=== PATIENT | female | born 1945 | race Caucasian/White ===

== ENCOUNTER 2020-05-30 07:16 | Outpatient (REF) | payer MEDICARE, SELFPAY ==
[2020-05-30 08:56] LABS: MANUAL DIFF FLAG NO
[2020-05-30 09:05] LABS: Basophils Percent Auto 0.3 % (0-2); Eosinophils Absolute Auto 0.1 X10*3/uL (0.0-0.4); Eosinophils Percent Auto 1.2 % (0-4); Hematocrit 45.7 % (37-47); Hemoglobin 14.9 g/dl (12.0-16.0); Imm Gran Abs Auto 0.02 X10*3/uL (0.00-0.03); Imm Gran Pct Auto 0.3 % (0.0-0.4); Lymphocytes Absolute Auto 1.5 X10*3/uL (1.2-4.9); Lymphocytes Percent Auto 25.4 % (20-40); Mean Corpuscular HGB Conc 32.6 g/dl (31.0-35.0); Mean Corpuscular Hemoglobin 30.6 pg (27.0-33.0); Mean Corpuscular Volume 93.8 fL (80-98); Mean Platelet Volume 10.1 fL (9.4-12.3); Monocytes Absolute Auto 0.5 X10*3/uL (0.1-1.2); Monocytes Percent Auto 7.7 % (2-11); Neutrophils Percent Auto 65.1 % (45-73); Platelet Count 324 X10*3/uL (160-400); Red Blood Count 4.87 X10*6/uL (4.20-5.50); Red Cell Distribution Width 11.7 % (11.0-16.0); White Blood Count 6.1 X10*3/uL (4.8-10.8)
[2020-05-30 09:08] LABS: Glucose Urine UA NEG (NEG); Leukocyte Esterase Urine 1+ (NEG); Nitrite Urine NEG (NEG); Specific Gravity - Urine 1.015 (1.005-1.025); Urine Blood 2+ (NEG); Urine Ketones NEG (NEG); Urine Protein NEG (NEG-TRACE)
[2020-05-30 09:11] LABS: Appearance Urine CLEAR; Color Urine YELLOW
[2020-05-30 09:21] LABS: Alanine Aminotransferase 49 U/L (0-31); Albumin Level 4.2 g/dL (3.5-5.0); Alkaline Phosphatase 93 U/L (39-117); Anion Gap 11 (12-20); Aspartate Amino Transferase 35 U/L (5-31); Bilirubin Total 0.5 mg/dL (0.0-1.0); Blood Urea Nitrogen 11 mg/dL (9-16); Calcium 8.9 mg/dL (8.4-10.2); Carbon Dioxide 30 mmol/L (22-29); Chloride 101 mmol/L (96-108); Cholesterol 191 mg/dL; Estimated Glomerular Filt Rate > 60; Glucose Fasting 106 mg/dL (60-99); HDL Cholesterol 44 mg/dL; LDL Cholesterol Calculated 107 mg/dl; Potassium 4.8 mmol/l (3.3-5.1); Sodium 137 mmol/L (135-145); Total Protein 6.9 g/dL (6.5-8.0); Triglycerides 202 mg/dL
[2020-05-30 09:23] LABS: Renal Epithelial Cells Urine 1+ /LPF; Squamous Epithelial Cell Urine 1+ /LPF
[2020-05-30 09:46] LABS: Free T4 (Free Thyroxine) 1.08 ng/dL (0.71-1.85); Thyroid Stimulating Hormone 2.54 mIU/mL (0.32-4.0); Vitamin D 25-OH Total 34.1 ng/mL (>30)
== END 2020-05-30 07:17 | disposition home or self-care (01) ==
LOC: HO.LAB 07:16
PROVIDERS: PCP Internal Medicine; Visit Provider Internal Medicine
DX: N02.9 Recurrent and persistent hematuria with unspecified morphologic changes (principal); I10 Essential (primary) hypertension; E78.5 Hyperlipidemia, unspecified; E03.9 Hypothyroidism, unspecified; E04.1 Nontoxic single thyroid nodule; M81.0 Age-related osteoporosis without current pathological fracture
CPT/HCPCS: 36415; 80053; 80061; 81001; 81003; 82306; 84439; 84443; 85025; 87086; 88112

== ENCOUNTER 2020-06-12 12:59 | Outpatient (REF) | payer MEDICARE, OTHER, SELFPAY | END 2020-06-12 13:00 | disposition home or self-care (01) | LOC: HO.LAB 12:59 | PROVIDERS: Visit Provider Internal Medicine | DX: Z20.828 Contact with and (suspected) exposure to other viral communicable diseases (principal) | CPT/HCPCS: 87635 ==

== ENCOUNTER 2020-09-05 09:29 | Outpatient (REF) | payer MEDICARE, OTHER, SELFPAY | END 2020-09-05 09:30 | disposition home or self-care (01) | LOC: HO.LAB 09:29 | PROVIDERS: PCP Internal Medicine; Visit Provider Internal Medicine | DX: Z20.822 Contact with and (suspected) exposure to COVID-19 (principal) | CPT/HCPCS: 36415; C9803; U0003 ==

== ENCOUNTER 2020-09-29 08:15 | Outpatient (REF) | payer MEDICARE, OTHER, SELFPAY ==
--- NOTE | ~2020-09-29 | US_ITS ---
EXAMINATION: US THYROID CLINICAL INFORMATION: Thyroid nodule. COMPARISON: Ultrasound soft tissue head/neck thyroid dated 09/29/2019 and 02/08/2019. TECHNIQUE: Linear transducer grayscale and color Doppler examination with attention to the region of the thyroid. FINDINGS: SIZE: Measurements of the solitary left thyroid lobe and nodules are given in sagittal, anteroposterior and transverse dimensions respectively. Right Thyroid Lobe: Surgically absent. Left Thyroid Lobe: 4.6 x 2.5 x 2.3 cm, volume 14.2 mL. Previously 4.7 x 2.8 x 2.3 cm, volume 15.8 mL. Parenchyma: The gland echotexture is heterogeneous. Thyroid vascularity is increased. Isthmus: Surgically absent. Estimated total number of nodules greater than or equal to 1 cm: 1. Branch Account Executive nodules are described as follows: 1. Location: Left mid. Size: 3.0 x 2.3 x 2.3 cm, volume 8.0 mL. Previously: 3.2 x 2.5 x 2.4 cm, volume 10.4 mL. Nodule characteristics: Composition: Solid/almost completely solid (2). Echogenicity: Hypoechoic (2). Shape: Not taller than wide (0). Margins: Smooth (0). Echogenic Foci: Punctate echogenic foci (3). ACR TI-RADS total points: 7 ACR TI-RADS category: 5 Significant change in size (>/= 20% in 2 dimensions and minimal increase of 2 mm): 7 Change in features: None Change in ACR TI-RADS risk category: 5 2. Location: Left inferior. Size: 0.8 x 0.8 x 0.9 cm, volume 0.3 mL. Previously: 1.2 x 1.0 x 1.1 cm, volume 0.7 mL. Nodule characteristics: Composition: Cannot be determined (2). Echogenicity: Cannot be determined (1). Shape: Not taller than wide (0). Margins: Smooth (0). Echogenic Foci: Macrocalcifications (1). ACR TI-RADS total points: 4 ACR TI-RADS category: 4 Significant change in size (>/= 20% in 2 dimensions and minimal increase of 2 mm): Slightly improved in size. Change in features: None Change in ACR TI-RADS risk category: None 3. Location: Left inferior. Size: 0.6 x 0.5 x 0.7 cm, volume 0.1 mL. Previously: Not documented on the prior study. cm. Nodule characteristics: Composition: Cannot be determined (2). Echogenicity: Cannot be determined (1). Shape: Not taller than wide (0). Margins: Smooth (0). Echogenic Foci: None (0). ACR TI-RADS total points: 3 ACR TI-RADS category: 3 Significant change in size (>/= 20% in 2 dimensions and minimal increase of 2 mm): None Change in features: None. Change in ACR TI-RADS risk category: None. NODES: No lymphadenopathy is seen in the tissue surrounding the thyroid gland. US/US thyroid IMPRESSION: Stable thyroid nodules. The largest nodule left midpole has been biopsied previously 03/09/2018. Recommend continued follow-up. ACR TI-RADS RECOMMENDATIONS: Ultrasound-guided fine-needle aspiration, followup ultrasound, no further follow up. * TR1 (0 point) and TR 2 (2 points): No FNA or follow up * TR3 (3 points): FNA if more than or equal to 2.5 cm in maximum dimension, follow up in 1, 3 and 5 years if 1.5 to 2.4 cm in maximum dimension. * TR4 (4-6 points): FNA if more than or equal to 1.5 cm in maximum dimension, follow up in 1, 2, 3 and 5 years if 1 to 1.4 cm in maximum dimension. * TR5 (more than or equal to 7 points): FNA if more than or equal to 1 cm in maximum dimension, follow up every year for 5 years if 0.5 to 0.9 cm in maximum dimension. * TR3, TR4 or TR5 nodules that are below the size threshold for follow up receive no follow up.
== END 2020-09-29 08:16 | disposition home or self-care (01) ==
LOC: HO.US 08:15
PROVIDERS: PCP Internal Medicine; Visit Provider Internal Medicine Endocrinology, Diabetes & Metabolism
DX: E04.2 Nontoxic multinodular goiter (principal)
CPT/HCPCS: 76536

== ENCOUNTER 2020-10-13 07:27 | Outpatient (REF) | payer MEDICARE, OTHER, SELFPAY ==
[2020-10-13 07:54] LABS: MANUAL DIFF FLAG NO
[2020-10-13 08:04] LABS: Basophils Percent Auto 0.3 % (0-2); Eosinophils Absolute Auto 0.1 X10*3/uL (0.0-0.4); Eosinophils Percent Auto 1.2 % (0-4); Hematocrit 46.2 % (37-47); Hemoglobin 15.2 g/dl (12.0-16.0); Imm Gran Abs Auto 0.01 X10*3/uL (0.00-0.03); Imm Gran Pct Auto 0.2 % (0.0-0.4); Lymphocytes Percent Auto 31.3 % (20-40); Mean Corpuscular HGB Conc 32.9 g/dl (31.0-35.0); Mean Corpuscular Hemoglobin 30.6 pg (27.0-33.0); Mean Corpuscular Volume 93.1 fL (80-98); Mean Platelet Volume 10.1 fL (9.4-12.3); Monocytes Absolute Auto 0.5 X10*3/uL (0.1-1.2); Monocytes Percent Auto 7.6 % (2-11); Neutrophils Absolute Auto 3.8 X10*3/uL (2.0-8.3); Neutrophils Percent Auto 59.4 % (45-73); Platelet Count 304 X10*3/uL (160-400); Red Blood Count 4.96 X10*6/uL (4.20-5.50); Red Cell Distribution Width 11.9 % (11.0-16.0); White Blood Count 6.4 X10*3/uL (4.8-10.8)
[2020-10-13 08:32] LABS: Alanine Aminotransferase 29 U/L (0-31); Albumin Level 4.3 g/dL (3.5-5.0); Alkaline Phosphatase 70 U/L (39-117); Anion Gap 11 (12-20); Aspartate Amino Transferase 23 U/L (5-31); Bilirubin Total 0.7 mg/dL (0.0-1.0); Blood Urea Nitrogen 14 mg/dL (9-16); Calcium 9.3 mg/dL (8.4-10.2); Carbon Dioxide 31 mmol/L (22-29); Chloride 104 mmol/L (96-108); Cholesterol 216 mg/dL; Estimated Glomerular Filt Rate > 60; Glucose Fasting 101 mg/dL (60-99); HDL Cholesterol 51 mg/dL; LDL Cholesterol Calculated 125 mg/dl; Potassium 5.1 mmol/L (3.3-5.1); Sodium 141 mmol/L (135-145); Triglycerides 200 mg/dL
[2020-10-13 08:38] LABS: Glucose Urine UA NEG (NEG); Leukocyte Esterase Urine 3+ (NEG); Nitrite Urine POS (NEG); UACC Culture Trigger YES; Urine Blood 2+ (NEG); Urine Ketones NEG (NEG); Urine Protein NEG (NEG-TRACE)
[2020-10-13 08:39] LABS: Appearance Urine CLOUDY; Color Urine YELLOW
[2020-10-13 08:47] LABS: Bacteria Urine 4+ /LPF; Mucus Urine 1+ /LPF; Renal Epithelial Cells Urine 1+ /LPF; Squamous Epithelial Cell Urine 1+ /LPF
[2020-10-13 08:56] LABS: Free T4 (Free Thyroxine) 1.26 ng/dL (0.71-1.85); Thyroid Stimulating Hormone 1.92 uIU/mL (0.32-4.0); Vitamin D 25-OH Total 33.2 ng/mL (>30)
== END 2020-10-13 07:28 | disposition home or self-care (01) ==
LOC: HO.LAB 07:27
PROVIDERS: PCP Internal Medicine; Visit Provider Internal Medicine
DX: I10 Essential (primary) hypertension (principal); E78.00 Pure hypercholesterolemia, unspecified; R73.01 Impaired fasting glucose; E03.9 Hypothyroidism, unspecified; E04.1 Nontoxic single thyroid nodule; E55.9 Vitamin D deficiency, unspecified; M81.0 Age-related osteoporosis without current pathological fracture; N02.9 Recurrent and persistent hematuria with unspecified morphologic changes
CPT/HCPCS: 36415; 80053; 80061; 81001; 81003; 82306; 84439; 84443; 85025; 87086; 87088; 87186

== ENCOUNTER 2020-10-17 07:17 | Outpatient (REF) | payer MEDICARE, OTHER, SELFPAY ==
[2020-10-17 09:15] LABS: Free T4 (Free Thyroxine) 1.11 ng/dL (0.71-1.85)
== END 2020-10-17 07:18 | disposition home or self-care (01) ==
LOC: HO.LAB 07:17
PROVIDERS: PCP Internal Medicine; Visit Provider Internal Medicine Endocrinology, Diabetes & Metabolism
DX: E89.0 Postprocedural hypothyroidism (principal)
CPT/HCPCS: 36415; 84439; 84443

== ENCOUNTER → 2020-11-03 08:05 | Outpatient (BNVA) | payer MEDICARE, OTHER, SELFPAY | PROVIDERS: PCP Internal Medicine; Referring Provider Internal Medicine; Visit Provider Internal Medicine Endocrinology, Diabetes & Metabolism | DX: Z13.89 Encounter for screening for other disorder (principal) | CPT/HCPCS: 99212 ==

== ENCOUNTER 2020-11-03 08:36 | Outpatient (REF) | payer MEDICARE, OTHER, SELFPAY ==
[2020-11-10 13:47] LABS: N-Telopeptide 14 (see note); NTXCreaRU 86 mg/dL (20-275)
== END 2020-11-03 08:37 | disposition home or self-care (01) ==
LOC: HO.10HDL 08:36
PROVIDERS: Visit Provider Internal Medicine Endocrinology, Diabetes & Metabolism
DX: M81.0 Age-related osteoporosis without current pathological fracture (principal); E04.2 Nontoxic multinodular goiter
CPT/HCPCS: 82523; 99212

== ENCOUNTER 2020-11-07 12:49 | Outpatient (REF) | payer MEDICARE, OTHER, SELFPAY ==
--- NOTE | ~2020-11-07 | MM_ITS ---
EXAMINATION: BONE DENSITOMETRY CLINICAL INDICATION: Age-related osteoporosis without current pathological fracture. COMPARISON: Previous BD dated 10/04/2017 and baseline BD dated 09/05/2015. TECHNIQUE: Using a [employer] DXA System (software version: 13.1) manufactured by [employer], dual-energy x-ray absorptiometry was performed of the lumbar spine and left hip. The images are of good technical quality. Summary results are attached. FINDINGS: AP SPINE L1-L4: Current: BMD 0.888 g/cm2, Z-score -0.7, T-score -2.4, osteopenia, 8.2% increase from previous, 5.1% increase from baseline (<5% change is not significant). Prior: BMD 0.821 g/cm2. Baseline: BMD 0.845 g/cm2. LEFT FEMUR, NECK: Current: BMD 0.682 g/cm2, Z-score -0.7, T-score -2.6, osteoporosis. Prior: BMD 0.647 g/cm2. Baseline: BMD 0.716 g/cm2. LEFT FEMUR, TOTAL: Current: BMD 0.785 g/cm2, Z-score -0.1, T-score -1.8, osteopenia, 1.0% decrease from previous, 1.9% decrease from baseline (<5% change is not significant). Prior: BMD 0.793 g/cm2. Baseline: BMD 0.800 g/cm2. IDENTIFIED RISK FACTORS: Osteoporosis, low calcium intake, secondary osteoporosis, menopause. HISTORY OF FRACTURE: None listed. MEDICATIONS: Calcium supplements and multivitamins. MM/XR DEXA axial skeleton IMPRESSION: 1. DIAGNOSIS: Osteoporosis based on the lowest T-score value of -2.6 in the femoral neck applying World Health Organization criteria. 2. 10-YEAR FRACTURE RISK PREDICTION, FRAX: Major osteoporotic fracture (clinical spine, forearm, hip or shoulder) 17.1%. Hip fracture 5.5%. 3. Treatment Recommendations: NOF guidelines recommend consideration for treatment in postmenopausal women and men age 50 and older presenting with the following: -A hip or vertebral (clinical or morphometric) fracture. -T-score less than or equal to -2.5 at the femoral neck or spine after appropriate evaluation to exclude secondary causes. -Low bone mass at the hip or spine and a 10-year fracture probability by FRAX of greater than or equal to 3% for hip fracture or greater than or equal to 20% for major osteoporotic fracture based on the [place] adapted WHO algorithm. 4. Other Recommendations: All treatment decisions require clinical judgment and consideration of individual patient factors, including patient preferences, comorbidities, previous drug use, risk factors not captured in the FRAX model (e.g. frailty, falls, vitamin D deficiency, increased bone turnover, interval significant decline in bone density) and possible under or overestimation of fracture risk by FRAX. Additional medical evaluation for secondary cause of low bone mineral density may be appropriate. FUTURE SCAN RECOMMENDATION: People with diagnosed cases of osteoporosis or at high risk for fracture should have regular bone mineral density tests. For patients eligible for Medicare, routine testing is allowed once every 2 years. The testing frequency can be increased to one year for patients who have rapidly progressing disease, those who are receiving or discontinuing medical therapy to restore bone mass, or have additional risk factors.
== END 2020-11-07 12:50 | disposition home or self-care (01) ==
LOC: HO.MAMMO 12:49
PROVIDERS: Visit Provider Internal Medicine Endocrinology, Diabetes & Metabolism
DX: M81.0 Age-related osteoporosis without current pathological fracture (principal); Z78.0 Asymptomatic menopausal state; Z79.899 Other long term (current) drug therapy
CPT/HCPCS: 77080

== ENCOUNTER 2021-01-16 07:02 | Outpatient (REF) | payer MEDICARE, OTHER, SELFPAY ==
[2021-01-16 08:14] LABS: Alanine Aminotransferase 23 U/L (0-31); Albumin Level 4.3 g/dL (3.5-5.0); Alkaline Phosphatase 71 U/L (39-117); Anion Gap 12 (12-20); Aspartate Amino Transferase 21 U/L (5-31); Bilirubin Total 0.5 mg/dL (0.0-1.0); Blood Urea Nitrogen 15 mg/dL (9-16); Calcium 9.5 mg/dL (8.4-10.2); Carbon Dioxide 29 mmol/L (22-29); Chloride 100 mmol/L (96-108); Cholesterol 214 mg/dL; Estimated Glomerular Filt Rate > 60; Glucose Fasting 99 mg/dL (60-99); HDL Cholesterol 53 mg/dL; LDL Cholesterol Calculated 120 mg/dl; Sodium 137 mmol/L (135-145); Total Protein 7.1 g/dL (6.5-8.0); Triglycerides 205 mg/dL
[2021-01-16 08:24] LABS: Free T4 (Free Thyroxine) 1.11 ng/dL (0.71-1.85); Thyroid Stimulating Hormone 1.37 uIU/mL (0.32-4.0); Vitamin D 25-OH Total 31.5 ng/mL (>30)
[2021-01-16 08:31] LABS: Glucose Urine UA NEG (NEG); Leukocyte Esterase Urine TRACE (NEG); Nitrite Urine NEG (NEG); Specific Gravity - Urine <= 1.005 (1.005-1.025); UACC Culture Trigger YES; Urine Blood 1+ (NEG); Urine Ketones NEG (NEG); Urine Protein NEG (NEG-TRACE)
[2021-01-16 08:33] LABS: Appearance Urine CLEAR; Color Urine STRAW
[2021-01-16 08:46] LABS: Bacteria Urine 3+ /LPF; RBC Urine 0-2 /HPF (0); Squamous Epithelial Cell Urine 1+ /LPF
== END 2021-01-16 07:03 | disposition home or self-care (01) ==
LOC: HO.LAB 07:02
PROVIDERS: PCP Internal Medicine; Visit Provider Internal Medicine
DX: E78.00 Pure hypercholesterolemia, unspecified (principal); I10 Essential (primary) hypertension; N02.9 Recurrent and persistent hematuria with unspecified morphologic changes; E03.9 Hypothyroidism, unspecified; E04.1 Nontoxic single thyroid nodule; M81.0 Age-related osteoporosis without current pathological fracture
CPT/HCPCS: 36415; 80053; 80061; 81001; 81003; 82306; 84439; 84443; 87086; 87088; 87186

== ENCOUNTER 2021-03-05 08:57 | Outpatient (REF) | payer MEDICARE, OTHER, SELFPAY ==
--- NOTE | ~2021-03-05 | XR_ITS ---
EXAMINATION: XR THORACIC SPINE XR SCAPULA, LEFT CLINICAL INFORMATION: Pain. COMPARISON: Chest radiograph dated 06/01/2019. TECHNIQUE: AP, lateral, and swimmer's views of the thoracic spine. AP and scapular Y views of the left scapula. FINDINGS: Thoracic Spine: Severe dextrocurvature of the thoracic spine is unchanged. No acute fracture or subluxation. No loss of vertebral body height. Multilevel loss of intervertebral disc height with bridging endplate osteophytes, unchanged. The visualized lungs are clear. Left Scapula: No acute fracture or dislocation. Mild joint space narrowing with small marginal osteophytes at the acromioclavicular and glenohumeral joints. No osseous erosion. No abnormal soft tissue calcification. XR/XR thoracic spine 2V IMPRESSION: Thoracic Spine: Severe dextrocurvature of the thoracic spine with prominent multilevel degenerative disc disease and bridging endplate osteophytes, unchanged. No acute osseous abnormality. Left Scapula: No acute osseous abnormality. Mild acromioclavicular and glenohumeral osteoarthritis.
--- NOTE | ~2021-03-05 | XR_ITS ---
EXAMINATION: XR THORACIC SPINE XR SCAPULA, LEFT CLINICAL INFORMATION: Pain. COMPARISON: Chest radiograph dated 06/01/2019. TECHNIQUE: AP, lateral, and swimmer's views of the thoracic spine. AP and scapular Y views of the left scapula. FINDINGS: Thoracic Spine: Severe dextrocurvature of the thoracic spine is unchanged. No acute fracture or subluxation. No loss of vertebral body height. Multilevel loss of intervertebral disc height with bridging endplate osteophytes, unchanged. The visualized lungs are clear. Left Scapula: No acute fracture or dislocation. Mild joint space narrowing with small marginal osteophytes at the acromioclavicular and glenohumeral joints. No osseous erosion. No abnormal soft tissue calcification. XR/XR scapula LT IMPRESSION: Thoracic Spine: Severe dextrocurvature of the thoracic spine with prominent multilevel degenerative disc disease and bridging endplate osteophytes, unchanged. No acute osseous abnormality. Left Scapula: No acute osseous abnormality. Mild acromioclavicular and glenohumeral osteoarthritis.
== END 2021-03-05 08:58 | disposition home or self-care (01) ==
LOC: HO.XRAY 08:57
PROVIDERS: PCP Internal Medicine; Visit Provider Internal Medicine
DX: M54.6 Pain in thoracic spine (principal)
CPT/HCPCS: 72070; 73010

== ENCOUNTER 2021-03-26 07:09 | Outpatient (REF) | payer MEDICARE, OTHER, SELFPAY ==
--- NOTE | ~2021-03-26 | XR_ITS ---
EXAMINATION: XR CHEST CLINICAL INFORMATION: Dyspnea COMPARISON: Previous chest x-rays most recent May 2019 TECHNIQUE: 2 views of the chest were obtained. FINDINGS: There is a severe thoracic scoliosis convex to the right. Hilar and mediastinal contours are unremarkable. The lungs are clear. There is no pleural effusion or pneumothorax. There is severe scoliosis and degenerative changes of the spine. XR/XR chest 2V IMPRESSION: Severe scoliosis. No evidence for acute disease in the chest.
[2021-03-26 08:31] LABS: MANUAL DIFF FLAG NO
[2021-03-26 08:33] LABS: Basophils Percent Auto 0.3 % (0-2); Eosinophils Absolute Auto 0.1 X10*3/uL (0.0-0.4); Eosinophils Percent Auto 1.7 % (0-4); Hematocrit 46.2 % (37-47); Hemoglobin 15.2 g/dl (12.0-16.0); Imm Gran Abs Auto 0.02 X10*3/uL (0.00-0.03); Imm Gran Pct Auto 0.3 % (0.0-0.4); Lymphocytes Absolute Auto 1.9 X10*3/uL (1.2-4.9); Mean Corpuscular HGB Conc 32.9 g/dl (31.0-35.0); Mean Corpuscular Hemoglobin 30.5 pg (27.0-33.0); Mean Corpuscular Volume 92.8 fL (80-98); Mean Platelet Volume 10.7 fL (9.4-12.3); Monocytes Absolute Auto 0.5 X10*3/uL (0.1-1.2); Monocytes Percent Auto 7.9 % (2-11); Neutrophils Absolute Auto 4.1 X10*3/uL (2.0-8.3); Neutrophils Percent Auto 61.8 % (45-73); Platelet Count 294 X10*3/uL (160-400); Red Blood Count 4.98 X10*6/uL (4.20-5.50); Red Cell Distribution Width 11.5 % (11.0-16.0); White Blood Count 6.6 X10*3/uL (4.8-10.8)
[2021-03-26 09:32] LABS: B Type Natriuretic Peptide 81 pg/mL (<100)
[2021-03-26 09:50] LABS: TSH reflex Free T4 0.03 uIU/mL (0.32-4.0)
[2021-03-26 10:23] LABS: Free T4 (Free Thyroxine) 1.36 ng/dL (0.71-1.85)
== END 2021-03-26 07:10 | disposition home or self-care (01) ==
LOC: HO.LAB 07:09
PROVIDERS: PCP Internal Medicine; Visit Provider Internal Medicine
DX: R06.00 Dyspnea, unspecified (principal)
CPT/HCPCS: 36415; 71046; 83880; 84439; 84443; 85025

== ENCOUNTER 2021-05-22 07:08 | Outpatient (REF) | payer MEDICARE, OTHER, SELFPAY ==
[2021-05-22 07:24] LABS: MANUAL DIFF FLAG NO
[2021-05-22 07:58] LABS: Basophils Percent Auto 0.3 % (0-2); Eosinophils Absolute Auto 0.1 X10*3/uL (0.0-0.4); Eosinophils Percent Auto 1.7 % (0-4); Hematocrit 45.9 % (37-47); Hemoglobin 15.3 g/dl (12.0-16.0); Imm Gran Abs Auto 0.02 X10*3/uL (0.00-0.03); Imm Gran Pct Auto 0.3 % (0.0-0.4); Lymphocytes Absolute Auto 2.1 X10*3/uL (1.2-4.9); Lymphocytes Percent Auto 29.1 % (20-40); Mean Corpuscular HGB Conc 33.3 g/dl (31.0-35.0); Mean Corpuscular Hemoglobin 30.2 pg (27.0-33.0); Mean Corpuscular Volume 90.7 fL (80-98); Monocytes Absolute Auto 0.6 X10*3/uL (0.1-1.2); Monocytes Percent Auto 8.6 % (2-11); Neutrophils Absolute Auto 4.3 X10*3/uL (2.0-8.3); Platelet Count 332 X10*3/uL (160-400); Red Blood Count 5.06 X10*6/uL (4.20-5.50); Red Cell Distribution Width 11.5 % (11.0-16.0); White Blood Count 7.1 X10*3/uL (4.8-10.8)
[2021-05-22 08:15] LABS: Alanine Aminotransferase 27 U/L (0-31); Albumin Level 4.2 g/dL (3.5-5.0); Alkaline Phosphatase 85 U/L (39-117); Anion Gap 11 (12-20); Aspartate Amino Transferase 21 U/L (5-31); Bilirubin Total 0.6 mg/dL (0.0-1.0); Blood Urea Nitrogen 10 mg/dL (9-16); Calcium 9.8 mg/dL (8.4-10.2); Carbon Dioxide 32 mmol/L (22-29); Chloride 100 mmol/L (96-108); Cholesterol 218 mg/dL; Estimated Glomerular Filt Rate > 60; Glucose Fasting 102 mg/dL (60-99); HDL Cholesterol 44 mg/dL; LDL Cholesterol Calculated 121 mg/dl; Sodium 138 mmol/L (135-145); Triglycerides 267 mg/dL
[2021-05-22 08:33] LABS: Appearance Urine HAZY; Color Urine YELLOW; Glucose Urine UA NEG (NEG); Leukocyte Esterase Urine 3+ (NEG); Nitrite Urine POS (NEG); PH 6.5 (5.0-8.0); UACC Culture Trigger YES; Urine Blood 2+ (NEG); Urine Ketones NEG (NEG); Urine Protein NEG (NEG-TRACE)
[2021-05-22 08:37] LABS: Free T4 (Free Thyroxine) 1.12 ng/dL (0.71-1.85); Thyroid Stimulating Hormone 0.15 uIU/mL (0.32-4.0); Vitamin D 25-OH Total 33.8 ng/mL (>30)
[2021-05-22 08:43] LABS: Bacteria Urine 4+ /LPF; Squamous Epithelial Cell Urine 1+ /LPF; WBC Urine 50-75 /HPF (0-4)
[2021-05-22 08:44] LABS: Renal Epithelial Cells Urine TRACE /LPF
== END 2021-05-22 07:09 | disposition home or self-care (01) ==
LOC: HO.LAB 07:08
PROVIDERS: PCP Internal Medicine; Visit Provider Internal Medicine
DX: I10 Essential (primary) hypertension (principal); N02.9 Recurrent and persistent hematuria with unspecified morphologic changes; E78.00 Pure hypercholesterolemia, unspecified; E89.0 Postprocedural hypothyroidism; E04.1 Nontoxic single thyroid nodule; E55.9 Vitamin D deficiency, unspecified; M81.0 Age-related osteoporosis without current pathological fracture
CPT/HCPCS: 36415; 80053; 80061; 81001; 82306; 84439; 84443; 85025; 87086; 87088; 87186

== ENCOUNTER 2021-09-23 07:06 | Outpatient (REF) | payer MEDICARE, OTHER, SELFPAY ==
[2021-09-23 07:25] LABS: MANUAL DIFF FLAG NO
[2021-09-23 08:02] LABS: Appearance Urine HAZY; Color Urine STRAW; Glucose Urine UA NEG (NEG); Leukocyte Esterase Urine 3+ (NEG); Nitrite Urine NEG (NEG); PH 7.5 (5.0-8.0); Specific Gravity - Urine <= 1.005 (1.005-1.025); UACC Culture Trigger YES; Urine Blood 1+ (NEG); Urine Ketones NEG (NEG); Urine Protein NEG (NEG-TRACE)
[2021-09-23 08:03] LABS: Basophils Percent Auto 0.4 % (0-2); Eosinophils Absolute Auto 0.1 X10*3/uL (0.0-0.4); Eosinophils Percent Auto 1.1 % (0-4); Hematocrit 44.8 % (37.0-47.0); Hemoglobin 14.8 g/dl (12.0-16.0); Imm Gran Abs Auto 0.02 X10*3/uL (0.00-0.03); Imm Gran Pct Auto 0.2 % (0.0-0.4); Lymphocytes Absolute Auto 2.1 X10*3/uL (1.2-4.9); Lymphocytes Percent Auto 25.6 % (20-40); Mean Corpuscular Volume 93.9 fL (80.0-98.0); Mean Platelet Volume 9.9 fL (9.4-12.3); Monocytes Absolute Auto 0.7 X10*3/uL (0.1-1.2); Monocytes Percent Auto 8.1 % (2-11); Neutrophils Absolute Auto 5.2 x10*3/uL (2.0-8.3); Neutrophils Percent Auto 64.6 % (45-73); Platelet Count 351 X10*3/uL (160-400); Red Blood Count 4.77 X10*6/uL (4.20-5.50); Red Cell Distribution Width 11.8 % (11.0-16.0); White Blood Count 8.1 X10*3/uL (4.8-10.8)
[2021-09-23 08:27] LABS: Bacteria Urine 4+ /LPF; Squamous Epithelial Cell Urine 4+ /LPF
[2021-09-23 08:31] LABS: Alanine Aminotransferase 21 U/L (0-31); Albumin Level 4.3 g/dL (3.5-5.0); Alkaline Phosphatase 80 U/L (39-117); Anion Gap 12 (12-20); Aspartate Amino Transferase 21 U/L (5-31); Bilirubin Total 0.6 mg/dL (0.0-1.0); Blood Urea Nitrogen 8 mg/dL (9-16); Calcium 9.8 mg/dL (8.4-10.2); Carbon Dioxide 32 mmol/L (22-29); Chloride 101 mmol/L (96-108); Cholesterol 210 mg/dL; Estimated Glomerular Filt Rate > 60; Glucose Fasting 98 mg/dL (60-99); HDL Cholesterol 51 mg/dL; LDL Cholesterol Calculated 120 mg/dl; Potassium 4.6 mmol/L (3.3-5.1); Sodium 140 mmol/L (135-145); Total Protein 7.1 g/dL (6.5-8.0); Triglycerides 198 mg/dL
[2021-09-23 08:55] LABS: Free T4 (Free Thyroxine) 1.19 ng/dL (0.71-1.85); Thyroid Stimulating Hormone 2.51 uIU/mL (0.32-4.0)
== END 2021-09-23 07:07 | disposition home or self-care (01) ==
LOC: HO.LAB 07:06
PROVIDERS: PCP Internal Medicine; Visit Provider Internal Medicine
DX: I10 Essential (primary) hypertension (principal); E55.9 Vitamin D deficiency, unspecified; E78.00 Pure hypercholesterolemia, unspecified; E03.9 Hypothyroidism, unspecified
CPT/HCPCS: 36415; 80053; 80061; 81001; 81003; 82306; 84439; 84443; 85025; 87086; 87088; 87186

== ENCOUNTER 2022-01-25 07:00 | Outpatient (REF) | payer MEDICARE, OTHER, SELFPAY ==
[2022-01-25 07:59] LABS: MANUAL DIFF FLAG NO
[2022-01-25 08:20] LABS: Basophils Percent Auto 0.3 % (0-2); Eosinophils Absolute Auto 0.1 X10*3/uL (0.0-0.4); Hematocrit 46.3 % (37.0-47.0); Hemoglobin 15.4 g/dl (12.0-16.0); Imm Gran Abs Auto 0.01 X10*3/uL (0.00-0.03); Imm Gran Pct Auto 0.2 % (0.0-0.4); Lymphocytes Absolute Auto 1.6 X10*3/uL (1.2-4.9); Mean Corpuscular HGB Conc 33.3 g/dl (31.0-35.0); Mean Corpuscular Hemoglobin 30.5 pg (27.0-33.0); Mean Corpuscular Volume 91.7 fL (80.0-98.0); Mean Platelet Volume 9.8 fL (9.4-12.3); Monocytes Absolute Auto 0.6 X10*3/uL (0.1-1.2); Monocytes Percent Auto 9.6 % (2-11); Neutrophils Percent Auto 62.9 % (45-73); Platelet Count 335 X10*3/uL (160-400); Red Blood Count 5.05 X10*6/uL (4.20-5.50); Red Cell Distribution Width 11.7 % (11.0-16.0); White Blood Count 6.3 X10*3/uL (4.8-10.8)
[2022-01-25 08:30] LABS: Urine Cytology See Pathology rpt
[2022-01-25 08:48] LABS: Alanine Aminotransferase 30 U/L (0-31); Albumin Level 4.3 g/dL (3.5-5.0); Alkaline Phosphatase 102 U/L (39-117); Anion Gap 15 (12-20); Aspartate Amino Transferase 27 U/L (5-31); Bilirubin Total 0.8 mg/dL (0.0-1.0); Blood Urea Nitrogen 9 mg/dL (9-16); Calcium 9.5 mg/dL (8.4-10.2); Carbon Dioxide 29 mmol/L (22-29); Chloride 96 mmol/L (96-108); Cholesterol 203 mg/dL; Estimated Glomerular Filt Rate > 60; Glucose Fasting 102 mg/dL (60-99); HDL Cholesterol 43 mg/dL; LDL Cholesterol Calculated 128 mg/dl; Potassium 5.5 mmol/L (3.3-5.1); Sodium 134 mmol/L (135-145); Total Protein 7.4 g/dL (6.5-8.0); Triglycerides 164 mg/dL
[2022-01-25 08:52] LABS: Appearance Urine HAZY; Color Urine YELLOW; Glucose Urine UA NEG (NEG); Leukocyte Esterase Urine 3+ (NEG); Nitrite Urine NEG (NEG); PH 6.5 (5.0-8.0); Specific Gravity - Urine <= 1.005 (1.005-1.025); UACC Culture Trigger YES; Urine Blood 1+ (NEG); Urine Ketones NEG (NEG); Urine Protein NEG (NEG-TRACE)
[2022-01-25 09:06] LABS: Bacteria Urine 3+ /LPF; Squamous Epithelial Cell Urine 1+ /LPF; WBC Clumps Urine NOTED
[2022-01-25 09:09] LABS: Free T4 (Free Thyroxine) 1.12 ng/dL (0.71-1.85); Thyroid Stimulating Hormone 2.24 uIU/mL (0.32-4.0); Vitamin D 25-OH Total 38.1 ng/mL (>30)
== END 2022-01-25 07:01 | disposition home or self-care (01) ==
LOC: HO.LAB 07:00
PROVIDERS: PCP Internal Medicine; Visit Provider Internal Medicine
DX: N02.9 Recurrent and persistent hematuria with unspecified morphologic changes (principal); I10 Essential (primary) hypertension; E78.00 Pure hypercholesterolemia, unspecified; E55.9 Vitamin D deficiency, unspecified; E03.9 Hypothyroidism, unspecified
CPT/HCPCS: 36415; 80053; 80061; 81001; 82306; 84439; 84443; 85025; 87086; 87088; 87186; 88112

== ENCOUNTER 2022-04-06 06:58 | Outpatient (REF) | payer MEDICARE, OTHER, SELFPAY ==
[2022-04-06 08:17] LABS: Free T4 (Free Thyroxine) 1.18 ng/dL (0.71-1.85); Thyroid Stimulating Hormone 2.08 uIU/mL (0.32-4.0)
== END 2022-04-06 06:59 | disposition home or self-care (01) ==
LOC: HO.LAB 06:58
PROVIDERS: PCP Internal Medicine; Visit Provider Internal Medicine Endocrinology, Diabetes & Metabolism
DX: E89.0 Postprocedural hypothyroidism (principal)
CPT/HCPCS: 36415; 84439; 84443

== ENCOUNTER → 2022-04-13 08:33 | Outpatient (BNVA) | payer MEDICARE, OTHER, SELFPAY | PROVIDERS: PCP Internal Medicine; Visit Provider Internal Medicine Endocrinology, Diabetes & Metabolism | DX: E04.2 Nontoxic multinodular goiter (principal); E03.9 Hypothyroidism, unspecified; M81.0 Age-related osteoporosis without current pathological fracture; E89.0 Postprocedural hypothyroidism; I10 Essential (primary) hypertension; E78.5 Hyperlipidemia, unspecified | CPT/HCPCS: 99212 ==

== ENCOUNTER 2022-05-31 07:01 | Outpatient (REF) | payer MEDICARE, OTHER, SELFPAY ==
[2022-05-31 07:18] LABS: MANUAL DIFF FLAG NO
[2022-05-31 07:33] LABS: Basophils Percent Auto 0.3 % (0-2); Eosinophils Absolute Auto 0.1 X10*3/uL (0.0-0.4); Eosinophils Percent Auto 0.9 % (0-4); Hematocrit 44.7 % (37.0-47.0); Hemoglobin 15.2 g/dl (12.0-16.0); Imm Gran Abs Auto 0.02 X10*3/uL (0.00-0.03); Imm Gran Pct Auto 0.3 % (0.0-0.4); Lymphocytes Absolute Auto 1.7 X10*3/uL (1.2-4.9); Lymphocytes Percent Auto 24.9 % (20-40); Mean Corpuscular Hemoglobin 31.3 pg (27.0-33.0); Mean Corpuscular Volume 92.2 fL (80.0-98.0); Mean Platelet Volume 9.6 fL (9.4-12.3); Monocytes Absolute Auto 0.5 X10*3/uL (0.1-1.2); Monocytes Percent Auto 7.6 % (2-11); Neutrophils Absolute Auto 4.5 x10*3/uL (2.0-8.3); Platelet Count 348 X10*3/uL (160-400); Red Blood Count 4.85 X10*6/uL (4.20-5.50); Red Cell Distribution Width 11.9 % (11.0-16.0); White Blood Count 6.8 X10*3/uL (4.8-10.8)
[2022-05-31 07:35] LABS: Urine Cytology See Pathology rpt
[2022-05-31 07:56] LABS: Alanine Aminotransferase 23 U/L (0-31); Albumin Level 4.4 g/dL (3.5-5.0); Alkaline Phosphatase 79 U/L (39-117); Anion Gap 14 (12-20); Aspartate Amino Transferase 21 U/L (5-31); Bilirubin Total 0.6 mg/dL (0.0-1.0); Blood Urea Nitrogen 13 mg/dL (9-16); Calcium 9.8 mg/dL (8.4-10.2); Carbon Dioxide 32 mmol/L (22-29); Chloride 99 mmol/L (96-108); Cholesterol 232 mg/dL; Estimated Glomerular Filt Rate > 60; Glucose Fasting 110 mg/dL (60-99); HDL Cholesterol 60 mg/dL; LDL Cholesterol Calculated 142 mg/dl; Phosphorus 3.1 mg/dL (2.7-4.5); Potassium 4.6 mmol/L (3.3-5.1); Sodium 140 mmol/L (135-145); Total Protein 7.2 g/dL (6.5-8.0); Triglycerides 154 mg/dL
[2022-05-31 08:03] LABS: Appearance Urine Cloudy; Color Urine Yellow; Glucose Urine UA Negative (Negative); Leukocyte Esterase Urine Large (3+) (Negative); Nitrite Urine Negative (Negative); PH 8.5 (5.0-9.0); Specific Gravity - Urine 1.015 (1.005-1.025); UMIC TRIGGER UACC YES; Urine Blood Small (1+) (Negative); Urine Ketones Negative (Negative); Urine Protein Trace mg/dL (Neg-Trace)
[2022-05-31 08:08] LABS: Bacteria Urine 4+ (None Seen); Hyaline Casts Urine 0-2 /LPF (0-2); UACC Culture Trigger YES; WBC Urine >50 /HPF (0-5)
[2022-05-31 08:17] LABS: Free T4 (Free Thyroxine) 1.08 ng/dL (0.71-1.85); Thyroid Stimulating Hormone 1.36 uIU/mL (0.32-4.0); Vitamin D 25-OH Total 33.6 ng/mL (>30)
[2022-06-01 15:11] LABS: Prot Elec - Albumin 4.1 g/dL (3.8-4.8); Prot Elec - Alpha1 0.3 g/dL (0.2-0.3); Prot Elec - Alpha2 0.7 g/dL (0.5-0.9); Prot Elec - Beta 1 0.4 g/dL (0.4-0.6); Prot Elec - Beta 2 0.4 g/dL (0.2-0.5); Prot Elec - Gamma 0.9 g/dL (0.8-1.7); Prot Elec - Total Protein 6.9 g/dL (6.1-8.1)
== END 2022-05-31 07:02 | disposition home or self-care (01) ==
LOC: HO.LAB 07:01
PROVIDERS: Absent Provider Internal Medicine Endocrinology, Diabetes & Metabolism; PCP Internal Medicine; Visit Provider Internal Medicine
DX: I10 Essential (primary) hypertension (principal); E55.9 Vitamin D deficiency, unspecified; E78.00 Pure hypercholesterolemia, unspecified; R31.1 Benign essential microscopic hematuria; E03.9 Hypothyroidism, unspecified; M81.0 Age-related osteoporosis without current pathological fracture
CPT/HCPCS: 36415; 80053; 80061; 81001; 81003; 82306; 84100; 84165; 84439; 84443; 85025; 86335; 87086; 87088; 87186; 88112

== ENCOUNTER 2022-06-01 09:39 | Outpatient (REF) | payer MEDICARE, OTHER, SELFPAY ==
--- NOTE | ~2022-06-01 | US_ITS ---
EXAMINATION: US THYROID CLINICAL INFORMATION: Nontoxic multinodular goiter. COMPARISON: Ultrasound thyroid 09/29/2020 and 10/02/2019. US-guided thyroid biopsy 03/09/2018 and 04/05/2019. TECHNIQUE: Linear transducer grayscale and color Doppler examination with attention to the region of the thyroid. FINDINGS: SIZE: Measurements of the solitary left thyroid lobe and nodules are given in sagittal, anteroposterior and transverse dimensions respectively. Right Thyroid Lobe: Surgically absent. Left Thyroid Lobe: 4.7 x 2.7 x 2.4 cm, volume 15.7 mL. Previously 4.6 x 2.5 x 2.3 cm, volume 14.2 mL. Parenchyma: The gland echotexture is homogeneous. Thyroid vascularity is normal. Isthmus: Surgically absent. Estimated total number of nodules greater than or equal to 1 cm: 2. Security Rep nodules are described as follows: 1. Location: Left mid. Size: 2.7 x 2.3 x 1.8 cm, volume 6.1 mL. Previously: 3.0 x 2.3 x 2.3 cm, volume 8.0 mL. Nodule characteristics: Composition: Solid (2). Echogenicity: Isoechoic (1). Shape: Taller than wide (3). Margins: Smooth (0). Echogenic Foci: Punctate echogenic foci (3). ACR TI-RADS total points: 9 Previous: 7 ACR TI-RADS category: 5 Previous: 5 Category change corresponds to a newly listed calcifications. These appear unchanged from prior exams for example axial image 22,23,27 and 36 on September 2020 exam. Category change also corresponds to taller than wide shape. 2. Location: Left inferior. Size: 1.0 x 0.8 x 0.8 cm, volume 0.3 mL. Previously: 0.8 x 0.8 x 0.9 cm, volume 0.3 mL. Nodule characteristics: Composition: Solid (2). Echogenicity: Hypoechoic (2). Shape: Not taller than wide (0). Margins: Smooth (0). Echogenic Foci: Macrocalcifications (1). ACR TI-RADS total points: 5 Previous: 4 ACR TI-RADS category: 4 Previous: 4 3. The 6 mm hypoechoic inferior nodule is not appreciated. NODES: No lymphadenopathy is seen in the tissue surrounding the thyroid gland. US/US thyroid IMPRESSION: 2 left thyroid nodules. Fine-needle aspiration of the largest nodule according to TI RADS criteria recommended. ACR TI-RADS RECOMMENDATION REFERENCE: Ultrasound-guided fine-needle aspiration, followup ultrasound, no further follow up. * TR1 (0 point) and TR 2 (2 points): No FNA or follow up. * TR3 (3 points): FNA if more than or equal to 2.5 cm in maximum dimension, followup ultrasound in 1, 3 and 5 years if 1.5 to 2.4 cm in maximum dimension. * TR4 (4-6 points): FNA if more than or equal to 1.5 cm in maximum dimension, followup ultrasound in 1, 2, 3 and 5 years if 1 to 1.4 cm in maximum dimension. * TR5 (more than or equal to 7 points): FNA if more than or equal to 1 cm in maximum dimension, followup ultrasound every year for 5 years if 0.5 to 0.9 cm in maximum dimension. * TR3, TR4 or TR5 nodules that are below the size threshold for followup receive no follow up.
== END 2022-06-01 09:40 | disposition home or self-care (01) ==
LOC: HO.US 09:39
PROVIDERS: Visit Provider Internal Medicine Endocrinology, Diabetes & Metabolism
DX: E04.2 Nontoxic multinodular goiter (principal)
CPT/HCPCS: 76536

== ENCOUNTER 2022-10-11 07:04 | Outpatient (REF) | payer MEDICARE, OTHER, SELFPAY ==
[2022-10-11 07:16] LABS: MANUAL DIFF FLAG NO
[2022-10-11 07:44] LABS: Basophils Percent Auto 0.5 % (0-2); Eosinophils Absolute Auto 0.1 X10*3/uL (0.0-0.4); Eosinophils Percent Auto 1.6 % (0-4); Imm Gran Abs Auto 0.01 X10*3/uL (0.00-0.03); Imm Gran Pct Auto 0.2 % (0.0-0.4); Lymphocytes Absolute Auto 1.9 X10*3/uL (1.2-4.9); Lymphocytes Percent Auto 31.6 % (20-40); Mean Corpuscular HGB Conc 32.6 g/dl (31.0-35.0); Mean Corpuscular Hemoglobin 30.7 pg (27.0-33.0); Mean Corpuscular Volume 94.3 fL (80.0-98.0); Mean Platelet Volume 10.1 fL (9.4-12.3); Monocytes Absolute Auto 0.5 X10*3/uL (0.1-1.2); Monocytes Percent Auto 8.3 % (2-11); Neutrophils Absolute Auto 3.6 x10*3/uL (2.0-8.3); Neutrophils Percent Auto 57.8 % (45-73); Platelet Count 330 X10*3/uL (160-400); Red Blood Count 4.88 X10*6/uL (4.20-5.50); Red Cell Distribution Width 11.9 % (11.0-16.0); White Blood Count 6.1 X10*3/uL (4.8-10.8)
[2022-10-11 07:54] LABS: Estimated Average Glucose 111 mg/dL; Hemoglobin A1c % 5.5 %
[2022-10-11 08:19] LABS: Appearance Urine Clear; Color Urine Yellow; Glucose Urine UA Negative (Negative); Leukocyte Esterase Urine Large (3+) (Negative); Nitrite Urine Negative (Negative); PH 8.5 (5.0-9.0); Specific Gravity - Urine 1.015 (1.005-1.025); UMIC TRIGGER UACC YES; Urine Blood Small (1+) (Negative); Urine Ketones Negative (Negative); Urine Protein Negative (Neg-Trace)
[2022-10-11 08:26] LABS: Alanine Aminotransferase 24 U/L (0-31); Albumin Level 4.1 g/dL (3.5-5.0); Alkaline Phosphatase 81 U/L (39-117); Anion Gap 12 (12-20); Aspartate Amino Transferase 21 U/L (5-31); Bilirubin Total 0.6 mg/dL (0.0-1.0); Blood Urea Nitrogen 16 mg/dL (9-16); Calcium 9.3 mg/dL (8.4-10.2); Carbon Dioxide 31 mmol/L (22-29); Chloride 100 mmol/L (96-108); Cholesterol 226 mg/dL; Estimated Glomerular Filt Rate > 60; Glucose Fasting 95 mg/dL (60-99); HDL Cholesterol 52 mg/dL; LDL Cholesterol Calculated 139 mg/dl; Potassium 4.8 mmol/L (3.3-5.1); Sodium 138 mmol/L (135-145); Total Protein 6.9 g/dL (6.5-8.0); Triglycerides 179 mg/dL
[2022-10-11 08:41] LABS: Bacteria Urine 4+ (None Seen); Hyaline Casts Urine 0-2 /LPF (0-2); UACC Culture Trigger YES
[2022-10-11 08:45] LABS: Free T4 (Free Thyroxine) 0.96 ng/dL (0.71-1.85); Thyroid Stimulating Hormone 3.27 uIU/mL (0.32-4.0); Vitamin D 25-OH Total 31.2 ng/mL (>30)
== END 2022-10-11 07:05 | disposition home or self-care (01) ==
LOC: HO.LAB 07:04
PROVIDERS: PCP Internal Medicine; Visit Provider Internal Medicine
DX: E03.9 Hypothyroidism, unspecified (principal); R73.01 Impaired fasting glucose; E55.9 Vitamin D deficiency, unspecified; E78.00 Pure hypercholesterolemia, unspecified; I10 Essential (primary) hypertension; R30.0 Dysuria
CPT/HCPCS: 36415; 80053; 80061; 81001; 82306; 83036; 84439; 84443; 85025; 87086; 87088; 87186

== ENCOUNTER 2022-11-09 08:01 | Outpatient (REF) | payer MEDICARE, OTHER, SELFPAY ==
--- NOTE | ~2022-11-09 | MM_ITS ---
EXAMINATION: BONE DENSITOMETRY CLINICAL INDICATION: Age-related osteoporosis without current pathological fracture. COMPARISON: Previous BD dated 11/07/2020 and baseline BD dated 09/05/2015. TECHNIQUE: Using a [employer] DXA System (software version: 13.1) manufactured by [employer], dual-energy x-ray absorptiometry was performed of the lumbar spine and left hip. The images are of good technical quality. Summary results are attached. FINDINGS: AP SPINE L1-L4: Current: BMD 0.901 g/cm2, Z-score -0.6, T-score -2.5, osteoporosis, 0.7% decrease from previous, 5.0% increase from baseline (<5% change is not significant). Prior: BMD 0.907 g/cm2. Baseline: BMD 0.858 g/cm2. LEFT FEMUR, NECK: Current: BMD 0.722 g/cm2, Z-score -0.2, T-score -2.3, osteopenia. Prior: BMD 0.682 g/cm2. Baseline: BMD 0.716 g/cm2. LEFT FEMUR, TOTAL: Current: BMD 0.817 g/cm2, Z-score 0.3, T-score -1.5, osteopenia, 4.1% increase from previous, 2.1% increase from baseline (<5% change is not significant). Prior: BMD 0.785 g/cm2. Baseline: BMD 0.800 g/cm2. IDENTIFIED RISK FACTORS: Osteoporosis. Menopause. HISTORY OF FRACTURE: None listed. MEDICATIONS: Calcium supplement or multivitamin. Vitamin D. Bisphosphonates. MM/XR DEXA axial skeleton IMPRESSION: 1. DIAGNOSIS: Osteoporosis based on the lowest T-score value of -2.5 in the lumbar spine applying World Health Organization criteria. 2. 10-YEAR FRACTURE RISK PREDICTION, FRAX: According to the guidelines, FRAX calculation should only be performed on patients in the osteopenia bone density category. Therefore, FRAX was not performed on this patient.? 3. Treatment Recommendations: NOF guidelines recommend consideration for treatment in postmenopausal women and men age 50 and older presenting with the following: -A hip or vertebral (clinical or morphometric) fracture. -T-score less than or equal to -2.5 at the femoral neck or spine after appropriate evaluation to exclude secondary causes. -Low bone mass at the hip or spine and a 10-year fracture probability by FRAX of greater than or equal to 3% for hip fracture or greater than or equal to 20% for major osteoporotic fracture based on the [place] adapted WHO algorithm. 4. Other Recommendations: All treatment decisions require clinical judgment and consideration of individual patient factors, including patient preferences, comorbidities, previous drug use, risk factors not captured in the FRAX model (e.g. frailty, falls, vitamin D deficiency, increased bone turnover, interval significant decline in bone density) and possible under or overestimation of fracture risk by FRAX. Additional medical evaluation for secondary cause of low bone mineral density may be appropriate. FUTURE SCAN RECOMMENDATION: People with diagnosed cases of osteoporosis or at high risk for fracture should have regular bone mineral density tests. For patients eligible for Medicare, routine testing is allowed once every 2 years. The testing frequency can be increased to one year for patients who have rapidly progressing disease, those who are receiving or discontinuing medical therapy to restore bone mass, or have additional risk factors.
== END 2022-11-09 08:02 | disposition home or self-care (01) ==
LOC: HO.MAMMO 08:01
PROVIDERS: PCP Internal Medicine; Visit Provider Internal Medicine Endocrinology, Diabetes & Metabolism
DX: Z13.820 Encounter for screening for osteoporosis (principal); M81.0 Age-related osteoporosis without current pathological fracture; Z78.0 Asymptomatic menopausal state
CPT/HCPCS: 77080

== ENCOUNTER 2023-01-31 07:01 | Outpatient (REF) | payer MEDICARE, OTHER, SELFPAY ==
[2023-01-31 08:16] LABS: Alanine Aminotransferase 18 U/L (0-31); Albumin Level 4.1 g/dL (3.5-5.0); Alkaline Phosphatase 64 U/L (39-117); Anion Gap 11 (12-20); Aspartate Amino Transferase 18 U/L (5-31); Bilirubin Total 0.8 mg/dL (0.0-1.0); Blood Urea Nitrogen 9 mg/dL (9-16); Calcium 9.3 mg/dL (8.4-10.2); Carbon Dioxide 31 mmol/L (22-29); Chloride 99 mmol/L (96-108); Cholesterol 200 mg/dL; Estimated Glomerular Filt Rate > 60; Glucose Fasting 96 mg/dL (60-99); HDL Cholesterol 46 mg/dL; LDL Cholesterol Calculated 103 mg/dl; Potassium 4.1 mmol/L (3.3-5.1); Sodium 137 mmol/L (135-145); Total Protein 6.8 g/dL (6.5-8.0); Triglycerides 259 mg/dL
[2023-01-31 08:34] LABS: Free T4 (Free Thyroxine) 1.02 ng/dL (0.71-1.85); Thyroid Stimulating Hormone 2.63 uIU/mL (0.32-4.0); Vitamin D 25-OH Total 31.8 ng/mL (>30)
[2023-01-31 09:20] LABS: Appearance Urine Clear; Color Urine Yellow; Glucose Urine UA Negative (Negative); Leukocyte Esterase Urine Large (3+) (Negative); Nitrite Urine Negative (Negative); PH 8.5 (5.0-9.0); Specific Gravity - Urine <= 1.005 (1.005-1.025); UMIC TRIGGER UACC YES; Urine Blood Small (1+) (Negative); Urine Ketones Negative (Negative); Urine Protein Negative (Neg-Trace)
[2023-01-31 09:36] LABS: Bacteria Urine 4+ (None Seen); Hyaline Casts Urine 0-2 /LPF (0-2); Squamous Epithelial Cell Urine 0-2 /HPF (0-2); UACC Culture Trigger YES
== END 2023-01-31 07:02 | disposition home or self-care (01) ==
LOC: HO.LAB 07:01
PROVIDERS: PCP Internal Medicine; Visit Provider Internal Medicine
DX: E78.00 Pure hypercholesterolemia, unspecified (principal); E03.9 Hypothyroidism, unspecified; E55.9 Vitamin D deficiency, unspecified; R30.0 Dysuria
CPT/HCPCS: 36415; 80053; 80061; 81001; 82306; 84439; 84443; 87086; 87088; 87186

== ENCOUNTER 2023-03-01 08:47 | Outpatient (AMB) | payer MEDICARE, OTHER, SELFPAY ==
[2023-03-01 08:49] VITALS: BP 138/82; PULSE 86; O2SAT 98; BMI 25.4
--- NOTE | 2023-03-01 08:49 | AM.OFFVISMDC ---
Intake Vital Signs 03/01/23 08:49 Height 5 ft 2 in Weight 139 lb BMI 25.4 BP 138/82 Blood Pressure Location Lt brachial Position Sitting Pulse 86 Pulse Source Pulse Oximeter Temp Source Skin Pulse Oximetry (%) 98 Oxygen Delivery Method Room Air Intake Visit Reasons: SAWV Intake Note: Patient is here for an Annual Wellness Visit. 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 Allergies risedronate sodium Adverse Reaction (Intermediate, Verified 03/01/23 09:16) muscle pain and dizziness Medication List - Last Reconciled 03/01/23 by UTE Correia atorvastatin 10 mg PO DAILY 90 days bupropion HCl 150 mg PO QAM 90 days hydroxyzine HCl 25 mg PO TID PRN 30 days ibandronate 150 mg PO .once a month 90 days levothyroxine 62.5 mcg (1/2 x 125 mcg) PO DAILY 30 days lisinopril-hydrochlorothiazide 20-25 mg 1 tab PO DAILY 90 days multivitamin 1 tab PO DAILY tizanidine 4 mg PO TID PRN 30 days Fall Risk Assessment Fall risk assessment: No Falls in past year Date Fall Risk Assessed: 03/01/23 HPI SAWV HPI Details Patient is a 77-year-old female who presents today for subsequent wellness visit.? Patient of Dr. Blanco. Today we discussed patient's need for pneumonia and tetanus vaccines, as well as mammogram.? Patient has declined mammogram, tetanus and pneumonia vaccines, she was educated on the importance of such preventative screenings.? Patient did have a negative Cologuard 01/2021.? Bone density screen was done in October of 2022 which showed osteoporosis. Dingess of care was reviewed with the patient and she was provided with a screening schedule.? End of life planning was discussed with the patient and she was provided with healthcare proxy and MOLST forms.?? PFS Medical History Anxiety Benign hematuria Exertional dyspnea Hyperlipidemia Hypertension Hypothyroidism Impaired fasting glucose Left-sided thoracic back pain Non-toxic multinodular goiter Osteoporosis Scoliosis of thoracic spine Thyroid nodule Surgical History No pertinent past surgical history Family History Father No problems noted. Mother Diabetes Social History Housing: House Alcohol intake: current Alcohol intake frequency: a few times a month Alcohol type: wine Patient Tobacco Use Status: Former Tobacco user Tobacco use type: Cigarette e-Cigarette/Vaping Use: Currently Using Second Hand Smoke Exposure: Yes service: No Current occupational status: retired Cognitive needs: No Hearing needs: No Vision needs: No Questionnaire Medicare Wellness Checkup [age] What gender do you identify with?: female During the past 4 weeks, how much have you been bothered by emotional problems such as feeling anxious, depressed, irritable, sad or downhearted, and blue?: not at all During the past 4 weeks, has your physical & emotional health limited your social activities with family, friends, neighbors, or groups?: not at all During the past 4 weeks, how much bodily pain have you generally had?: no pain During the past 4 weeks, was someone available to help you if you needed & wanted help?: yes, as much as I wanted During the past 4 weeks, what was the hardest physical activity you could do for at least 2 minutes?: very heavy Can you get to places out of walking distance without help? (For eg., can you travel alone on buses, taxis or drive your car?): Yes Can you go shopping for groceries or clothes without someone's help?: Yes Can you prepare your own meals?: Yes Can you do your housework without help?: Yes Because of any health problems, do you need the help of another person with your personal care needs such as eating, bathing, dressing or getting around the house?: No Can you handle your own money without help?: Yes During the past 4 weeks, how would you rate your health in general?: excellent During the past 4 weeks how have things been going for you?: very well; could hardly better Are you having difficulties driving your car?: no Do you always fasten your seat belt when you are in a car?: yes, usually During past 4 weeks, have you been bothered by the following: never: Falling or dizzy when standing up, Sexual problems?, Trouble eating well?, Teeth or denture problems?, Problems using the telephone? and Tiredness or fatigue? Have you fallen 2 or more times in the past year?: No Are you afraid of falling?: No Are you a smoker?: no During the past 4 weeks, how many drinks of wine, beer, or other alcoholic beverages did you have?: 2-5 drinks per week Do you exercise for about 20 minutes 3 or more times a week?: yes, most of the time Have you been given information to help with the following?: yes: Hazards in your house that might hurt you? and yes: Keeping track of your medications? How often do you have trouble taking medicines the way you have been told to take them?: I do not have to take medicine How confident are you that you can control & manage most of your health problems?: very confident What is your race?: White Mini Mental State Exam (MMSE) Orientation What is the (year) (season) (date) (day) (month)?: year, season, date, day and month Score Score: 5 Activity of Daily Living Bathing - sponge bath, tub bath or shower: receives no assistance (gets in/out by self, if usual bathing means Dressing - getting clothes from closets & drawers, including inner/outer garments & fasteners.: gets clothes & gets completely dressed without help Toileting - going to the 'toilet room' for urine/bowel elimination & cleaning self/arranging clothes: goes to toilet room, cleans self, arranges clothes without help Transfer: moves in & out of bed and chair without help (may use support object) Continence: controls urination/bowel movements completely by self Feeding: feeds self without help Total Score: 0 Information obtained from: patient Using telephone: independent Traveling: independent Shopping: independent Preparing meals: independent Housework: independent Taking medicine: independent Managing money: independent PHQ-9 Over the last 2 weeks, how often have you been bothered by any of the following problems? 1. Little interest or pleasure in doing things: not at all 2. Feeling down, depressed, or hopeless: not at all 3. Trouble falling or staying asleep, or sleeping too much: not at all 4. Feeling tired or having little energy: not at all 5. Poor appetite or overeating: not at all 6. Feeling bad about yourself - or that you are a failure or have let yourself or your family down: not at all 7. Trouble concentrating on things, such as reading the newspaper or watching television: not at all 8. Moving or speaking so slowly that other people could have noticed. Or the opposite - being so fidgety or restless that you have been moving around a lot more than usual: not at all 9. Thoughts that you would be better off or of hurting yourself in some way: not at all Total score: 0 Depression Screening Interpretation: Negative 82365 - PHQ-9 Billing: Yes Source: Developed by Drs. Balwinder Crane, Babita Gaston, Adalid Hawthorne and colleagues, with an educational jaylen from [employer]. POLLY-7 AMB Questionnaire POLLY-7 Date POLLY - 7 assessed: 03/01/23 Feeling nervous, anxious, or on edge: 0 = Not at all Not being able to stop or control worryin = Not at all Worrying too much about different things: 0 = Not at all Trouble relaxin = Not at all Being so restless that it is hard to sit still: 0 = Not at all Becoming easily annoyed or irritable: 0 = Not at all Feeling afraid as if something awful might happen: 0 = Not at all Total POLLY-7 score (0-4 normal; 5-9 mild; 10-14 moderate; 15-21 severe): 0 Source: Developed by Drs. Balwinder Crane, Babita Gaston, Adalid Hawthorne and colleagues, with an educational jaylen from [employer]. POLLY-7 Assessment Billing PLOLY-7 Assessment Tool: POLLY-7 Assessment 81194 AUDIT C Alcohol Use Questionnaire (AUDIT-C) 1. How often do you have a drink containing alcohol?: Never 3. How often do you have six or more drinks on one occasion?: Never Total Score: 0 Score Reviewed/Action Taken: No Thrive Questionnaire Date Thrive assessed: 02/15/23 I am a: Patient What is your living situation today?: I have a steady place to live Within the past 12 months, did the food you bought not last and you didn't have the money to get more?: Never true Within the past 12 months, did you worry whether your food would run out before you got money to buy more?: Never true Do you have trouble paying for medicines?: No Do you have trouble getting transportation to medical appointments?: No Do you have trouble paying your heating and electricity bill?: No Do you have trouble taking care of your child, family member or friend?: No Do you have trouble with day-to-day activities such as bathing, preparing meals, shopping, managing finances, etc.?: No Are you currently unemployed and looking for a job?: No Are you interested in more education?: No Currently or been in a relationship where the following occur: no concerns reported Physical Exam Vital Signs: Last Vital Signs Pulse 86 03/01/23 08:49 BP 138/82 03/01/23 08:49 Pulse Ox 98 03/01/23 08:49 Oxygen Delivery Method Room Air 03/01/23 08:49 BMI result Body Mass Index 25.4 Const General: cooperative and no acute distress Orientation/consciousness: patient oriented x3 HEENT Other: Whisper test: pass Neuro Other: Balance: Normal Get up and walk: able to Romberg: negative Tandem gait: able to General: patient oriented x3 Assessment & Plan Assessment & Plan (1) Anxiety: Code(s): F41.9 - Anxiety disorder, unspecified Plan: Continue hydroxyzine 25 mg t.i.d. (2) Non-toxic multinodular goiter: Code(s): E04.2 - Nontoxic multinodular goiter Plan: Continue to follow-up with endocrinology Dr. Rueda as scheduled (3) Impaired fasting glucose: Code(s): R73.01 - Impaired fasting glucose Plan: Recent fasting glucose 96 01/2023 Low-carbohydrate diet (4) Osteoporosis: Code(s): M81.0 - Age-related osteoporosis without current pathological fracture Qualifiers: Osteoporosis type: age-related Presence of current pathological fracture: without current pathological fracture Qualified Code(s): M81.0 - Age-related osteoporosis without current pathological fracture Plan: Continue to follow-up with endocrinology as scheduled, on ibandronate monthly (5) Hypothyroidism: Code(s): E03.9 - Hypothyroidism, unspecified Qualifiers: Hypothyroidism type: postablative Qualified Code(s): E89.0 - Postprocedural hypothyroidism Plan: Levothyroxine 62.5 mg daily Continue to follow-up with endocrinology (6) Hyperlipidemia: Code(s): E78.5 - Hyperlipidemia, unspecified Qualifiers: Hyperlipidemia type: pure hypercholesterolemia Qualified Code(s): E78.00 - Pure hypercholesterolemia, unspecified Plan: Atorvastatin 10 mg daily Low-cholesterol diet (7) Hypertension: Code(s): I10 - Essential (primary) hypertension Qualifiers: Hypertension type: essential hypertension Qualified Code(s): I10 - Essential (primary) hypertension Plan: Continue current treatment Low-sodium diet (8) Adult general medical exam: Code(s): Z00.00 - Encounter for general adult medical examination without abnormal findings Quality Reporting (2019) Fall Risk Screening ([facility] 139) Last assessed Fall Risk: 03/01/23 Fall risk assessment: No Falls in past year Depression/Bipolar (159/160/161/177) PHQ-9: Total score: 0 Coding Level of Care Code Medicare Subsequent (G0439) Diagnoses Anxiety F41.9 Non-toxic multinodular goiter E04.2 Impaired fasting glucose R73.01 Osteoporosis M81.0 Osteoporosis type: age-related Presence of current pathological fracture: without current pathological fracture Hypothyroidism E89.0 Hypothyroidism type: postablative Hyperlipidemia E78.00 Hyperlipidemia type: pure hypercholesterolemia Hypertension I10 Hypertension type: essential hypertension Adult general medical exam Z00.00 CPT Codes Advance Care Planning - Time spent: 1-15 minutes, not on file ([id number]) Additional Codes POLLY-7 Assessment Billing - POLLY-7 Assessment Tool: POLLY-7 Assessment [id number] ([id number]) Advance Care Planning Date of discussion: 03/01/23 Who was present: pt and refrigerator repair technician Forms completed: None Time spent: 1-15 minutes, not on file Actual minutes spent: 2 Did not discuss due to Cultural/Spiritual beliefs: No
== END 2023-03-01 09:27 | disposition home or self-care (01) ==
PROVIDERS: Visit Provider Nurse Practitioner Family
DX: Z00.00 Encounter for general adult medical examination without abnormal findings (principal); F41.9 Anxiety disorder, unspecified; E04.2 Nontoxic multinodular goiter; Z71.89 Other specified counseling; I10 Essential (primary) hypertension; R73.01 Impaired fasting glucose; M81.0 Age-related osteoporosis without current pathological fracture; E89.0 Postprocedural hypothyroidism; E78.00 Pure hypercholesterolemia, unspecified
CPT/HCPCS: 1124F; G0439

== ENCOUNTER 2023-04-12 07:51 | Outpatient (AMB) | payer MEDICARE, OTHER, SELFPAY ==
--- NOTE | 2023-04-12 07:53 | MHC.OFFVIS ---
Intake Vital Signs 04/12/23 07:56 Height 5 ft 2 in Weight 140 lb 3.424 oz BMI 25.6 BP 134/72 Blood Pressure Location Lt brachial Position Sitting Pulse 62 Pulse Source Pulse Oximeter Intake Visit Reasons: f/u hypothyroidism, MNG, osteoporosis Intake Note: Patient present for Hypothyroidism/ MNG/ and Osteoporosis follow up visit. Plumbing Technician Required: No Accompanied by: Self / Same As Patient Allergies risedronate sodium Adverse Reaction (Intermediate, Verified 04/12/23 07:59) muscle pain and dizziness Medication List - Last Reconciled 04/12/23 by Balwinder Rueda MD atorvastatin 10 mg PO DAILY 90 days bupropion HCl 150 mg PO QAM 90 days hydroxyzine HCl 25 mg PO TID PRN 30 days ibandronate 150 mg PO .once a month 90 days levothyroxine 62.5 mcg (1/2 x 125 mcg) PO DAILY 30 days lisinopril-hydrochlorothiazide 20-25 mg 1 tab PO DAILY 90 days multivitamin 1 tab PO DAILY tizanidine 4 mg PO TID PRN 30 days HPI HPI Comments History of Present Illness Details 77 yo female today for fup visit, last seen on 11/03/2020 for hypothyroidism and nodules evaluation. . She had fine-needle aspiration on 04/05/2019 of left mid and left lower pole nodules. Left mid pole nodule cytology was consistent with benign follicular nodule, [place] category 2. Left lower pole nodule was nondiagnostic. We new that we did not have enough follicular cells the day of the procedure. Patient was very uncomfortable despite using lidocaine for anesthesia. She did not allow me to continue doing passes. She is on Boniva for osteoporosis. She has a good method of administration. On Boniva for 3 yrs. Recent DEXA showed borderline osteoporosis with improvement in bone density since baseline She had benign FNA of left nodule on 03/09/18, consistent with follicular nodule. She is currently on 125 mg 1/2 tab every day, she is 100 % adherent, she has a good method of administrations. She has a PMH of a toxic multinodular goiter, she was initially treated with right hemithyroidectomy she does not remember the date, she did not became euthyroid after hemithyroidectomy, she was treated with [place], she become hypothyroid. She still has nodules on left thyroid, she had last FNA few years. Benign as per patient. She has Other PMH of HTN and dyslipidemia, osteoporosis, she did no tolerated bisphosphonates , has not been on treatment. Denies cold or heat intolerance, her weight is stable. She denies diarrhea, constipation, insomnia, fatigue, dry skin, denies dysphagia, dyspnea, dysphonia, tremors, palpitations, irritability, anxiety. 10/04/17 DEXA scan AP SPINE L1-L4: Current: BMD 0.794 g/cm2, Z-score -1.6, T-score -3.2, osteoporosis, 6.0% decrease from baseline (<5% change is not significant). Baseline: BMD 0.845 g/cm2. LEFT FEMUR, NECK: Current: BMD 0.647 g/cm2, Z-score -1.1, T-score -2.8, osteoporosis. Baseline: BMD 0.716 g/cm2. LEFT FEMUR, TOTAL: Current: BMD 0.793 g/cm2, Z-score -0.2, T-score -1.7, osteopenia, 0.9% decrease from baseline (<5% change is not significant). Baseline: BMD 0.800 g/cm2. 09/29/2020 US THYROID Right Thyroid Lobe: Surgically absent. Left Thyroid Lobe: 4.6 x 2.5 x 2.3 cm, volume 14.2 mL. Previously 4.7 x 2.8 x 2.3 cm, volume 15.8 mL. Parenchyma: The gland echotexture is heterogeneous. Thyroid vascularity is increased. Isthmus: Surgically absent. Estimated total number of nodules greater than or equal to 1 cm: 1. Doctor Of Naturopathic Medicine nodules are described as follows: 1. Location: Left mid. Size: 3.0 x 2.3 x 2.3 cm, volume 8.0 mL. Previously: 3.2 x 2.5 x 2.4 cm, volume 10.4 mL. Nodule characteristics: Composition: Solid/almost completely solid (2). Echogenicity: Hypoechoic (2). Shape: Not taller than wide (0). Margins: Smooth (0). Echogenic Foci: Punctate echogenic foci (3). ACR TI-RADS total points: 7 ACR TI-RADS category: 5 Significant change in size (>/= 20% in 2 dimensions and minimal increase of 2 mm): 7 Change in features: None Change in ACR TI-RADS risk category: 5 2. Location: Left inferior. Size: 0.8 x 0.8 x 0.9 cm, volume 0.3 mL. Previously: 1.2 x 1.0 x 1.1 cm, volume 0.7 mL. Nodule characteristics: Composition: Cannot be determined (2). Echogenicity: Cannot be determined (1). Shape: Not taller than wide (0). Margins: Smooth (0). Echogenic Foci: Macrocalcifications (1). ACR TI-RADS total points: 4 ACR TI-RADS category: 4 Significant change in size (>/= 20% in 2 dimensions and minimal increase of 2 mm): Slightly improved in size. Change in features: None Change in ACR TI-RADS risk category: None 3. Location: Left inferior. Size: 0.6 x 0.5 x 0.7 cm, volume 0.1 mL. Previously: Not documented on the prior study. cm. Nodule characteristics: Composition: Cannot be determined (2). Echogenicity: Cannot be determined (1). Shape: Not taller than wide (0). Margins: Smooth (0). Echogenic Foci: None (0). ACR TI-RADS total points: 3 ACR TI-RADS category: 3 Significant change in size (>/= 20% in 2 dimensions and minimal increase of 2 mm): None Change in features: None. Change in ACR TI-RADS risk category: None. NODES: No lymphadenopathy is seen in the tissue surrounding the thyroid gland. Laboratory Tests 10/13/20 10/17/20 07:40 07:28 Creatinine 0.66 Estimated GFR > 60 Calcium 9.3 Albumin 4.3 25-OH Vitamin D To radha 33.2 TSH 1.80 Free T4 1.11 [facility] Medical History Anxiety Benign hematuria Exertional dyspnea Hyperlipidemia Hypertension Hypothyroidism Impaired fasting glucose Left-sided thoracic back pain Non-toxic multinodular goiter Osteoporosis Scoliosis of thoracic spine Thyroid nodule Surgical History No pertinent past surgical history Family History Father No problems noted. Mother Diabetes Social History Housing: House Alcohol intake: current Alcohol intake frequency: a few times a month Alcohol type: wine Patient Tobacco Use Status: Former Tobacco user Tobacco use type: Cigarette e-Cigarette/Vaping Use: Currently Using Second Hand Smoke Exposure: Yes service: No Current occupational status: retired Cognitive needs: No Hearing needs: No Vision needs: No Physical Exam Vital Signs: Last Vital Signs Pulse 62 04/12/23 07:56 BP 134/72 04/12/23 07:56 BMI result Body Mass Index 25.6 Const Other: There is a scar status post right lobectomy . There are no thyroid nodules palpated in the left lobe. There is no cervical adenopathy palpated. There is no tenderness on palpation of the vertebral spine Assessment & Plan Assessment & Plan (1) Osteoporosis: Code(s): M81.0 - Age-related osteoporosis without current pathological fracture Qualifiers: Osteoporosis type: age-related Presence of current pathological fracture: without current pathological fracture Qualified Code(s): M81.0 - Age-related osteoporosis without current pathological fracture Plan: Had negative partial secondary workup. Is currently on ibandronate 150 mg Q monthly. She has been on Ibandrnate for 3 yrs . Repeat DEXA showed borderline osteoporosis with improvement baseline. Secondary workup is negative Plan is to talk to the patient about possible drug holiday and will follow bone turnover markers for possible re-initiation in future (2) Thyroid nodule: Code(s): E04.1 - Nontoxic single thyroid nodule Plan: Status post FNA of left midpole nodule with benign cytology in the past. Repeat thyroid ultrasound showed stability in the size of the nodules Will repeat thyroid ultrasound in 2-3 years time (3) Hypothyroidism: Code(s): E03.9 - Hypothyroidism, unspecified Qualifiers: Hypothyroidism type: postablative Qualified Code(s): E89.0 - Postprocedural hypothyroidism Plan: Clinically and biochemically euthyroid on 62.5 mcg of levothyroxine. Plan is to continue the current therapy. Medications: Discontinued ibandronate Discontinued Reason: Doctor's Order 150 mg PO .once a month 3 tabs 3RF 90 days M81.0 - Age-related osteoporosis without current pathological fracture Coding Level of Care Code Est Pt Level 3 (56009) Diagnoses Osteoporosis M81.0 Osteoporosis type: age-related Presence of current pathological fracture: without current pathological fracture Thyroid nodule E04.1 Hypothyroidism E89.0 Hypothyroidism type: postablative
[2023-04-12 07:56] VITALS: BP 134/72; PULSE 62; BMI 25.6
== END 2023-04-12 09:19 | disposition home or self-care (01) ==
PROVIDERS: PCP Internal Medicine; Visit Provider Internal Medicine Endocrinology, Diabetes & Metabolism
DX: M81.0 Age-related osteoporosis without current pathological fracture (principal); E04.1 Nontoxic single thyroid nodule; E89.0 Postprocedural hypothyroidism
CPT/HCPCS: 99213

== ENCOUNTER → 2023-04-12 07:51 | Outpatient (BNVA) | payer MEDICARE, OTHER, SELFPAY | PROVIDERS: Visit Provider Internal Medicine Endocrinology, Diabetes & Metabolism | DX: M81.0 Age-related osteoporosis without current pathological fracture (principal); E89.0 Postprocedural hypothyroidism; E04.1 Nontoxic single thyroid nodule | CPT/HCPCS: 99212 ==

== ENCOUNTER 2023-06-14 07:12 | Outpatient (REF) | payer MEDICARE, OTHER, SELFPAY ==
[2023-06-14 07:27] LABS: MANUAL DIFF FLAG NO
[2023-06-14 08:00] LABS: Basophils Percent Auto 0.4 % (0-2); Eosinophils Absolute Auto 0.1 X10*3/uL (0.0-0.4); Eosinophils Percent Auto 1.5 % (0-4); Hematocrit 45.3 % (37.0-47.0); Hemoglobin 15.4 g/dl (12.0-16.0); Imm Gran Abs Auto 0.01 X10*3/uL (0.00-0.03); Imm Gran Pct Auto 0.1 % (0.0-0.4); Lymphocytes Absolute Auto 2.1 X10*3/uL (1.2-4.9); Lymphocytes Percent Auto 30.1 % (20-40); Mean Corpuscular Volume 91.3 fL (80.0-98.0); Mean Platelet Volume 9.5 fL (9.4-12.3); Monocytes Absolute Auto 0.6 X10*3/uL (0.1-1.2); Monocytes Percent Auto 8.9 % (2-11); Platelet Count 334 X10*3/uL (160-400); Red Blood Count 4.96 X10*6/uL (4.20-5.50); Red Cell Distribution Width 11.6 % (11.0-16.0); White Blood Count 6.9 X10*3/uL (4.8-10.8)
[2023-06-14 08:07] LABS: Estimated Average Glucose 103 mg/dL; Hemoglobin A1c % 5.2 % (<6.0)
[2023-06-14 08:20] LABS: Alanine Aminotransferase 25 U/L (0-31); Alkaline Phosphatase 76 U/L (39-117); Anion Gap 15 (12-20); Aspartate Amino Transferase 23 U/L (5-31); Bilirubin Total 0.5 mg/dL (0.0-1.0); Blood Urea Nitrogen 9 mg/dL (9-16); Calcium 9.4 mg/dL (8.4-10.2); Carbon Dioxide 28 mmol/L (22-29); Chloride 101 mmol/L (96-108); Cholesterol 202 mg/dL (<200); Estimated Glomerular Filt Rate > 60; Glucose Fasting 93 mg/dL (60-99); HDL Cholesterol 49 mg/dL (>40); LDL Cholesterol Calculated 116 mg/dL (<100); Potassium 3.5 mmol/L (3.3-5.1); Sodium 140 mmol/L (135-145); Total Protein 7.2 g/dL (6.5-8.0); Triglycerides 185 mg/dL (<150)
[2023-06-14 08:35] LABS: Free T4 (Free Thyroxine) 0.99 ng/dL (0.71-1.85); Thyroid Stimulating Hormone 3.64 uIU/mL (0.32-4.0); Vitamin D 25-OH Total 43.2 ng/mL (>30)
[2023-06-14 08:37] LABS: Appearance Urine Cloudy; Color Urine Yellow; Glucose Urine UA Negative (Negative); Leukocyte Esterase Urine Large (3+) (Negative); Nitrite Urine Negative (Negative); UMIC TRIGGER UACC YES; Urine Blood Small (1+) (Negative); Urine Ketones Negative (Negative); Urine Protein Negative (Neg-Trace)
[2023-06-14 08:43] LABS: Bacteria Urine 4+ (None Seen); Hyaline Casts Urine 0-2 /LPF (0-2); UACC Culture Trigger YES; WBC Urine >50 /HPF (0-5)
== END 2023-06-14 07:13 | disposition home or self-care (01) ==
LOC: HO.LAB 07:12
PROVIDERS: PCP Internal Medicine; Visit Provider Internal Medicine
DX: I10 Essential (primary) hypertension (principal); E78.00 Pure hypercholesterolemia, unspecified; E03.9 Hypothyroidism, unspecified; E55.9 Vitamin D deficiency, unspecified; R73.9 Hyperglycemia, unspecified; R30.0 Dysuria
CPT/HCPCS: 36415; 80053; 80061; 81001; 82306; 83036; 84439; 84443; 85025; 87086; 87088; 87186

== ENCOUNTER 2023-06-17 09:45 | Outpatient (AMB) | payer MEDICARE, OTHER, SELFPAY ==
[2023-06-17 09:50] VITALS: BP 182/100; PULSE 88; RESP 16; O2SAT 95; BMI 25.4
--- NOTE | 2023-06-17 09:50 | A.OFFPC_ITS ---
Vital Signs 06/17/23 09:50 06/17/23 10:36 Height 5 ft 2 in Weight 139 lb 2 oz BMI 25.4 BP 182/100 H 178/100 H Blood Pressure Location Lt brachial Lt brachial Position Sitting Sitting Respiration 16 Pulse 88 Pulse Source Pulse Oximeter Pulse Oximetry (%) 95 Oxygen Delivery Method Room Air Intake Visit Reasons: hyperlipidemia, hypothyroidism, osteoporosis Intake Note: Patient is here to follow up on Osteoporosis, hypothyroidism and HLD. Wardrobe Custodian Required: No Accompanied by: Self / Same As Patient Allergies risedronate sodium Adverse Reaction (Intermediate, Verified 06/17/23 10:19) muscle pain and dizziness Medication List - Last Reconciled 06/17/23 by Edis Blanco MD atorvastatin 10 mg PO DAILY 90 days bupropion HCl 150 mg PO QAM 90 days hydroxyzine HCl 25 mg PO TID PRN 30 days levothyroxine 62.5 mcg (1/2 x 125 mcg) PO DAILY 30 days lisinopril-hydrochlorothiazide 20-25 mg 1 tab PO DAILY 90 days multivitamin 1 tab PO DAILY tizanidine 4 mg PO TID PRN 30 days Tobacco use date assessed: 02/15/23 Fall risk assessment: No Falls in past year Last assessed Fall Risk: 06/17/23 Dental Screening Dental Screen Date: 06/17/23 Did you have a dental visit in the last 12 months?: No Did you have a dental problem in the last 6 months where you did not have access to dental care?: No Was dental information given to patient?: Patient declined (Pt has dentures) HPI hyperlipidemia, hypothyroidism, osteoporosis HPI Details Patient comes in today for her follow up visit States that she feels okay She denies any headaches or dizziness Denies any chest pains but states that she has noticed some OLSEN lately Notes that she would have to stop and rest for a couple of minutes to catch her breath nowadays when she climbs up a flight of stairs No nausea/vomiting, no abdominal pain No change in bowel habits noted Needs her Tizanidine Rx refilled - still has recurrent low back pain due to her scoliosis Had her follow up labs done a few days ago - to discuss her results [facility] Medical History Anxiety Exertional dyspnea Left-sided thoracic back pain Non-toxic multinodular goiter Impaired fasting glucose Osteoporosis Scoliosis of thoracic spine Benign hematuria Thyroid nodule Hypothyroidism Hyperlipidemia Hypertension Surgical History History of cosmetic plastic surgery No pertinent past surgical history Family History Father No problems noted. Mother Diabetes Social History Housing: House Alcohol intake: current Alcohol intake frequency: a few times a month Alcohol type: wine Patient Tobacco Use Status: Former Tobacco user Tobacco use type: Cigarette e-Cigarette/Vaping Use: Currently Using Second Hand Smoke Exposure: Yes service: No Current occupational status: retired Cognitive needs: No Hearing needs: No Vision needs: No Questionnaire PHQ-9 Over the last 2 weeks, how often have you been bothered by any of the following problems? Depression Screening Interpretation: Negative Depression Screening Done: Yes Source: Developed by Drs. Balwinder Crane, Babita Gaston, Adalid Hawthorne and colleagues, with an educational jaylen from [employer]. Thrive Questionnaire Date Thrive assessed: 02/15/23 Currently or been in a relationship where the following occur: no concerns reported POLLY-7 AMB Questionnaire POLLY-7 Date POLLY - 7 assessed: 03/01/23 Source: Developed by Drs. Balwinder Crane, Adalid Devlin and colleagues, with an educational jaylen from [employer]. Review of Systems Const Denies chills, Reports fatigue, Denies fever(s) and Denies headache(s) ENT Denies dysphagia, Denies dizziness, Denies otalgia, Denies headache(s), Denies neck pain, Denies odynophagia and Denies sore throat Card Denies chest pain, Denies palpitations and Reports dyspnea on exertion (see HPI) Resp Denies chest congestion, Denies cough, Reports dyspnea on exertion (see HPI) and Denies wheezing GI Denies abdominal pain, Denies constipation, Denies dysphagia, Denies heartburn, Denies diarrhea, Denies nausea, Denies odynophagia and Denies vomiting Denies difficulty voiding and Denies nocturia Musc Reports back pain (over the left thoracic area just under the scapula - recurrent) and Denies neck pain Skin/Breast Denies rash Neuro Denies dizziness and Denies headache(s) Psych Reports anxiety (controlled on Rx) Endo Reports fatigue and Denies palpitations Aller/Immun Denies wheezing Physical exam (Primary Care) Vital Signs: Last Vital Signs Pulse 88 06/17/23 09:50 Resp 16 06/17/23 09:50 BP 182/100 H 06/17/23 09:50 Pulse Ox 95 06/17/23 09:50 Oxygen Delivery Method Room Air 06/17/23 09:50 BMI result Body Mass Index 25.4 Tobacco/Smoking Status: Tobacco use Status Tobacco use date assessed 02/15/23 06/17/23 09:56 Patient Tobacco Use Status Former Tobacco user 06/17/23 09:56 Tobacco use type Cigarette 06/17/23 09:56 e-Cigarette/Vaping Use Currently Using 06/17/23 09:56 Depression Screening Interpretation: Negative Thrive Assessment: Date of Thrive Assessment Date Thrive assessed 02/15/23 06/17/23 09:56 Currently or been in a relationship where the following occur: no concerns reported Const General: no acute distress and alert HENMT Ears: TM's normal bilaterally and EAC's normal Throat: Yes posterior oropharynx normal and Yes tonsils normal (no TP congestion noted) Neck Neck: Yes no lymphadenopathy and Yes supple Resp Auscultation: clear to auscultation bilaterally, no rales and no wheezes Cardio Rate: regular rate Rhythm: regular rhythm Heart sounds: no murmurs GI Palpation (GI): Soft to palpation and nontender Auscultation: normal bowel sounds Back/Spine/Pelvis Thoracic/Lumbar Spine: paraspinal muscle tenderness on the left in the mid thoracic (just under the left scapula, mild) and Thoracic/lumbar scoliosis Skin Rashes: no rashes Extrem General: Yes no clubbing, cyanosis or edema Office Procedures Flu Questionnaire Does the patient have a severe egg allergy?: No Does the patient have severe life threatening allergies?: No Does the patient have a fever or illness today?: No Has the patient ever had Guillain-[place] Syndrome?: No Has the patient ever had any past reaction to a flu shot?: No Immunizations flu vacc [id number] 6mos up(PF) 60 mcg(15 mcgx4)/0.5 mL IM syringe Performing Provider: Edis Blanco MD [facility] Administered by: DENNIS Tracey on 06/17/23 10:09 Dose Route Admin Location Dispensed Lot Number Expiration Date NDC Contracting Executive 0.5 mL IM Left Deltoid 0.5 mL [id number] 02/19/24 [id number] [employer] VIS Given Date VIS Provided VIS Publication Date 06/17/23 Single Vaccine 21 Eligibility Eligibility Date Funding Source Not [facility] Eligible 06/17/23 Private Results Reviewed Results Reviewed: Laboratory Tests 06/14/23 06/14/23 06/14/23 07:17 07:17 07:21 WBC 6.9 Hgb 15.4 Hct 45.3 Plt Count 334 Sodium 140 Potassium 3.5 Creatinine 0.64 Estimated GFR > 60 Fasting Glucose 93 Hemoglobin A1c % 5.2 Calcium 9.4 AST ALT 25 Triglycerides 185 H Cholesterol 202 H LDL Cholesterol, Calc 116 H HDL Cholesterol 49 25-OH Vitamin D Total 43.2 TSH 3.64 Free T4 0.99 Ur Specific [place] 1.010 Urine Protein Negative Urine Glucose (UA) Negative Urine Blood Small (1+) H 06/14/23 07:21 WBC Hgb Hct Plt Count Sodium Potassium Creatinine Estimated GFR Fasting Glucose Hemoglobin A1c % Calcium AST 23 ALT Triglycerides Cholesterol LDL Cholesterol, Calc HDL Cholesterol 25-OH Vitamin D Total TSH Free T4 Ur Specific [place] Urine Protein Urine Glucose (UA) Urine Blood Assessment and Plan Assessment & Plan (1) Hypertension: Code(s): I10 - Essential (primary) hypertension Qualifiers: Hypertension type: essential hypertension Qualified Code(s): I10 - Essential (primary) hypertension Plan: Reinforced low sodium diet - goal is systolic BP of at least 130 to 140 mm or less Advised that her blood pressure is significantly elevated today, even after we rechecked it Patient admits that she started using salt in her food again lately and is going to stop using them [facility] Continue Lisinopril-HCT 20-25 mg QD for now Patient is again reminded to continue monitoring her blood pressure regularly and is advised to call us back IF her systolic BP remains consistently >140 mm - discussed that we may then need to make some changes or adjustments to her BP Rx Will also send her in Rx for a blood pressure monitor so she can check and monitor her BP easily (2) Hyperlipidemia: Code(s): E78.5 - Hyperlipidemia, unspecified Qualifiers: Hyperlipidemia type: pure hypercholesterolemia Qualified Code(s): E78.00 - Pure hypercholesterolemia, unspecified Plan: Results of her labs done a few days ago reviewed and discussed with patient - advised that her LDL cholesterol has increased from previous Reinforced low cholesterol diet Continue Atorvastatin 10 mg QD for now - patient still prefers not to have her dose increased or adjusted Will recheck her labs and fasting lipids in 4 months for follow-up (3) Hypothyroidism: Code(s): E03.9 - Hypothyroidism, unspecified Qualifiers: Hypothyroidism type: postablative Qualified Code(s): E89.0 - Postprocedural hypothyroidism Plan: Her TFTs remained normal on her recent labs Continue Levothyroxine 125 mcg 1/2 tablet QD Follow up with endocrinology as scheduled (4) Thyroid nodule: Code(s): E04.1 - Nontoxic single thyroid nodule Plan: Thyroid biopsy done by Dr. Berry in 2019 came back benign -? benign follicular nodule Follow-up sonogram done last year showed stable thyroid nodules with no significant change from previous - recommend continuing surveillance Follow-up with endocrinology as scheduled - is now following up with Dr. Rueda (5) Exertional dyspnea: Code(s): R06.00 - Dyspnea, unspecified Plan: Patient is reporting experiencing exertional dyspnea lately (see HPI), especially noticeable when she climbs up a flight of stairs She last had chest x-rays done back in 2019, which showed no acute pulmonary findings and (+) tortuous and calcified aorta but no acute changes in the cardiomediastinal silhouette from chext x-rays in 2018 and 2008; (+) severe scoliotic curvature of the spine is seen Advised that her breathing may be getting compromised by her scoliosis especially if her scoliosis is getting worse and it is starting to compress on her lungs, effectivel decreasing her total lung volume Advised to call [facility] if she feels that her breathing is getting worse as we may need to recheck her chest x-rays but also consider getting an echocardiogram to assess her cardiac chambers as well as her cardiac valves then (6) Impaired fasting glucose: Code(s): R73.01 - Impaired fasting glucose Plan: Fasting glucose is again normal on her recent labs; HgbA1c was also normal at 5.2% when checked a few days ago Reinforced low calorie diet/exercise as tolerated (7) Osteoporosis: Code(s): M81.0 - Age-related osteoporosis without current pathological fracture Qualifiers: Osteoporosis type: age-related Presence of current pathological fracture: without current pathological fracture Qualified Code(s): M81.0 - Age- related osteoporosis without current pathological fracture Plan: Repeat BMD done on 11/07/2020 showed (+) osteoporosis with lowest T-score value of -2.6 in the femoral neck Will send her for repeat BMD for follow up Continue Ibandronate 150 mg Q month - was unable to tolerate Risedronate in the past Continue OTC calcium and Vitamin-D supplements daily Follow up with endocrinology as scheduled (8) Benign hematuria: Code(s): N02.9 - Recurrent and persistent hematuria with unspecified morphologic changes Plan: Urinalysis done a couple of weeks ago still showed 1 + blood (chronic) - patient continues to deny any acute urinary symptoms Will continue to monitor this regularly (9) Scoliosis of thoracic spine: Code(s): M41.9 - Scoliosis, unspecified Qualifiers: Scoliosis type: unspecified scoliosis Qualified Code(s): M41.9 - Scoliosis, unspecified Plan: Still has occasional low back pain, which patient states are mostly manageable Continue Tizanidine 4 mg TID PRN - Rx refilled (10) Anxiety: Code(s): F41.9 - Anxiety disorder, unspecified Plan: Better controlled on Rx Continue Bupropion XL 150 mg Q AM and Hydroxyzine 25 mg TID PRN Plan Follow up in 4 months Orders: Orders Influenza [id number] Immunization Today Z23 - Encounter for immunization Lipid Panel 4 Months E78.00 - Pure hypercholesterolemia, unspecified Free T4 (Free Thyroxine) 4 Months E03.9 - Hypothyroidism, unspecified Complete Blood Count Auto Diff 4 Months I10 - Essential (primary) hypertension Comprehensive [place]. Panel Fast 4 Months E78.00 - Pure hypercholesterolemia, unspecified Thyroid Stimulating Hormone 4 Months E03.9 - Hypothyroidism, unspecified UA CC w/rflx Micro + Cult 4 Months R30.0 - Dysuria Vitamin D 25-OH Total 4 Months E55.9 - Vitamin D deficiency, unspecified Hemoglobin A1c 4 Months R73.01 - Impaired fasting glucose Medications: New blood pressure monitor As directed 1 ea 0RF I10 - Essential (primary) hypertension Refilled tizanidine 4 mg PO TID 30 days PRN 90 tabs 1RF muscle spasticity M54.6 - Pain in thoracic spine Coding Level of Care Code Est Pt Level 4 (91022) Diagnoses Essential hypertension I10 Hypertension type: essential hypertension Pure hypercholesterolemia E78.00 Hyperlipidemia type: pure hypercholesterolemia Postablative hypothyroidism E89.0 Hypothyroidism type: postablative Thyroid nodule E04.1 Exertional dyspnea R06.00 Impaired fasting glucose R73.01 Age-related osteoporosis without current pathological fracture M81.0 Osteoporosis type: age-related Presence of current pathological fracture: without current pathological fracture Benign hematuria N02.9 Scoliosis of thoracic spine, unspecified scoliosis type M41.9 Scoliosis type: unspecified scoliosis Anxiety F41.9
[2023-06-17 10:36] VITALS: BP 178/100
== END 2023-06-17 10:36 | disposition home or self-care (01) ==
PROVIDERS: PCP Internal Medicine; Visit Provider Internal Medicine
DX: I10 Essential (primary) hypertension (principal); E78.00 Pure hypercholesterolemia, unspecified; E89.0 Postprocedural hypothyroidism; E04.1 Nontoxic single thyroid nodule; R06.00 Dyspnea, unspecified; R73.01 Impaired fasting glucose; M81.0 Age-related osteoporosis without current pathological fracture; N02.9 Recurrent and persistent hematuria with unspecified morphologic changes; M41.9 Scoliosis, unspecified; F41.9 Anxiety disorder, unspecified; Z23 Encounter for immunization
CPT/HCPCS: 90471; 90686; 99214

== ENCOUNTER 2023-10-06 07:01 | Outpatient (REF) | payer MEDICARE, OTHER, SELFPAY ==
[2023-10-06 07:22] LABS: MANUAL DIFF FLAG NO
[2023-10-06 07:57] LABS: Basophils Percent Auto 0.3 % (0-2); Eosinophils Absolute Auto 0.1 X10*3/uL (0.0-0.4); Eosinophils Percent Auto 1.5 % (0-4); Hematocrit 47.5 % (37.0-47.0); Hemoglobin 15.8 g/dl (12.0-16.0); Imm Gran Abs Auto 0.01 X10*3/uL (0.00-0.03); Imm Gran Pct Auto 0.2 % (0.0-0.4); Lymphocytes Absolute Auto 1.8 X10*3/uL (1.2-4.9); Lymphocytes Percent Auto 26.8 % (20-40); Mean Corpuscular HGB Conc 33.3 g/dl (31.0-35.0); Mean Corpuscular Hemoglobin 30.4 pg (27.0-33.0); Mean Corpuscular Volume 91.3 fL (80.0-98.0); Mean Platelet Volume 9.8 fL (9.4-12.3); Monocytes Absolute Auto 0.5 X10*3/uL (0.1-1.2); Monocytes Percent Auto 8.1 % (2-11); Neutrophils Absolute Auto 4.2 x10*3/uL (2.0-8.3); Neutrophils Percent Auto 63.1 % (45-73); Platelet Count 328 X10*3/uL (160-400); Red Cell Distribution Width 11.9 % (11.0-16.0); White Blood Count 6.6 X10*3/uL (4.8-10.8)
[2023-10-06 08:09] LABS: Estimated Average Glucose 103 mg/dL; Hemoglobin A1c % 5.2 % (<6.0)
[2023-10-06 08:24] LABS: Alanine Aminotransferase 29 U/L (0-31); Albumin Level 4.3 g/dL (3.5-5.0); Alkaline Phosphatase 81 U/L (39-117); Anion Gap 15 (12-20); Aspartate Amino Transferase 25 U/L (5-31); Bilirubin Total 0.6 mg/dL (0.0-1.0); Blood Urea Nitrogen 11 mg/dL (9-16); Calcium 9.7 mg/dL (8.4-10.2); Carbon Dioxide 28 mmol/L (22-29); Chloride 102 mmol/L (96-108); Cholesterol 231 mg/dL (<200); Estimated Glomerular Filt Rate > 60; Glucose Fasting 91 mg/dL (60-99); HDL Cholesterol 50 mg/dL (>40); LDL Cholesterol Calculated 145 mg/dL (<100); Potassium 3.5 mmol/L (3.3-5.1); Sodium 141 mmol/L (135-145); Total Protein 7.6 g/dL (6.5-8.0); Triglycerides 183 mg/dL (<150)
[2023-10-06 08:32] LABS: Appearance Urine Cloudy; Color Urine Yellow; Glucose Urine UA Negative (Negative); Leukocyte Esterase Urine Moderate (2+) (Negative); Nitrite Urine Positive (Negative); PH 7.5 (5.0-9.0); Specific Gravity - Urine 1.015 (1.005-1.025); UMIC TRIGGER UACC YES; Urine Blood Small (1+) (Negative); Urine Ketones Negative (Negative); Urine Protein Negative (Neg-Trace)
[2023-10-06 08:40] LABS: Bacteria Urine 4+ (None Seen); Hyaline Casts Urine 0-2 /LPF (0-2); UACC Culture Trigger YES
[2023-10-06 08:42] LABS: Free T4 (Free Thyroxine) 0.98 ng/dL (0.71-1.85); Thyroid Stimulating Hormone 2.73 uIU/mL (0.32-4.0)
== END 2023-10-06 07:02 | disposition home or self-care (01) ==
LOC: HO.LAB 07:01
PROVIDERS: PCP Internal Medicine; Visit Provider Internal Medicine
DX: I10 Essential (primary) hypertension (principal); E03.9 Hypothyroidism, unspecified; E55.9 Vitamin D deficiency, unspecified; R73.01 Impaired fasting glucose; E78.00 Pure hypercholesterolemia, unspecified; R30.0 Dysuria
CPT/HCPCS: 36415; 80053; 80061; 81001; 82306; 83036; 84439; 84443; 85025; 87086; 87088; 87186

== ENCOUNTER 2023-10-17 10:41 | Outpatient (AMB) | payer MEDICARE, OTHER, SELFPAY ==
[2023-10-17 10:48] VITALS: BP 150/60; PULSE 52; O2SAT 98; BMI 25.6
--- NOTE | 2023-10-17 10:48 | A.OFFPC_ITS ---
Vital Signs 10/17/23 10:48 Height 5 ft 2 in Weight 140 lb BMI 25.6 BP 150/60 H Blood Pressure Location Lt brachial Position Sitting Pulse 52 Pulse Source Pulse Oximeter Pulse Oximetry (%) 98 Oxygen Delivery Method Room Air Intake Visit Reasons: HTN, hyperlipidemia, scoliosis, hypothyroidism Electron Tube Assembler Required: No Application Development Specialist: Not Required per policy Accompanied by: Self / Same As Patient Allergies risedronate sodium Adverse Reaction (Intermediate, Verified 06/21/24 12:56) muscle pain and dizziness Medication List - Last Reconciled 06/21/24 by Edis Blanco MD atorvastatin 10 mg PO DAILY 90 days blood pressure monitor As directed bupropion HCl XL 150 mg PO QAM 90 days hydroxyzine HCl 25 mg PO TID PRN 30 days levothyroxine 62.5 mcg (1/2 x 125 mcg) PO DAILY 30 days lisinopril-hydrochlorothiazide 20-25 mg 1 tab PO DAILY 90 days multivitamin 1 tab PO DAILY nitrofurantoin monohyd/m-cryst 100 mg 100 mg PO Q12H 7 days [RIGHT WRIST SPLINT As directed] tizanidine 4 mg PO TID PRN 30 days tramadol 50 mg PO TID PRN Tobacco use date assessed: 10/17/23 Fall risk assessment: No Falls in past year Last assessed Fall Risk: 10/17/23 Dental Screening Dental Screen Date: 10/17/23 Did you have a dental visit in the last 12 months?: Yes Did you have a dental problem in the last 6 months where you did not have access to dental care?: No Was dental information given to patient?: Patient has dentist HPI HTN, hyperlipidemia, scoliosis, hypothyroidism HPI Details Patient comes in today for her follow up visit States that she feels okay except for increased pain in her right wrist lately, which she states has been going on for a couple of weeks now She denies any recent injury or trauma to her wrist She denies any headaches or dizziness Denies any chest pains, no increased SOB No nausea/vomiting, no abdominal pain No change in bowel habits noted She still has recurrent low back pain due to her scoliosis but states that they are mostly manageable She needs her Tramadol Rx refilled She had her follow up labs done a couple of weeks ago - to discuss her results [facility] Medical History (Updated 06/21/24 @ 18:02 by Edis Blanco MD) Acquired hypothyroidism Mixed hyperlipidemia Essential hypertension Anxiety Exertional dyspnea Left-sided thoracic back pain Non-toxic multinodular goiter Impaired fasting glucose Osteoporosis Scoliosis of thoracic spine Benign hematuria Thyroid nodule Hypothyroidism Hyperlipidemia Hypertension Surgical History History of cosmetic plastic surgery Family History Father No problems noted. Mother Diabetes Social History Housing: House Alcohol intake: current Alcohol intake frequency: a few times a month Alcohol type: wine Patient Tobacco Use Status: Former Tobacco user Tobacco use type: Cigarette e-Cigarette/Vaping Use: Currently Using Second Hand Smoke Exposure: Yes service: No Current occupational status: retired Cognitive needs: No Hearing needs: No Vision needs: No Questionnaire PHQ-9 Over the last 2 weeks, how often have you been bothered by any of the following problems? 1. Little interest or pleasure in doing things: not at all 2. Feeling down, depressed, or hopeless: not at all 3. Trouble falling or staying asleep, or sleeping too much: not at all 4. Feeling tired or having little energy: not at all 5. Poor appetite or overeating: not at all 6. Feeling bad about yourself - or that you are a failure or have let yourself or your family down: not at all 7. Trouble concentrating on things, such as reading the newspaper or watching television: not at all 8. Moving or speaking so slowly that other people could have noticed. Or the opposite - being so fidgety or restless that you have been moving around a lot more than usual: not at all 9. Thoughts that you would be better off or of hurting yourself in some way: not at all Total score: 0 Depression Screening Interpretation: Negative Depression Screening Done: Yes 87249 - PHQ-9 Billing: Yes Source: Developed by Drs. Balwinder Crane, Babita Gaston, Adalid Hawthorne and colleagues, with an educational jaylen from [employer]. Thrive Questionnaire Date Thrive assessed: 10/17/23 I am a: Patient What is your living situation today?: I have a steady place to live Within the past 12 months, did the food you bought not last and you didn't have the money to get more?: Never true Within the past 12 months, did you worry whether your food would run out before you got money to buy more?: Never true Do you have trouble paying for medicines?: No Do you have trouble getting transportation to medical appointments?: No Do you have trouble paying your heating and electricity bill?: No Do you have trouble taking care of your child, family member or friend?: No Do you have trouble with day-to-day activities such as bathing, preparing meals, shopping, managing finances, etc.?: No Are you currently unemployed and looking for a job?: No Are you interested in more education?: No Please select the resources that you would like help with: None Currently or been in a relationship where the following occur: no concerns reported THRIVE Score: 0 AUDIT C Alcohol Use Questionnaire (AUDIT-C) 1. How often do you have a drink containing alcohol?: Never 3. How often do you have six or more drinks on one occasion?: Never Total Score: 0 Score Reviewed/Action Taken: Yes POLLY-7 AMB Questionnaire POLLY-7 Date POLLY - 7 assessed: 10/17/23 Feeling nervous, anxious, or on edge: 0 = Not at all Not being able to stop or control worryin = Not at all Worrying too much about different things: 0 = Not at all Trouble relaxin = Not at all Being so restless that it is hard to sit still: 0 = Not at all Becoming easily annoyed or irritable: 0 = Not at all Feeling afraid as if something awful might happen: 0 = Not at all Total POLLY-7 score (0-4 normal; 5-9 mild; 10-14 moderate; 15-21 severe): 0 Source: Developed by Drs. Balwinder Crane, Babita Gaston, Adalid Hawthorne and colleagues, with an educational jaylen from [employer]. Review of Systems Const Denies chills, Denies fatigue, Denies fever(s) and Denies headache(s) ENT Denies dysphagia, Denies dizziness, Denies otalgia, Denies headache(s), Denies neck pain, Denies odynophagia and Denies sore throat Card Denies chest pain, Denies palpitations and Reports dyspnea on exertion (mild) Resp Denies chest congestion, Denies cough and Reports dyspnea on exertion (mild) GI Denies abdominal pain, Denies constipation, Denies dysphagia, Denies heartburn, Denies diarrhea, Denies nausea, Denies odynophagia and Denies vomiting Denies difficulty voiding, Denies nocturia, Denies dysuria and Denies urinary urgency Musc Reports back pain (over the left thoracic area just under the scapula - recurrent) and Denies neck pain Skin/Breast Denies rash Neuro Denies dizziness and Denies headache(s) Psych Reports anxiety (controlled on Rx) Endo Denies fatigue and Denies palpitations Asa/Lymph Denies easy bruising Physical exam (Primary Care) Vital Signs: Last Vital Signs Pulse 52 10/17/23 10:48 BP 150/60 H 10/17/23 10:48 Pulse Ox 98 10/17/23 10:48 Oxygen Delivery Method Room Air 10/17/23 10:48 BMI result Body Mass Index 25.6 Tobacco/Smoking Status: Tobacco use Status Tobacco use date assessed 10/17/23 10/17/23 10:50 Patient Tobacco Use Status Former Tobacco user 10/17/23 10:50 Tobacco use type Cigarette 10/17/23 10:50 e-Cigarette/Vaping Use Currently Using 10/17/23 10:50 PHQ-9: PHQ-9 Score PHQ-9: Total score 0 10/17/23 11:55 Depression Screening Interpretation: Negative Thrive Assessment: Date of Thrive Assessment Date Thrive assessed 10/17/23 10/17/23 10:50 Currently or been in a relationship where the following occur: no concerns reported Const General: no acute distress and alert HENMT Ears: TM's normal bilaterally and EAC's normal Throat: Yes posterior oropharynx normal and Yes tonsils normal (no TP congestion noted) Neck Neck: Yes no lymphadenopathy and Yes supple Thyroid: Thyroid normal Resp Auscultation: clear to auscultation bilaterally, no rales and no wheezes Cardio Rate: regular rate Rhythm: regular rhythm Heart sounds: no murmurs GI Palpation (GI): Soft to palpation and nontender Auscultation: normal bowel sounds General: Yes no CVA tenderness Back/Spine/Pelvis Back: no CVA tenderness Thoracic/Lumbar Spine: paraspinal muscle tenderness on the left in the mid thoracic (just under the left scapula, mild), Thoracic/lumbar scoliosis and No lumbar spinal tenderness Skin Rashes: no rashes Extrem General: Yes no clubbing, cyanosis or edema Results Reviewed Results Reviewed: Laboratory Tests 10/06/23 10/06/23 07:17 07:21 WBC 6.6 Hgb 15.8 Hct 47.5 H Plt Count 328 Sodium 141 Potassium 3.5 Creatinine 0.69 Estimated GFR > 60 Fasting Glucose 91 Hemoglobin A1c % 5.2 Calcium 9.7 AST 25 ALT 29 Triglycerides 183 H Cholesterol 231 H LDL Cholesterol, Calc 145 H HDL Cholesterol 50 25-OH Vitamin D Total 37.0 TSH 2.73 Free T4 0.98 Ur Specific [place] 1.015 Urine Protein Negative Urine Glucose (UA) Negative Urine Blood Small (1+) H Urine Nitrite Positive H Ur Leukocyte Esterase Moderate (2+) H Coding Level of Care Code Est Pt Level 4 (60918) Diagnoses Essential hypertension I10 Hypertension type: essential hypertension Pure hypercholesterolemia E78.00 Hyperlipidemia type: pure hypercholesterolemia Postablative hypothyroidism E89.0 Hypothyroidism type: postablative Thyroid nodule E04.1 Exertional dyspnea R06.00 Impaired fasting glucose R73.01 Age-related osteoporosis without current pathological fracture M81.0 Osteoporosis type: age-related Presence of current pathological fracture: without current pathological fracture Benign hematuria N02.9 Right wrist pain M25.531 Scoliosis of thoracic spine, unspecified scoliosis type M41.9 Scoliosis type: unspecified scoliosis Anxiety F41.9
== END 2023-10-17 11:59 | disposition home or self-care (01) ==
PROVIDERS: PCP Internal Medicine; Visit Provider Internal Medicine
DX: I10 Essential (primary) hypertension (principal); E78.00 Pure hypercholesterolemia, unspecified; E89.0 Postprocedural hypothyroidism; E04.1 Nontoxic single thyroid nodule; R06.00 Dyspnea, unspecified; R73.01 Impaired fasting glucose; M81.0 Age-related osteoporosis without current pathological fracture; N02.9 Recurrent and persistent hematuria with unspecified morphologic changes; M25.531 Pain in right wrist; M41.9 Scoliosis, unspecified; F41.9 Anxiety disorder, unspecified
CPT/HCPCS: 99214

== ENCOUNTER 2023-10-18 08:26 | Outpatient (REF) | payer MEDICARE, OTHER, SELFPAY ==
--- NOTE | ~2023-10-18 | XR_ITS ---
EXAMINATION: XR WRIST, RIGHT CLINICAL INFORMATION: Pain in right wrist, suspect median nerve neuropathy. COMPARISON: None available. TECHNIQUE: 4 views of the right wrist. FINDINGS: The bones are diffusely demineralized. Small corticated ossicle with adjacent tiny ossicle in the region of the ulnar styloid may be related to prior trauma rather than an acute process and correlation with clinical exam as well as direct correlation with prior images is recommended. Small soft tissue calcific densities along the ventral and dorsal aspects of the wrist of indeterminate age and etiology. Advanced degenerative changes in the scaphoid-trapezium with subchondral sclerosis and loss of the joint space. Moderate degenerative changes in the first carpometacarpal joint with joint space narrowing and hypertrophic change. XR/XR wrist RT min 3V IMPRESSION: 1. Small corticated ossicle with adjacent tiny ossicle in the region of the ulnar styloid may be related to prior trauma rather than an acute process and correlation with clinical exam as well as direct correlation with prior images is recommended. 2. Small soft tissue calcific densities along the ventral and dorsal aspects of the wrist of indeterminate age and etiology. 3. Advanced degenerative changes in the scaphoid-trapezium with subchondral sclerosis and loss of the joint space. Moderate degenerative changes in the first carpometacarpal joint with joint space narrowing and hypertrophic change. Direct correlation with prior images is recommended and if prior images are provided, an addendum will be dictated. Recommend follow-up imaging in 10-14 days if fracture is suspected.
== END 2023-10-18 08:27 | disposition home or self-care (01) ==
LOC: HO.XRAY 08:26
PROVIDERS: PCP Internal Medicine; Visit Provider Internal Medicine
DX: M79.2 Neuralgia and neuritis, unspecified (principal); M25.531 Pain in right wrist
CPT/HCPCS: 73110

== ENCOUNTER 2024-02-24 06:55 | Outpatient (REF) | payer MEDICARE, OTHER, SELFPAY ==
[2024-02-24 07:06] LABS: MANUAL DIFF FLAG NO
[2024-02-24 07:36] LABS: Appearance Urine Turbid; Color Urine Yellow; Glucose Urine UA Negative (Negative); Leukocyte Esterase Urine Large (3+) (Negative); Nitrite Urine Negative (Negative); PH 6.5 (5.0-9.0); UMIC TRIGGER UACC YES; Urine Blood Large (3+) (Negative); Urine Ketones Negative (Negative); Urine Protein 30 (1+) mg/dL (Neg-Trace)
[2024-02-24 07:38] LABS: Basophils Percent Auto 0.3 % (0-2); Eosinophils Absolute Auto 0.1 X10*3/uL (0.0-0.4); Eosinophils Percent Auto 1.3 % (0-4); Hematocrit 46.7 % (37.0-47.0); Hemoglobin 15.4 g/dl (12.0-16.0); Imm Gran Abs Auto 0.02 X10*3/uL (0.00-0.03); Imm Gran Pct Auto 0.3 % (0.0-0.4); Lymphocytes Absolute Auto 2.2 X10*3/uL (1.2-4.9); Lymphocytes Percent Auto 32.5 % (20-40); Mean Corpuscular Hemoglobin 30.6 pg (27.0-33.0); Mean Corpuscular Volume 92.7 fL (80.0-98.0); Mean Platelet Volume 9.9 fL (9.4-12.3); Monocytes Absolute Auto 0.6 X10*3/uL (0.1-1.2); Monocytes Percent Auto 9.1 % (2-11); Neutrophils Absolute Auto 3.8 x10*3/uL (2.0-8.3); Neutrophils Percent Auto 56.5 % (45-73); Platelet Count 340 X10*3/uL (160-400); Red Blood Count 5.04 X10*6/uL (4.20-5.50); White Blood Count 6.8 X10*3/uL (4.8-10.8)
[2024-02-24 07:54] LABS: Bacteria Urine 4+ (None Seen); RBC Urine >20 /HPF (0-2); UACC Culture Trigger YES; WBC Urine >50 /HPF (0-5)
[2024-02-24 08:14] LABS: Alanine Aminotransferase 21 U/L (0-31); Albumin Level 4.1 g/dL (3.5-5.0); Alkaline Phosphatase 80 U/L (39-117); Anion Gap 13 (12-20); Aspartate Amino Transferase 20 U/L (5-31); Bilirubin Total 0.4 mg/dL (0.0-1.0); Blood Urea Nitrogen 13 mg/dL (9-16); Calcium 9.4 mg/dL (8.4-10.2); Carbon Dioxide 28 mmol/L (22-29); Chloride 104 mmol/L (96-108); Cholesterol 203 mg/dL (<200); Estimated Glomerular Filt Rate > 60; Glucose Fasting 97 mg/dL (60-99); HDL Cholesterol 51 mg/dL (>40); LDL Cholesterol Calculated 122 mg/dL (<100); Potassium 4.4 mmol/L (3.3-5.1); Sodium 141 mmol/L (135-145); Total Protein 6.9 g/dL (6.5-8.0); Triglycerides 151 mg/dL (<150)
[2024-02-24 08:23] LABS: Free T4 (Free Thyroxine) 0.95 ng/dL (0.71-1.85); Thyroid Stimulating Hormone 2.43 uIU/mL (0.32-4.0); Vitamin D 25-OH Total 43.2 ng/mL (>30)
[2024-02-24 08:33] LABS: Folate 13.4 ng/mL (> or = 4.0); Vitamin B12 641 pg/mL (200-900)
== END 2024-02-24 06:56 | disposition home or self-care (01) ==
LOC: HO.LAB 06:55
PROVIDERS: PCP Internal Medicine; Visit Provider Internal Medicine
DX: E78.00 Pure hypercholesterolemia, unspecified (principal); R30.0 Dysuria; E55.9 Vitamin D deficiency, unspecified; E53.8 Deficiency of other specified B group vitamins; E03.9 Hypothyroidism, unspecified; D64.9 Anemia, unspecified
CPT/HCPCS: 36415; 80053; 80061; 81001; 82306; 82607; 82746; 84439; 84443; 85025; 87086; 87088; 87186

== ENCOUNTER 2024-03-02 08:50 | Outpatient (AMB) | payer MEDICARE, OTHER, SELFPAY ==
[2024-03-02 08:53] VITALS: BP 138/82; PULSE 87; O2SAT 97; BMI 25.6
--- NOTE | 2024-03-02 08:53 | AM.OFFVISMDC ---
Intake Vital Signs 03/02/24 08:53 Height 5 ft 2 in Weight 140 lb 0.4 oz BMI 25.6 BP 138/82 Blood Pressure Location Lt brachial Position Sitting Pulse 87 Pulse Source Pulse Oximeter Pulse Oximetry (%) 97 Oxygen Delivery Method Room Air Intake Visit Reasons: SAWV Intake Note: Patient is here for an Annual Wellness Visit. Allergies risedronate sodium Adverse Reaction (Intermediate, Verified 03/02/24 09:07) muscle pain and dizziness Medication List - Last Reconciled 03/02/24 by Edis Blanco MD atorvastatin 10 mg PO DAILY 90 days blood pressure monitor As directed bupropion HCl XL 150 mg PO QAM 90 days hydroxyzine HCl 25 mg PO TID PRN 30 days levothyroxine 62.5 mcg (1/2 x 125 mcg) PO DAILY 30 days lisinopril-hydrochlorothiazide 20-25 mg 1 tab PO DAILY 90 days multivitamin 1 tab PO DAILY [RIGHT WRIST SPLINT As directed] tizanidine 4 mg PO TID PRN 30 days tramadol 50 mg PO TID PRN HPI SAWV HPI Details Patient comes in today for her Annual Medicare Wellness Exam AND follow up visit States that she feels well Relates that she missed a step while going up her stairs at home a couple of weeks ago and woke up the next day with increased pain over her left calf muscle, which gradually subsided over a few days States that she would still feel some pain over the muscle when she walks for an extended period of time or when she starts pushing off with her left leg when trying to walk faster - states that she would then stop and let the pain subside before she starts walking again Is wondering how long a muscle injury in her leg would take to heal She denies any headaches or dizziness Denies any chest pains, no increased SOB No nausea/vomiting, no abdominal pain No change in bowel habits noted She denies any dysuria or urinary frequency but states that her urine has a very strong odor to it and sometimes look very dark in appearance lately Also still has on and off pain over her right lower back but states that these remain mostly manageable She had her follow up labs done last week - to discuss her results IPPE/AWV: c/o of Annual Wellness Visit, subsequent visit. Medical / Social History Reviewed Past Medical History Yes . [place] of Care / Care Team list updated Yes . Surgical/Hospitalization History Yes . Current Medications (including OTC and supplements) Yes . Family History Yes . Tobacco Control form Yes . AUDIT-C (Alcohol use) form Yes . Illicit drug use in Social History Yes . Current diagnosis of depression? No Appropriate PHQ2/PHQ9 completed Yes . Data entered by Paid Search Marketing Strategist and reviewed by provider Home Safety Throw rugs? No Grab bars? No Raised toilet seats? No Working smoke detectors? Yes Working carbon monoxide detectors? Yes Data entered by Paid Search Marketing Strategist and reviewed by provider Activities of Daily Living (ADLs) Difficulty bathing or showering? No Difficulty dressing? No Difficulty using the toilet? No Difficulty getting in and out of bed? No Difficulty walking? No Receives help from another person with any of the above tasks? No Instrumental Activities of Daily Living (IADLs) Uses the telephone without help Gets to places out of walking distance without help Goes shopping for groceries without help Prepares own meals without help Does own minor home maintenance without help Does own laundry without help Does own housework without help Manages own money without help Currently takes medications? Yes Takes medication without help End-of-Life Planning Discussed advance directive Yes Advance directive on file Discussed wishes expressed in advance directive agreed to following patient's wishes Fall Risk: Fall History Have you had any falls with injury in the past year? No . Have you had two or more falls in the past year? No . Fall Risk Assessment: No falls in the past year . HRA filled out by the patient, reviewed by Provider and scanned. [facility] Medical History (Updated 03/02/24 @ 09:53 by Edis Blanco MD) Anxiety Exertional dyspnea Left-sided thoracic back pain Non-toxic multinodular goiter Impaired fasting glucose Osteoporosis Scoliosis of thoracic spine Benign hematuria Thyroid nodule Hypothyroidism Hyperlipidemia Hypertension Surgical History (Updated 03/02/24 @ 09:11 by Edis Blanco MD) History of cosmetic plastic surgery Family History Father No problems noted. Mother Diabetes Social History Housing: House Alcohol intake: current Alcohol intake frequency: a few times a month Alcohol type: wine Patient Tobacco Use Status: Former Tobacco user Tobacco use type: Cigarette e-Cigarette/Vaping Use: Currently Using Second Hand Smoke Exposure: Yes service: No Current occupational status: retired Cognitive needs: No Hearing needs: No Vision needs: No Questionnaire Medicare Wellness Checkup [age] What gender do you identify with?: female During the past 4 weeks, how much have you been bothered by emotional problems such as feeling anxious, depressed, irritable, sad or downhearted, and blue?: not at all During the past 4 weeks, has your physical & emotional health limited your social activities with family, friends, neighbors, or groups?: not at all During the past 4 weeks, how much bodily pain have you generally had?: very mild pain During the past 4 weeks, was someone available to help you if you needed & wanted help?: yes, as much as I wanted During the past 4 weeks, what was the hardest physical activity you could do for at least 2 minutes?: moderate Can you get to places out of walking distance without help? (For eg., can you travel alone on buses, taxis or drive your car?): Yes Can you go shopping for groceries or clothes without someone's help?: Yes Can you prepare your own meals?: Yes Can you do your housework without help?: Yes Because of any health problems, do you need the help of another person with your personal care needs such as eating, bathing, dressing or getting around the house?: No Can you handle your own money without help?: Yes During the past 4 weeks, how would you rate your health in general?: very good During the past 4 weeks how have things been going for you?: very well; could hardly better Are you having difficulties driving your car?: no Do you always fasten your seat belt when you are in a car?: yes, usually During past 4 weeks, have you been bothered by the following: never: Falling or dizzy when standing up, Sexual problems?, Trouble eating well?, Teeth or denture problems?, Problems using the telephone? and Tiredness or fatigue? Have you fallen 2 or more times in the past year?: No Are you afraid of falling?: No Are you a smoker?: no During the past 4 weeks, how many drinks of wine, beer, or other alcoholic beverages did you have?: 2-5 drinks per week Do you exercise for about 20 minutes 3 or more times a week?: yes, most of the time Have you been given information to help with the following?: yes: Hazards in your house that might hurt you? and yes: Keeping track of your medications? How often do you have trouble taking medicines the way you have been told to take them?: I do not have to take medicine How confident are you that you can control & manage most of your health problems?: very confident What is your race?: White Mini Mental State Exam (MMSE) Orientation What is the (year) (season) (date) (day) (month)?: year, season, date, day and month Where are we (state) (county) (town or city) (hospital) (floor)?: state, county, town or city, hospital/clinic and floor Score Score: 10 Activity of Daily Living Bathing - sponge bath, tub bath or shower: receives no assistance (gets in/out by self, if usual bathing means Dressing - getting clothes from closets & drawers, including inner/outer garments & fasteners.: gets clothes & gets completely dressed without help Toileting - going to the 'toilet room' for urine/bowel elimination & cleaning self/arranging clothes: goes to toilet room, cleans self, arranges clothes without help Transfer: moves in & out of bed and chair without help (may use support object) Continence: controls urination/bowel movements completely by self Feeding: feeds self without help Total Score: 0 Information obtained from: patient Using telephone: independent Traveling: independent Shopping: independent Preparing meals: independent Housework: independent Taking medicine: independent Managing money: independent PHQ-9 Over the last 2 weeks, how often have you been bothered by any of the following problems? 1. Little interest or pleasure in doing things: not at all 2. Feeling down, depressed, or hopeless: not at all 3. Trouble falling or staying asleep, or sleeping too much: not at all 4. Feeling tired or having little energy: not at all 5. Poor appetite or overeating: not at all 6. Feeling bad about yourself - or that you are a failure or have let yourself or your family down: not at all 7. Trouble concentrating on things, such as reading the newspaper or watching television: not at all 8. Moving or speaking so slowly that other people could have noticed. Or the opposite - being so fidgety or restless that you have been moving around a lot more than usual: not at all 9. Thoughts that you would be better off or of hurting yourself in some way: not at all Total score: 0 Depression Screening Interpretation: Negative Depression Screening Done: Yes 72860 - PHQ-9 Billing: Yes Source: Developed by Drs. Balwinder Crane, Babita Gaston, Adalid Hawthorne and colleagues, with an educational jaylen from [employer]. Review of Systems Const Denies chills, Denies fatigue, Denies fever(s) and Denies headache(s) ENT Denies dysphagia, Denies dizziness, Denies otalgia, Denies headache(s), Denies neck pain, Denies odynophagia and Denies sore throat Card Denies chest pain, Denies palpitations and Reports dyspnea on exertion (mild) Resp Denies chest congestion, Denies cough, Reports dyspnea on exertion (mild) and Denies wheezing GI Denies abdominal pain, Denies constipation, Denies dysphagia, Denies heartburn, Denies diarrhea, Denies nausea, Denies odynophagia and Denies vomiting Details: (+) very strong odor to her urine and urine appears very dark in appearance/color at times Denies difficulty voiding, Denies nocturia and Denies urinary urgency Musc Details: (+) recurrent pain over the left calf muscle - see HPI Reports back pain (on and off over the right lower back) and Denies neck pain Skin/Breast Denies rash Neuro Denies dizziness and Denies headache(s) Psych Reports anxiety (controlled on Rx) Endo Denies fatigue and Denies palpitations Aller/Immun Denies wheezing Physical Exam Vital Signs: Last Vital Signs Pulse 87 03/02/24 08:53 BP 138/82 03/02/24 08:53 Pulse Ox 97 03/02/24 08:53 Oxygen Delivery Method Room Air 03/02/24 08:53 BMI result Body Mass Index 25.6 IPPE/AWV: Balance Romberg Yes . Tandem walk Yes . Walk and Turn Yes . Rise from sit to stand Yes . Vision Corrective lens Yes Vision screen pass Hearing Whisper test pass . Urinary incont. no. EKG Not clinically necessary. Const General: no acute distress and alert HEENT Ears: TM's normal bilaterally and EAC's normal Throat: Yes posterior oropharynx normal and Yes tonsils normal (no TP congestion noted) Neck Neck: Yes no lymphadenopathy and Yes supple Thyroid: Thyroid normal Resp Auscultation: clear to auscultation bilaterally, no rales and no wheezes Cardio Rate: regular rate Rhythm: regular rhythm Heart sounds: no murmurs GI Palpation (GI): Soft to palpation and nontender Auscultation: normal bowel sounds Skin Rashes: no rashes Neuro Cognition (Neuro): normal cognition Gait exam (Neuro): Normal gait present Extrem General: Yes no clubbing, cyanosis or edema Left lower extremity: lower leg Details: tenderness Location: of the posterior calf (around the middle area of the calf muscle on deep palpation) Psych Thought process: Normal thought process present Thought content: Normal thought content present Results Reviewed Results Reviewed: Laboratory Tests 02/24/24 02/24/24 07:00 07:04 WBC 6.8 Hgb 15.4 Hct 46.7 Plt Count 340 Sodium 141 Potassium 4.4 D Creatinine 0.71 Estimated GFR > 60 Fasting Glucose 97 Calcium 9.4 AST 20 ALT 21 Triglycerides 151 H Cholesterol 203 H LDL Cholesterol, Calc 122 H HDL Cholesterol 51 Vitamin B12 641 25-OH Vitamin D Total 43.2 TSH 2.43 Free T4 0.95 Ur Specific [place]ater[place] 1.020 Urine Protein 30 (1+) H Urine Glucose (UA) Negative Urine Blood Large (3+) H Urine Nitrite Negative Ur Leukocyte Esterase Large (3+) H Assessment & Plan Assessment & Plan (1) Encounter for Medicare annual wellness exam: Code(s): Z00.00 - Encounter for general adult medical examination without abnormal findings Plan: HRA form completed and discussed with patient - form will be scanned into patient's chart (2) Hypertension: Code(s): I10 - Essential (primary) hypertension Qualifiers: Hypertension type: essential hypertension Qualified Code(s): I10 - Essential (primary) hypertension Plan: Reinforced low sodium diet - goal is systolic BP of at least 130 to 140 mm Continue Lisinopril-HCT 20-25 mg QD Advised patient to continue monitoring her blood pressure regularly (3) Hyperlipidemia: Code(s): E78.5 - Hyperlipidemia, unspecified Qualifiers: Hyperlipidemia type: pure hypercholesterolemia Qualified Code(s): E78.00 - Pure hypercholesterolemia, unspecified Plan: Results of her labs done last week reviewed and discussed with patient Reinforced low cholesterol diet Continue on Atorvastatin 10 mg daily Will recheck her labs and fasting lipids in 4 months for follow-up (4) Hypothyroidism: Code(s): E03.9 - Hypothyroidism, unspecified Qualifiers: Hypothyroidism type: postablative Qualified Code(s): E89.0 - Postprocedural hypothyroidism Plan: Her TFTs remain normal on her recent labs Continue Levothyroxine 125 mcg 1/2 tablet QD Follow up with endocrinology as scheduled (5) Thyroid nodule: Code(s): E04.1 - Nontoxic single thyroid nodule Plan: Thyroid biopsy done by Dr. Berry in 2019 came back benign - benign follicular nodule Follow-up sonogram done a few months ago showed stable thyroid nodules with no significant change from previous and recommend continuing surveillance Follow-up with endocrinology as scheduled (6) Scoliosis of thoracic spine: Code(s): M41.9 - Scoliosis, unspecified Qualifiers: Scoliosis type: unspecified scoliosis Qualified Code(s): M41.9 - Scoliosis, unspecified Plan: Mostly asymptomatic with only (+) occasional low back pain (7) Strain of left calf muscle: Code(s): S86.812A - Strain of other muscle(s) and tendon(s) at lower leg level, left leg, initial encounter Plan: Have advised patient that based on her exam findings, she suffered a significant strain injury to her left calf muscle a couple of weeks ago and it may take a few weeks for her injury to completely heal up as long as she does not do anything to aggravate her injury Advised that she can just take OTC Tylenol as needed for pain but patient states that she can manage it as long as she knows what is going on and how things are supposed to proceed (8) Osteoporosis: Code(s): M81.0 - Age-related osteoporosis without current pathological fracture Qualifiers: Osteoporosis type: age-related Presence of current pathological fracture: without current pathological fracture Qualified Code(s): M81.0 - Age-related osteoporosis without current pathological fracture Plan: Repeat BMD done on 11/09/2022 showed (+) osteoporosis with no significant change from previous - lowest T-score value is -2.5 in the lumbar spine Patient was unable to tolerate Risedronate but has been tolerating Ibandronate without any problems Was on Ibandronate 150 mg once a month for about 3 years and this was stopped by Dr. Rueda last March (2022) for a drug holiday period She will be seeing Dr. Rueda for follow up next month to discuss potential treatment plans going forward (9) Bacteriuria with pyuria: Code(s): R82.71 - Bacteriuria; R82.81 - Pyuria Plan: Her urinalysis done last week showed (+) pyuria and hematuria Urine C/S grew E. coli at >145566 cfu - is pansensitive Will start her empirically on Macrobid 100 mg BID x 7 days She is also encouraged to increase her oral fluid intake (10) Colon cancer screening: Code(s): Z12.11 - Encounter for screening for malignant neoplasm of colon Plan: Patient continues to decline screening colonoscopy (never had one done before) but had a negative Cologuard test done back in January 2021 Have advised her that it is now time to recheck this - she agrees to repeating her Cologuard test (ordered) Plan Follow up in 4 months Orders: Orders Free T4 (Free Thyroxine) 4 Months E03.9 - Hypothyroidism, unspecified UA CC w/rflx Micro + Cult 4 Months R30.0 - Dysuria Vitamin D 25-OH Total 4 Months E55.9 - Vitamin D deficiency, unspecified Complete Blood Count Auto Diff 4 Months D64.9 - Anemia, unspecified Lipid Panel 4 Months E78.00 - Pure hypercholesterolemia, unspecified Comprehensive [place]. Panel Fast 4 Months E78.00 - Pure hypercholesterolemia, unspecified Thyroid Stimulating Hormone 4 Months E03.9 - Hypothyroidism, unspecified Referrals Cologuard Test Z12.11 - Encounter for screening for malignant neoplasm of colon, Z12.12 - Encounter for screening for malignant neoplasm of rectum Medications: New nitrofurantoin monohyd/m-cryst 100 mg must administer with a meal/food 100 mg PO Q12H 7 days 14 caps 0RF Quality Reporting (2019) Depression/Bipolar (159/160/161/177) PHQ-9: Total score: 0 Coding Level of Care Code Medicare Subsequent (G0439) Est Pt Level 4 (22640) Diagnoses Encounter for Medicare annual wellness exam Z00.00 Essential hypertension I10 Hypertension type: essential hypertension Pure hypercholesterolemia E78.00 Hyperlipidemia type: pure hypercholesterolemia Postablative hypothyroidism E89.0 Hypothyroidism type: postablative Thyroid nodule E04.1 Scoliosis of thoracic spine, unspecified scoliosis type M41.9 Scoliosis type: unspecified scoliosis Strain of left calf muscle S86.812A Age-related osteoporosis without current pathological fracture M81.0 Osteoporosis type: age-related Presence of current pathological fracture: without current pathological fracture Bacteriuria with pyuria R82.71; R82.81 Colon cancer screening Z12.11
== END 2024-03-02 09:43 | disposition home or self-care (01) ==
PROVIDERS: PCP Internal Medicine; Visit Provider Internal Medicine
DX: Z00.00 Encounter for general adult medical examination without abnormal findings (principal); I10 Essential (primary) hypertension; E78.00 Pure hypercholesterolemia, unspecified; E89.0 Postprocedural hypothyroidism; E04.1 Nontoxic single thyroid nodule; M41.9 Scoliosis, unspecified; S86.812A Strain of other muscle(s) and tendon(s) at lower leg level, left leg, initial encounter; M81.0 Age-related osteoporosis without current pathological fracture; R82.71 Bacteriuria; R82.81 Pyuria; Z12.11 Encounter for screening for malignant neoplasm of colon
CPT/HCPCS: 99214; G0439

== ENCOUNTER 2024-04-12 07:53 | Outpatient (AMB) | payer MEDICARE, OTHER, SELFPAY ==
[2024-04-12 07:55] VITALS: BP 152/80; PULSE 69; BMI 26.0
--- NOTE | 2024-04-12 07:55 | MHC.OFFVIS ---
Vital Signs 04/12/24 07:55 Height 5 ft 2 in Weight 141 lb 15.643 oz BMI 26.0 BP 152/80 H Blood Pressure Location Lt brachial Position Sitting Pulse 69 Pulse Source Pulse Oximeter Intake Visit Reasons: f/u hypothyroidism, MNG, osteoporosis Intake Note: Patient present today for hypothyroidism, MNG and osteoporosis follow up visit. Agency Service Representative Required: No Accompanied by: Self / Same As Patient Allergies risedronate sodium Adverse Reaction (Intermediate, Verified 04/12/24 07:59) muscle pain and dizziness Medication List - Last Reconciled 04/12/24 by Balwinder Rueda MD atorvastatin 10 mg PO DAILY 90 days blood pressure monitor As directed bupropion HCl XL 150 mg PO QAM 90 days hydroxyzine HCl 25 mg PO TID PRN 30 days levothyroxine 62.5 mcg (1/2 x 125 mcg) PO DAILY 30 days lisinopril-hydrochlorothiazide 20-25 mg 1 tab PO DAILY 90 days multivitamin 1 tab PO DAILY nitrofurantoin monohyd/m-cryst 100 mg 100 mg PO Q12H 7 days [RIGHT WRIST SPLINT As directed] tizanidine 4 mg PO TID PRN 30 days tramadol 50 mg PO TID PRN HPI Comments Details: 78 yo female today for fup visit, last seen on 11/03/2020 for hypothyroidism and nodules evaluation. . She had fine-needle aspiration on 04/05/2019 of left mid and left lower pole nodules. Left mid pole nodule cytology was consistent with benign follicular nodule, [place] category 2. Left lower pole nodule was nondiagnostic. We new that we did not have enough follicular cells the day of the procedure. Patient was very uncomfortable despite using lidocaine for anesthesia. She did not allow me to continue doing passes. She is on Boniva for osteoporosis. She has a good method of administration. On Boniva for 3 yrs. Recent DEXA showed borderline osteoporosis with improvement in bone density since baseline She had benign FNA of left nodule on 03/09/18, consistent with follicular nodule. She is currently on 125 mg 1/2 tab every day, she is 100 % adherent, she has a good method of administrations. She has a PMH of a toxic multinodular goiter, she was initially treated with right hemithyroidectomy she does not remember the date, she did not became euthyroid after hemithyroidectomy, she was treated with [place], she become hypothyroid. She still has nodules on left thyroid, she had last FNA few years. Benign as per patient. She has Other PMH of HTN and dyslipidemia, osteoporosis, she did no tolerated bisphosphonates , has not been on treatment. Denies cold or heat intolerance, her weight is stable. She denies diarrhea, constipation, insomnia, fatigue, dry skin, denies dysphagia, dyspnea, dysphonia, tremors, palpitations, irritability, anxiety. 10/04/17 DEXA scan AP SPINE L1-L4: Current: BMD 0.794 g/cm2, Z-score -1.6, T-score -3.2, osteoporosis, 6.0% decrease from baseline (<5% change is not significant). Baseline: BMD 0.845 g/cm2. LEFT FEMUR, NECK: Current: BMD 0.647 g/cm2, Z-score -1.1, T-score -2.8, osteoporosis. Baseline: BMD 0.716 g/cm2. LEFT FEMUR, TOTAL: Current: BMD 0.793 g/cm2, Z-score -0.2, T-score -1.7, osteopenia, 0.9% decrease from baseline (<5% change is not significant). Baseline: BMD 0.800 g/cm2. 09/29/2020 US THYROID Right Thyroid Lobe: Surgically absent. Left Thyroid Lobe: 4.6 x 2.5 x 2.3 cm, volume 14.2 mL. Previously 4.7 x 2.8 x 2.3 cm, volume 15.8 mL. Parenchyma: The gland echotexture is heterogeneous. Thyroid vascularity is increased. Isthmus: Surgically absent. Estimated total number of nodules greater than or equal to 1 cm: 1. 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 Location: Left mid. Size: 3.0 x 2.3 x 2.3 cm, volume 8.0 mL. Previously: 3.2 x 2.5 x 2.4 cm, volume 10.4 mL. Nodule characteristics: Composition: Solid/almost completely solid (2). Echogenicity: Hypoechoic (2). Shape: Not taller than wide (0). Margins: Smooth (0). Echogenic Foci: Punctate echogenic foci (3). ACR TI-RADS total points: 7 ACR TI-RADS category: 5 Significant change in size (>/= 20% in 2 dimensions and minimal increase of 2 mm): 7 Change in features: None Change in ACR TI-RADS risk category: 5 2. Location: Left inferior. Size: 0.8 x 0.8 x 0.9 cm, volume 0.3 mL. Previously: 1.2 x 1.0 x 1.1 cm, volume 0.7 mL. Nodule characteristics: Composition: Cannot be determined (2). Echogenicity: Cannot be determined (1). Shape: Not taller than wide (0). Margins: Smooth (0). Echogenic Foci: Macrocalcifications (1). ACR TI-RADS total points: 4 ACR TI-RADS category: 4 Significant change in size (>/= 20% in 2 dimensions and minimal increase of 2 mm): Slightly improved in size. Change in features: None Change in ACR TI-RADS risk category: None 3. Location: Left inferior. Size: 0.6 x 0.5 x 0.7 cm, volume 0.1 mL. Previously: Not documented on the prior study. cm. Nodule characteristics: Composition: Cannot be determined (2). Echogenicity: Cannot be determined (1). Shape: Not taller than wide (0). Margins: Smooth (0). Echogenic Foci: None (0). ACR TI-RADS total points: 3 ACR TI-RADS category: 3 Significant change in size (>/= 20% in 2 dimensions and minimal increase of 2 mm): None Change in features: None. Change in ACR TI-RADS risk category: None. NODES: No lymphadenopathy is seen in the tissue surrounding the thyroid gland. Laboratory Tests 10/13/20 10/17/20 07:40 07:28 Creatinine 0.66 Estimated GFR > 60 Calcium 9.3 Albumin 4.3 25-OH Vitamin D Total 33.2 TSH 1.80 Free T4 1.11 No fx since last visit . Occasional dysphagia [facility] Medical History (Updated 03/02/24 @ 09:53 by Eids Blanco MD) Anxiety Exertional dyspnea Left-sided thoracic back pain Non-toxic multinodular goiter Impaired fasting glucose Osteoporosis Scoliosis of thoracic spine Benign hematuria Thyroid nodule Hypothyroidism Hyperlipidemia Hypertension Surgical History (Updated 03/02/24 @ 09:11 by Edis Blanco MD) History of cosmetic plastic surgery Family History Father No problems noted. Mother Diabetes Social History Housing: House Alcohol intake: current Alcohol intake frequency: a few times a month Alcohol type: wine Patient Tobacco Use Status: Former Tobacco user Tobacco use type: Cigarette e-Cigarette/Vaping Use: Currently Using Second Hand Smoke Exposure: Yes service: No Current occupational status: retired Cognitive needs: No Hearing needs: No Vision needs: No Physical Exam Const Other: There is a scar status post right lobectomy . There are no thyroid nodules palpated in the left lobe. There is no cervical adenopathy palpated. There is no tenderness on palpation of the vertebral spine Assessment & Plan Assessment & Plan (1) Osteoporosis: Code(s): M81.0 - Age-related osteoporosis without current pathological fracture Category: Medical Qualifiers: Osteoporosis type: age-related Presence of current pathological fracture: without current pathological fracture Qualified Code(s): M81.0 - Age-related osteoporosis without current pathological fracture Plan: Had negative partial secondary workup. Is currently on ibandronate 150 mg Q monthly. She has been on Ibandrnate for 3 yrs . Repeat DEXA showed borderline osteoporosis with improvement baseline. Secondary workup is negative. Currently on a drug holiday with calcium and vitamin-D Plan is to check urine NTX. If continues to remain suppressed, would continue to follow off pharmacologic therapy until 10/2024 next bone density is due (2) Thyroid nodule: Code(s): E04.1 - Nontoxic single thyroid nodule Category: Medical Plan: Status post FNA of left midpole nodule with benign cytology in the past. Repeat thyroid ultrasound showed stability in the size of the nodules Will repeat thyroid ultrasound in 2-3 years time (3) Hypothyroidism: Code(s): E03.9 - Hypothyroidism, unspecified Category: Medical Qualifiers: Hypothyroidism type: postablative Qualified Code(s): E89.0 - Postprocedural hypothyroidism Plan: Clinically and biochemically euthyroid on 62.5 mcg of levothyroxine. Appears clinically biochemically euthyroid Plan is to continue the current therapy. Orders: Orders Collagen Crosslinks NTX Today M81.0 - Age-related osteoporosis without current pathological fracture XR DEXA axial skeleton 7 Months M81.0 - Age-related osteoporosis without current pathological fracture Coding Level of Care Code Est Pt Level 3 (43694) Diagnoses Age-related osteoporosis without current pathological fracture M81.0 Osteoporosis type: age-related Presence of current pathological fracture: without current pathological fracture Thyroid nodule E04.1 Postablative hypothyroidism E89.0 Hypothyroidism type: postablative
== END 2024-04-12 08:25 | disposition home or self-care (01) ==
PROVIDERS: PCP Internal Medicine; Visit Provider Internal Medicine Endocrinology, Diabetes & Metabolism
DX: M81.0 Age-related osteoporosis without current pathological fracture (principal); E04.1 Nontoxic single thyroid nodule; E89.0 Postprocedural hypothyroidism
CPT/HCPCS: 99213

== ENCOUNTER → 2024-04-12 07:53 | Outpatient (BNVA) | payer MEDICARE, OTHER, SELFPAY | PROVIDERS: PCP Internal Medicine; Visit Provider Internal Medicine Endocrinology, Diabetes & Metabolism | DX: M81.0 Age-related osteoporosis without current pathological fracture (principal); E04.1 Nontoxic single thyroid nodule; E89.0 Postprocedural hypothyroidism; Z79.83 Long term (current) use of bisphosphonates | CPT/HCPCS: 99212 ==

== ENCOUNTER 2024-06-21 12:32 | Outpatient (AMB) | payer MEDICARE, OTHER, SELFPAY ==
[2024-06-21 12:35] VITALS: BP 136/82; PULSE 76; O2SAT 99; BMI 26.1
--- NOTE | 2024-06-21 12:35 | A.OFFPC_ITS ---
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 Accompanied by: Self / Same As Patient Allergies risedronate sodium Adverse Reaction (Intermediate, Verified 06/21/24 12:56) muscle pain and dizziness Medication List - Last Reconciled 06/21/24 by Edis Blanco MD atorvastatin 10 mg PO DAILY 90 days blood pressure monitor As directed bupropion HCl XL 150 mg PO QAM 90 days hydroxyzine HCl 25 mg PO TID PRN 30 days levothyroxine 62.5 mcg (1/2 x 125 mcg) PO DAILY 30 days lisinopril-hydrochlorothiazide 20-25 mg 1 tab PO DAILY 90 days multivitamin 1 tab PO DAILY nitrofurantoin monohyd/m-cryst 100 mg 100 mg PO Q12H 7 days [RIGHT WRIST SPLINT As directed] tizanidine 4 mg PO TID PRN 30 days tramadol 50 mg PO TID PRN Tobacco use date assessed: 06/21/24 Fall risk assessment: No Falls in past year Last assessed Fall Risk: 06/21/24 Dental Screening Dental Screen Date: 06/21/24 Did you have a dental visit in the last 12 months?: No Did you have a dental problem in the last 6 months where you did not have access to dental care?: No Was dental information given to patient?: No HPI [place] cataract surgery, RT 07/03 and LT 08/06 HPI Details Patient comes in today at the request of [facility] for a preoperative medical examination for clearance for surgery She is scheduled for cataract extraction/phacoemulsification with IOL under MAC of the right eye on 07/03/2024, followed by the same procedure on the left eye a few weeks later on 08/06/2024 Patient states that she has been experiencing increased pain over her back for a few weeks now, especially on her left side States that she just cannot seem to get comfortable whether she is standing, sitting or lying down Patient feels that her back pain has been going on for some time now and she is starting to worry if there is anythiing else going on with her back - she does have a history of scoliosis but has not had any imaging studies done in a few years now She denies any headaches or dizziness Denies any chest pains; relates (+) SOB at times with increased exertion No nausea/vomiting, no abdominal pain No change in bowel habits noted [facility] Medical History (Updated 06/21/24 @ 18:02 by Edis Blanco MD) Acquired hypothyroidism Mixed hyperlipidemia Essential hypertension Anxiety Exertional dyspnea Left-sided thoracic back pain Non-toxic multinodular goiter Impaired fasting glucose Osteoporosis Scoliosis of thoracic spine Benign hematuria Thyroid nodule Hypothyroidism Hyperlipidemia Hypertension Surgical History History of cosmetic plastic surgery Family History Father No problems noted. Mother Diabetes Social History Housing: House Alcohol intake: current Alcohol intake frequency: a few times a month Alcohol type: wine Patient Tobacco Use Status: Former Tobacco user Tobacco use type: Cigarette e-Cigarette/Vaping Use: Currently Using Second Hand Smoke Exposure: Yes service: No Current occupational status: retired Cognitive needs: No Hearing needs: No Vision needs: No Questionnaire PHQ-9 Over the last 2 weeks, how often have you been bothered by any of the following problems? 1. Little interest or pleasure in doing things: not at all 2. Feeling down, depressed, or hopeless: not at all 3. Trouble falling or staying asleep, or sleeping too much: not at all 4. Feeling tired or having little energy: not at all 5. Poor appetite or overeating: not at all 6. Feeling bad about yourself - or that you are a failure or have let yourself or your family down: not at all 7. Trouble concentrating on things, such as reading the newspaper or watching television: not at all 8. Moving or speaking so slowly that other people could have noticed. Or the opposite - being so fidgety or restless that you have been moving around a lot more than usual: not at all 9. Thoughts that you would be better off or of hurting yourself in some way: not at all Total score: 0 Depression Screening Interpretation: Negative Depression Screening Done: Yes 59821 - PHQ-9 Billing: Yes Source: Developed by Drs. Balwinder Crane, Babita Gaston, Adalid Hawthorne and colleagues, with an educational jaylen from [employer]. Thrive Questionnaire Date Thrive assessed: 06/21/24 I am a: Patient What is your living situation today?: I have a steady place to live Within the past 12 months, did the food you bought not last and you didn't have the money to get more?: Never true Within the past 12 months, did you worry whether your food would run out before you got money to buy more?: Never true Do you have trouble paying for medicines?: No Do you have trouble getting transportation to medical appointments?: No Do you have trouble paying your heating and electricity bill?: No Do you have trouble taking care of your child, family member or friend?: No Do you have trouble with day-to-day activities such as bathing, preparing meals, shopping, managing finances, etc.?: No Are you currently unemployed and looking for a job?: No Are you interested in more education?: No Please select the resources that you would like help with: None Currently or been in a relationship where the following occur: No concerns reported THRIVE Score: 0 AUDIT C Alcohol Use Questionnaire (AUDIT-C) 1. How often do you have a drink containing alcohol?: Never 3. How often do you have six or more drinks on one occasion?: Never Total Score: 0 Score Reviewed/Action Taken: Yes POLLY-7 AMB Questionnaire POLLY-7 Date POLLY - 7 assessed: 06/21/24 Feeling nervous, anxious, or on edge: 0 = Not at all Not being able to stop or control worryin = Not at all Worrying too much about different things: 0 = Not at all Trouble relaxin = Not at all Being so restless that it is hard to sit still: 0 = Not at all Becoming easily annoyed or irritable: 0 = Not at all Feeling afraid as if something awful might happen: 0 = Not at all Total POLLY-7 score (0-4 normal; 5-9 mild; 10-14 moderate; 15-21 severe): 0 Source: Developed by Drs. Balwinder Crane, Babita Gsaton, Adalid Hawthorne and colleagues, with an educational jaylen from [employer]. Review of Systems Const Denies chills, Denies fatigue, Denies fever(s) and Denies headache(s) Eyes Reports blurry vision (bilaterally) ENT Denies dysphagia, Denies dizziness, Denies otalgia, Denies headache(s), Denies neck pain, Denies odynophagia and Denies sore throat Card Denies chest pain, Denies palpitations and Reports dyspnea on exertion (mild) Resp Denies chest congestion, Denies cough and Reports dyspnea on exertion (mild) GI Denies abdominal pain, Denies constipation, Denies dysphagia, Denies heartburn, Denies diarrhea, Denies nausea, Denies odynophagia and Denies vomiting Denies difficulty voiding, Denies nocturia and Denies urinary urgency Musc Reports back pain (increased lately, especially over the left side) and Denies neck pain Skin/Breast Denies rash Neuro Denies dizziness and Denies headache(s) Psych Reports anxiety (controlled on Rx) Endo Denies fatigue and Denies palpitations Physical exam (Primary Care) Vital Signs: Last Vital Signs Pulse 76 06/21/24 12:35 BP 136/82 06/21/24 12:35 Pulse Ox 99 06/21/24 12:35 Oxygen Delivery Method Room Air 06/21/24 12:35 BMI result Body Mass Index 26.1 Tobacco/Smoking Status: Tobacco use Status Tobacco use date assessed 06/21/24 06/21/24 12:42 Patient Tobacco Use Status Former Tobacco user 06/21/24 12:42 Tobacco use type Cigarette 06/21/24 12:42 e-Cigarette/Vaping Use Currently Using 06/21/24 12:42 PHQ-9: PHQ-9 Score PHQ-9: Total score 0 06/21/24 14:13 Depression Screening Interpretation: Negative Thrive Assessment: Date of Thrive Assessment Date Thrive assessed 06/21/24 06/21/24 12:42 Currently or been in a relationship where the following occur: No concerns reported Const General: no acute distress and alert HENMT Ears: TM's normal bilaterally and EAC's normal Throat: Yes posterior oropharynx normal and Yes tonsils normal (no TP congestion noted) Neck Neck: Yes no lymphadenopathy and Yes supple Resp Auscultation: clear to auscultation bilaterally, no rales and no wheezes Cardio Rate: regular rate Rhythm: regular rhythm Heart sounds: no murmurs GI Palpation (GI): Soft to palpation and nontender Auscultation: normal bowel sounds Back/Spine/Pelvis Thoracic/Lumbar Spine: paraspinal muscle tenderness on the left in the mid th oracic (just under the left scapula, mild) and Thoracic/lumbar scoliosis Skin Rashes: no rashes Extrem General: Yes no clubbing, cyanosis or edema Coding Level of Care Code Est Pt Level 4 (05713) Diagnoses Preoperative examination Z01.818 Cataract of both eyes, unspecified cataract type H26.9 Cataract type: unspecified Essential hypertension I10 Mixed hyperlipidemia E78.2 Acquired hypothyroidism E03.9 Thyroid nodule E04.1 Age-related osteoporosis without current pathological fracture M81.0 Osteoporosis type: age-related Presence of current pathological fracture: without current pathological fracture Exertional dyspnea R06.00 Scoliosis of thoracic spine, unspecified scoliosis type M41.9 Scoliosis type: unspecified scoliosis Left-sided thoracic back pain, unspecified chronicity M54.6 Chronicity: unspecified Anxiety F41.9 Assessment & Plan Assessment & Plan (1) Preoperative examination: Code(s): Z01.818 - Encounter for other preprocedural examination Category: Medical Plan: Patient presents with acceptable risks for planned low cardiac risk procedure She has no history of any significant pulmonary or cardiac issues, and currently has no contraindications to undergo planned procedures (2) Cataracts, bilateral: Code(s): H26.9 - Unspecified cataract Category: Medical Qualifiers: Cataract type: unspecified Qualified Code(s): H26.9 - Unspecified cataract Plan: She is scheduled for cataract extraction/phacoemulsification with IOL under MAC of the right eye on 07/03/2024, followed by the same procedure on the left eye a few weeks later on 08/06/[address] Darwin Ya (3) Essential hypertension: Code(s): I10 - Essential (primary) hypertension Category: Medical Plan: Reinforced low sodium diet - goal is systolic BP of at least 130 to 140 mm Continue Lisinopril-HCT 20-25 mg QD (4) Mixed hyperlipidemia: Code(s): E78.2 - Mixed hyperlipidemia Category: Medical Plan: Reinforced low cholesterol diet Continue on Atorvastatin 10 mg QD (5) Acquired hypothyroidism: Code(s): E03.9 - Hypothyroidism, unspecified Category: Medical Plan: Continue Levothyroxine 125 mcg 1/2 tablet QD (6) Thyroid nodule: Code(s): E04.1 - Nontoxic single thyroid nodule Category: Medical Plan: Thyroid biopsy done by Dr. Berry in 2019 came back benign - benign follicular nodule Follow-up sonogram done in May 2022 showed stable thyroid nodules with no significant change from previous and recommend continuing surveillance Follow-up with endocrinology as scheduled (7) Osteoporosis: Code(s): M81.0 - Age-related osteoporosis without current pathological fracture Category: Medical Qualifiers: Osteoporosis type: age-related Presence of current pathological fracture: without current pathological fracture Qualified Code(s): M81.0 - Age- related osteoporosis without current pathological fracture Plan: Repeat BMD done on 11/09/2022 showed (+) osteoporosis with no significant change from previous - lowest T-score value is -2.5 in the lumbar spine Patient was unable to tolerate Risedronate but has been tolerating Ibandronate without any problems Was on Ibandronate 150 mg once a month for about 3 years and this was stopped by Dr. Rueda last March 2023 for a drug holiday period He ordered a repeat BMD for mid-2024 for follow up Follow up with Dr. Rueda as scheduled (8) Exertional dyspnea: Code(s): R06.00 - Dyspnea, unspecified Category: Medical Plan: Have discussed with patient that this is likely related to her scoliosis, which if significant can cause reduced lung capacity Will send her for chest x-rays for further evaluation and to r/o any intrinsic lung issues (9) Scoliosis of thoracic spine: Code(s): M41.9 - Scoliosis, unspecified Category: Medical Qualifiers: Scoliosis type: unspecified scoliosis Qualified Code(s): M41.9 - Scoliosis, unspecified Plan: Patient has been mostly asymptomatic over the years with only (+) occasional low back pain although she reports experiencing increased pain over her left thoracic area recently for a while now Will send her for updated thoracic spine x-rays for further evaluation (10) Left-sided thoracic back pain: Code(s): M54.6 - Pain in thoracic spine Category: Medical Qualifiers: Chronicity: unspecified Qualified Code(s): M54.6 - Pain in thoracic spine Plan: Discussed with patient that this is likely muscular/myofascial pain related to her scoliosis Will send her for updated thoracic spine x-rays for further evaluation Will also start her back on Tizanidine 4 mg TID PRN and continue Tramadol 50 mg TID PRN for pain (11) Anxiety: Code(s): F41.9 - Anxiety disorder, unspecified Category: Medical Plan: Continue Hydroxyzine 25 mg TID PRN Plan Patient is currently medicallly optimized and has no contraindication to undergo planned procedures on both eyes - she is CLEARED FOR CATARACT SURGERIES as scheduled Follow up in early November 2024 Orders: Orders XR chest 2V Today R06.00 - Dyspnea, unspecified Lipid Panel 11/24/24 E78.00 - Pure hypercholesterolemia, unspecified Comprehensive [place]. Panel Fast 11/24/24 E78.00 - Pure hypercholesterolemia, unspecified Thyroid Stimulating Hormone 11/24/24 E03.9 - Hypothyroidism, unspecified Free T4 (Free Thyroxine) 11/24/24 E03.9 - Hypothyroidism, unspecified UA CC w/rflx Micro + Cult 11/24/24 R30.0 - Dysuria XR thoracic spine 3V Today M54.9 - Dorsalgia, unspecified XR lumbar spine 2-3V Today M54.50 - Low back pain, unspecified Complete Blood Count Auto Diff 11/24/24 D64.9 - Anemia, unspecified Vitamin D 25-OH Total 11/24/24 E55.9 - Vitamin D deficiency, unspecified Medications: Refilled tizanidine 4 mg PO TID 30 days PRN 90 tabs 1RF muscle spasticity M54.6 - Pain in thoracic spine
== END 2024-06-21 13:06 | disposition home or self-care (01) ==
LOC: HO.HMCH 12:33
PROVIDERS: PCP Internal Medicine; Visit Provider Internal Medicine
DX: Z01.818 Encounter for other preprocedural examination (principal); H26.9 Unspecified cataract; I10 Essential (primary) hypertension; E78.2 Mixed hyperlipidemia; E03.9 Hypothyroidism, unspecified; E04.1 Nontoxic single thyroid nodule; M81.0 Age-related osteoporosis without current pathological fracture; R06.00 Dyspnea, unspecified; M41.9 Scoliosis, unspecified; M54.6 Pain in thoracic spine; F41.9 Anxiety disorder, unspecified

== ENCOUNTER → 2024-06-21 12:32 | Outpatient (BNVA) | payer MEDICARE, OTHER, SELFPAY | PROVIDERS: PCP Internal Medicine; Visit Provider Internal Medicine | DX: Z01.818 Encounter for other preprocedural examination (principal); H26.9 Unspecified cataract; I10 Essential (primary) hypertension; E78.2 Mixed hyperlipidemia; E03.9 Hypothyroidism, unspecified; E04.1 Nontoxic single thyroid nodule; M81.0 Age-related osteoporosis without current pathological fracture; R06.00 Dyspnea, unspecified; M41.9 Scoliosis, unspecified; M54.6 Pain in thoracic spine; F41.9 Anxiety disorder, unspecified | CPT/HCPCS: 96127; 99212 ==

== ENCOUNTER 2024-11-13 08:27 | Outpatient (REF) | payer MEDICARE, OTHER, SELFPAY ==
--- NOTE | ~2024-11-13 | MM_ITS ---
EXAMINATION: DXA BONE DENSITY AXIAL HISTORY: Estrogen deficiency TECHNIQUE: CoinSeed Dual energy absorptiometry (DEXA) of the lumbar spine, total left hip, and femoral neck was performed. COMPARISON: Comparison is made with the prior examination dated 11/09/2022. FINDINGS: The bone mineral density of the lumbar spine is 0.919 with a T-score of -2.2, and a Z-score of -0.3. This is indicative of osteopenia. This represents a BMD change of 3.7% compared to the prior exam. This is statistically significant. The bone mineral density of the left total hip is 0.809 with a T-score of -1.6, and a Z-score of 0.4. This is indicative of osteopenia. This represents a BMD change of -1.0% compared to the prior exam. This is not statistically significant. The bone mineral density of the left femoral neck is 0.673 with a T-score of -2.6, and a Z-score of -0.5. This is indicative of osteoporosis. This represents a BMD change of -6.8% compared to the prior exam. FRACTURE RISK: The FRAX index suggests a ten year probability of major osteoporotic fracture of 20.2%, and of hip fracture 7.3%. MM/XR DEXA axial skeleton IMPRESSION: Based on bone mineral density, and according to World Health Organization (WHO) criteria, the diagnosis is consistent with osteoporosis. All bone density values are in grams per centimeter squared (g/cm2). Statistically, 68% of repeat scans fall within 1 SD (+/- 0.010 g/cm2 for AP spine L1-L4) and 1 SD (+/- 0.012 g/cm2 for femur total) FRAX is a trademark of the [employer] [employer] [facility], a World Health Organization (WHO) Collaborating Center. Electronically signed by: Balwinder Zamudio MD 11/13/2024 09:36 AM EDT
== END 2024-11-13 08:28 | disposition home or self-care (01) ==
LOC: HO.MAMMO 08:27
PROVIDERS: PCP Internal Medicine; Visit Provider Internal Medicine Endocrinology, Diabetes & Metabolism
DX: M81.0 Age-related osteoporosis without current pathological fracture (principal)
CPT/HCPCS: 77080

== ENCOUNTER → 2024-11-13 08:45 | Outpatient (BNV) | payer MEDICARE, OTHER, SELFPAY | PROVIDERS: PCP Internal Medicine; Visit Provider Radiology Diagnostic Radiology | DX: E28.39 Other primary ovarian failure (principal) | CPT/HCPCS: 77080 ==

== ENCOUNTER 2024-11-27 07:10 | Outpatient (REF) | payer MEDICARE, OTHER, SELFPAY ==
[2024-11-27 08:02] LABS: Appearance Urine Cloudy; Color Urine Yellow; Glucose Urine UA Negative (Negative); Leukocyte Esterase Urine Large (3+) (Negative); Nitrite Urine Negative (Negative); PH 5.5 (5.0-9.0); Specific Gravity - Urine 1.015 (1.005-1.025); UMIC TRIGGER UACC YES; Urine Blood Small (1+) (Negative); Urine Ketones Negative (Negative); Urine Protein Negative (Neg-Trace)
[2024-11-27 08:19] LABS: Bacteria Urine 4+ (None Seen); Hyaline Casts Urine 0-2 /LPF (0-2); RBC Urine 0-2 /HPF (0-2); Squamous Epithelial Cell Urine 0-2 /HPF (0-2); UACC Culture Trigger YES; WBC Urine 21-50 /HPF (0-5)
[2024-11-30 20:58] LABS: N-Telopeptide 20 (see note); NTXCreaRU 104 mg/dL (20-275)
== END 2024-11-27 07:11 | disposition home or self-care (01) ==
LOC: HO.LAB 07:10
PROVIDERS: PCP Internal Medicine; Visit Provider Internal Medicine Endocrinology, Diabetes & Metabolism
DX: M81.0 Age-related osteoporosis without current pathological fracture (principal); R30.0 Dysuria
CPT/HCPCS: 81001; 81003; 82523; 87086; 87088; 87186

== ENCOUNTER 2024-12-05 07:55 | Outpatient (AMB) | payer MEDICARE, OTHER, SELFPAY ==
[2024-12-05 08:00] VITALS: BP 134/84; PULSE 77; O2SAT 97; BMI 26.4
--- NOTE | 2024-12-05 08:00 | A.OFFVIS_ITS ---
Vital Signs 12/05/24 08:00 Height 5 ft 2 in Weight 144 lb 6.444 oz BMI 26.4 BP 134/84 Blood Pressure Location Lt brachial Position Sitting Pulse 77 Pulse Source Pulse Oximeter Pulse Oximetry (%) 97 Oxygen Delivery Method Room Air Intake Visit Reasons: f/u osteoporosis/MNG/hypothyroidism Intake Note: Patient present today for hypothyroidism, MNG and osteoporosis follow up visit. Business Insurance Agent Required: No Accompanied by: Self / Same As Patient Allergies risedronate sodium Adverse Reaction (Intermediate, Verified 12/05/24 08:05) muscle pain and dizziness HPI Comments Details: 79 yo female today for fup visit, last seen on 11/03/2020 for osteoporosis, hypothyroidism and nodules evaluation. . She had fine-needle aspiration on 04/05/2019 of left mid and left lower pole nodules. Left mid pole nodule cytology was consistent with benign follicular nodule, [place] category 2. Left lower pole nodule was nondiagnostic. We new that we did not have enough follicular cells the day of the procedure. Patient was very uncomfortable despite using lidocaine for anesthesia. She did not allow me to continue doing passes. She is on Boniva for osteoporosis. She has a good method of administration. On Boniva for 3 yrs. Recent DEXA showed borderline osteoporosis with improvement in bone density since baseline She had benign FNA of left nodule on 03/09/18, consistent with follicular nodule. She is currently on 125 mcg 1/2 tab every day, she is 100 % adherent, she has a good method of administrations. She has a PMH of a toxic multinodular goiter, she was initially treated with right hemithyroidectomy she does not remember the date, she did not became euthyroid after hemithyroidectomy, she was treated with [place], she become hypothyroid. She still has nodules on left thyroid, she had last FNA few years. Benign as per patient. She has Other PMH of HTN and dyslipidemia, osteoporosis, she did no tolerated bisphosphonates , has not been on treatment. Denies cold or heat intolerance, her weight is stable. She denies diarrhea, constipation, insomnia, fatigue, dry skin, denies dysphagia, dyspnea, dysphonia, tremors, palpitations, irritability, anxiety. 10/04/17 DEXA scan AP SPINE L1-L4: Current: BMD 0.794 g/cm2, Z-score -1.6, T-score -3.2, osteoporosis, 6.0% decrease from baseline (<5% change is not significant). Baseline: BMD 0.845 g/cm2. LEFT FEMUR, NECK: Current: BMD 0.647 g/cm2, Z-score -1.1, T-score -2.8, osteoporosis. Baseline: BMD 0.716 g/cm2. LEFT FEMUR, TOTAL: Current: BMD 0.793 g/cm2, Z-score -0.2, T-score -1.7, osteopenia, 0.9% decrease from baseline (<5% change is not significant). Baseline: BMD 0.800 g/cm2. 09/29/2020 US THYROID Right Thyroid Lobe: Surgically absent. Left Thyroid Lobe: 4.6 x 2.5 x 2.3 cm, volume 14.2 mL. Previously 4.7 x 2.8 x 2.3 cm, volume 15.8 mL. Parenchyma: The gland echotexture is heterogeneous. Thyroid vascularity is increased. Isthmus: Surgically absent. Estimated total number of nodules greater than or equal to 1 cm: 1. [employer] nodules are described as follows: 1. Location: Left mid. Size: 3.0 x 2.3 x 2.3 cm, volume 8.0 mL. Previously: 3.2 x 2.5 x 2.4 cm, volume 10.4 mL. Nodule characteristics: Composition: Solid/almost completely solid (2). Echogenicity: Hypoechoic (2). Shape: Not taller than wide (0). Margins: Smooth (0). Echogenic Foci: Punctate echogenic foci (3). ACR TI-RADS total points: 7 ACR TI-RADS category: 5 Significant change in size (>/= 20% in 2 dimensions and minimal increase of 2 mm): 7 Change in features: None Change in ACR TI-RADS risk category: 5 2. Location: Left inferior. Size: 0.8 x 0.8 x 0.9 cm, volume 0.3 mL. Previously: 1.2 x 1.0 x 1.1 cm, volume 0.7 mL. Nodule characteristics: Composition: Cannot be determined (2). Echogenicity: Cannot be determined (1). Shape: Not taller than wide (0). Margins: Smooth (0). Echogenic Foci: Macrocalcifications (1). ACR TI-RADS total points: 4 ACR TI-RADS category: 4 Significant change in size (>/= 20% in 2 dimensions and minimal increase of 2 mm): Slightly improved in size. Change in features: None Change in ACR TI-RADS risk category: None 3. Location: Left inferior. Size: 0.6 x 0.5 x 0.7 cm, volume 0.1 mL. Previously: Not documented on the prior study. cm. Nodule characteristics: Composition: Cannot be determined (2). Echogenicity: Cannot be determined (1). Shape: Not taller than wide (0). Margins: Smooth (0). Echogenic Foci: None (0). ACR TI-RADS total points: 3 ACR TI-RADS category: 3 Significant change in size (>/= 20% in 2 dimensions and minimal increase of 2 mm): None Change in features: None. Change in ACR TI-RADS risk category: None. NODES: No lymphadenopathy is seen in the tissue surrounding the thyroid gland. Laboratory Tests 10/13/20 10/17/20 07:40 07:28 Creatinine 0.66 Estimated GFR > 60 Calcium 9.3 Albumin 4.3 25-OH Vitamin D Total 33.2 TSH 1.80 Free T4 1.11 No fx since last visit . Occasional dysphagia . Off ibandronate with stable bone density and suppressed bone turnover marker The patient is a 79-year-old female presenting with a follow-up regarding her osteoporosis and thyroid function. Her osteoporosis has been under control with calcium and vitamin D, following cessation of bandronate. She reports no fractures since the last assessment and her bone turnover marker remains favorable, indicating the bandronate's continued effect. Bone density was last assessed recently with plans for a reevaluation in two years. Her thyroid condition is managed with levothyroxine, with current doses maintaining adequate levels as confirmed by recent thyroid function tests. She has a history of thyroid surgery and is regularly monitored for any further developments related to her thyroid nodules. She denies any worsening of symptoms, such as choking or new discomfort associated with her back pain, which remains manageable with periodic use of [id number] analgesics. - Calcium and Vitamin D supplement for osteoporosis. - Levothyroxine 62.5 mcg daily for thyroid dysfunction. [facility] Medical History (Updated 06/21/24 @ 18:02 by Edis Blanco MD) Acquired hypothyroidism Mixed hyperlipidemia Essential hypertension Anxiety Exertional dyspnea Left-sided thoracic back pain Non-toxic multinodular goiter Impaired fasting glucose Osteoporosis Scoliosis of thoracic spine Benign hematuria Thyroid nodule Hypothyroidism Hyperlipidemia Hypertension Surgical History History of cosmetic plastic surgery Family History Father No problems noted. Mother Diabetes Social History Housing: House Alcohol intake: current Alcohol intake frequency: a few times a month Alcohol type: wine Patient Tobacco Use Status: Former Tobacco user Tobacco use type: Cigarette e-Cigarette/Vaping Use: Currently Using Second Hand Smoke Exposure: Yes service: No Current occupational status: retired Cognitive needs: No Hearing needs: No Vision needs: No Physical Exam Vital Signs: Last Vital Signs Pulse 77 12/05/24 08:00 BP 134/84 12/05/24 08:00 Pulse Ox 97 12/05/24 08:00 Oxygen Delivery Method Room Air 12/05/24 08:00 BMI result Body Mass Index 26.4 Const Other: There is a scar status post right lobectomy . There are no thyroid nodules palpated in the left lobe. There is no cervical adenopathy palpated. There is no tenderness on palpation of the vertebral spine Assessment & Plan Assessment & Plan (1) Osteoporosis: Code(s): M81.0 - Age-related osteoporosis without current pathological fracture Category: Medical Qualifiers: Osteoporosis type: age-related Presence of current pathological fracture: without current pathological fracture Qualified Code(s): M81.0 - Age- related osteoporosis without current pathological fracture Plan: Had negative partial secondary workup. Is currently on ibandronate 150 mg Q monthly. She has been off Ibandrnate after taking for 3 yrs . Repeat DEXA showed borderline osteoporosis with improvement baseline. Secondary workup is negative. Currently on a drug holiday with calcium and vitamin-D. Urine NTX is suppressed Plan is to continue to follow off pharmacologic therapy . Repeat DEXA can be performed in 2 years time patient's primary care provider and if any significant decline, patient can be referred back to endocrinology or ibandronate can be restarted by patient's primary care provider (2) Thyroid nodule: Code(s): E04.1 - Nontoxic single thyroid nodule Category: Medical Plan: Status post FNA of left midpole nodule with benign cytology in the past. Repeat thyroid ultrasound showed stability in the size of the nodules Will have patient follow up with Dr. Grijalva an semiconductor engineer with expertise in thyroid ultrasound . Multinodular Goiter Continued endocrinological monitoring for multinodular goiter with regular medication ensures stable thyroid hormone levels. A specific follow-up for thyroid ultrasound is scheduled with Dr. Grijalva for detailed nodular assessment and to establish if any change occurs. (3) Hypothyroidism: Code(s): E03.9 - Hypothyroidism, unspecified Category: Medical Qualifiers: Hypothyroidism type: postablative Qualified Code(s): E89.0 - Postprocedural hypothyroidism Plan: Clinically and biochemically euthyroid on 62.5 mcg of levothyroxine. Appears clinically biochemically euthyroid Plan is to continue the current therapy. At this point, in terms of the hypothyroidism the patient can returned to the care of her primary care provider returned back to endocrinology as needed Coding Level of Care Code Est Pt Level 3 (17062) Diagnoses Age-related osteoporosis without current pathological fracture M81.0 Osteoporosis type: age-related Presence of current pathological fracture: without current pathological fracture Thyroid nodule E04.1 Postablative hypothyroidism E89.0 Hypothyroidism type: postablative
== END 2024-12-05 08:22 | disposition home or self-care (01) ==
LOC: HO.ENCR 07:56
PROVIDERS: PCP Internal Medicine; Visit Provider Internal Medicine Endocrinology, Diabetes & Metabolism
DX: M81.0 Age-related osteoporosis without current pathological fracture (principal); E04.1 Nontoxic single thyroid nodule; E89.0 Postprocedural hypothyroidism
CPT/HCPCS: 99213

== ENCOUNTER → 2024-12-05 07:55 | Outpatient (BNVA) | payer MEDICARE, OTHER, SELFPAY | PROVIDERS: PCP Internal Medicine; Visit Provider Internal Medicine Endocrinology, Diabetes & Metabolism | DX: M81.0 Age-related osteoporosis without current pathological fracture (principal); E04.1 Nontoxic single thyroid nodule; E89.0 Postprocedural hypothyroidism | CPT/HCPCS: 99212 ==

== ENCOUNTER 2024-12-18 07:16 | Outpatient (REF) | payer MEDICARE, OTHER, SELFPAY ==
[2024-12-18 07:29] LABS: MANUAL DIFF FLAG NO
[2024-12-18 08:26] LABS: Basophils Percent Auto 0.4 % (0-2); Eosinophils Absolute Auto 0.1 X10*3/uL (0.0-0.4); Eosinophils Percent Auto 1.3 % (0-4); Hematocrit 46.3 % (37.0-47.0); Hemoglobin 15.4 g/dl (12.0-16.0); Imm Gran Abs Auto 0.03 X10*3/uL (0.00-0.03); Imm Gran Pct Auto 0.4 % (0.0-0.4); Lymphocytes Absolute Auto 1.7 X10*3/uL (1.2-4.9); Lymphocytes Percent Auto 23.6 % (20-40); Mean Corpuscular HGB Conc 33.3 g/dl (31.0-35.0); Mean Corpuscular Hemoglobin 30.7 pg (27.0-33.0); Mean Corpuscular Volume 92.4 fL (80.0-98.0); Mean Platelet Volume 10.1 fL (9.4-12.3); Monocytes Absolute Auto 0.6 X10*3/uL (0.1-1.2); Monocytes Percent Auto 7.8 % (2-11); Neutrophils Absolute Auto 4.7 x10*3/uL (2.0-8.3); Neutrophils Percent Auto 66.5 % (45-73); Platelet Count 323 X10*3/uL (160-400); Red Blood Count 5.01 X10*6/uL (4.20-5.50); Red Cell Distribution Width 11.9 % (11.0-16.0); White Blood Count 7.1 X10*3/uL (4.8-10.8)
[2024-12-18 08:29] LABS: Appearance Urine Cloudy; Color Urine Yellow; Glucose Urine UA Negative (Negative); Leukocyte Esterase Urine Small (1+) (Negative); Nitrite Urine Negative (Negative); PH 6.5 (5.0-9.0); UMIC TRIGGER UACC YES; Urine Blood Trace (Negative); Urine Ketones Negative (Negative); Urine Protein Negative (Neg-Trace)
[2024-12-18 08:31] LABS: Bacteria Urine 4+ (None Seen); Hyaline Casts Urine 0-2 /LPF (0-2); Squamous Epithelial Cell Urine 0-2 /HPF (0-2); UACC Culture Trigger YES
[2024-12-18 09:28] LABS: Alanine Aminotransferase 27 U/L (0-31); Albumin Level 4.1 g/dL (3.5-5.0); Alkaline Phosphatase 88 U/L (39-117); Anion Gap 10 (12-20); Aspartate Amino Transferase 26 U/L (5-31); Bilirubin Total 0.5 mg/dL (0.0-1.0); Blood Urea Nitrogen 14 mg/dL (9-16); Calcium 9.3 mg/dL (8.4-10.2); Carbon Dioxide 33 mmol/L (22-29); Chloride 103 mmol/L (96-108); Cholesterol 227 mg/dL (<200); Estimated Glomerular Filt Rate > 60; Free T4 (Free Thyroxine) 0.94 ng/dL (0.71-1.85); Glucose Fasting 92 mg/dL (60-99); HDL Cholesterol 52 mg/dL (>40); LDL Cholesterol Calculated 146 mg/dL (<100); Potassium 4.5 mmol/L (3.3-5.1); Sodium 141 mmol/L (135-145); Thyroid Stimulating Hormone 3.98 uIU/mL (0.32-4.0); Total Protein 7.2 g/dL (6.5-8.0); Triglycerides 149 mg/dL (<150); Vitamin D 25-OH Total 33.6 ng/mL (>30)
== END 2024-12-18 07:17 | disposition home or self-care (01) ==
LOC: HO.LAB 07:16
PROVIDERS: PCP Internal Medicine; Visit Provider Internal Medicine
DX: E55.9 Vitamin D deficiency, unspecified (principal); E78.00 Pure hypercholesterolemia, unspecified; E03.9 Hypothyroidism, unspecified; D64.9 Anemia, unspecified; R30.0 Dysuria
CPT/HCPCS: 36415; 80053; 80061; 81001; 82306; 84439; 84443; 85025; 87086; 87088; 87186

== ENCOUNTER 2024-12-20 07:36 | Outpatient (REF) | payer MEDICARE, OTHER, SELFPAY ==
--- NOTE | ~2024-12-20 | XR_ITS ---
CLINICAL HISTORY: R06.00 - Dyspnea, unspecified 2 view chest x-ray Comparison: None Findings: No consolidation or effusion. Heart size is normal. No acute fracture. There is marked thoracolumbar scoliosis. IMPRESSION: 1. No acute findings. This document has been electronically signed by: Fabiano Lima MD on 12/22/2024 07:37:05
--- NOTE | ~2024-12-20 | XR_ITS ---
CLINICAL HISTORY: M54.9 - Dorsalgia, unspecified 4 views thoracic spine Comparison: None Findings: Marked scoliosis. No acute fractures or dislocation. No significant degenerative change. IMPRESSION: No acute findings. This document has been electronically signed by: Fabiano Lima MD on 12/22/2024 07:41:26
--- NOTE | ~2024-12-20 | XR_ITS ---
CLINICAL HISTORY: M54.50 - Low back pain, unspecified 3 views lumbar spine Comparison: None Findings: Marked scoliosis No acute fractures or dislocation. There is multiple level degenerative facet change. There is aortic calcification. IMPRESSION: No acute findings. This document has been electronically signed by: Fabiano Lima MD on 12/22/2024 07:41:45
== END 2024-12-20 07:37 | disposition home or self-care (01) ==
LOC: HO.XRAY 07:36
PROVIDERS: PCP Internal Medicine; Visit Provider Internal Medicine
DX: M54.50 Low back pain, unspecified (principal); M54.9 Dorsalgia, unspecified; R06.00 Dyspnea, unspecified
CPT/HCPCS: 71046; 72072; 72100

== ENCOUNTER → 2024-12-20 07:39 | Outpatient (BNV) | payer MEDICARE, OTHER, SELFPAY | PROVIDERS: PCP Internal Medicine; Visit Provider Specialist | DX: R06.00 Dyspnea, unspecified (principal); M54.50 Low back pain, unspecified; M54.6 Pain in thoracic spine | CPT/HCPCS: 71046; 72072; 72100 ==

== ENCOUNTER 2024-12-25 09:14 | Outpatient (AMB) | payer MEDICARE, OTHER, SELFPAY ==
[2024-12-25 09:18] VITALS: BP 130/82; PULSE 66; O2SAT 96; BMI 26.2
--- NOTE | 2024-12-25 09:18 | A.OFFPC_ITS ---
Vital Signs 12/25/24 09:18 Height 5 ft 2 in Weight 143 lb BMI 26.2 BP 130/82 Blood Pressure Location Lt brachial Position Sitting Pulse 66 Pulse Source Pulse Oximeter Pulse Oximetry (%) 96 Oxygen Delivery Method Room Air Intake Visit Reasons: 6 month f/u Power [employer] Assistant Required: No Accompanied by: Self / Same As Patient Allergies risedronate sodium Adverse Reaction (Intermediate, Verified 12/25/24 09:35) muscle pain and dizziness Medication List - Last Reconciled 12/25/24 by Edis Blanco MD atorvastatin 10 mg PO DAILY 90 days blood pressure monitor As directed bupropion HCl XL 150 mg PO QAM 90 days hydroxyzine HCl 25 mg PO TID PRN 30 days levothyroxine 62.5 mcg (1/2 x 125 mcg) PO DAILY 30 days lisinopril-hydrochlorothiazide 20-25 mg 1 tab PO DAILY 90 days multivitamin 1 tab PO DAILY nitrofurantoin monohyd/m-cryst 100 mg 100 mg PO Q12H 7 days [RIGHT WRIST SPLINT As directed] tizanidine 4 mg PO TID PRN 30 days tramadol 50 mg PO TID PRN Tobacco use date assessed: 12/25/24 Fall risk assessment: No Falls in past year Last assessed Fall Risk: 12/25/24 Dental Screening Dental Screen Date: 12/25/24 Did you have a dental visit in the last 12 months?: No Did you have a dental problem in the last 6 months where you did not have access to dental care?: No Was dental information given to patient?: No HPI 6 month f/u HPI Details Patient comes in today for her follow up visit States that she feels okay She denies any headaches or dizziness Denies any chest pains but she continues to experience increased SOB with exertion, which she states is starting to limit her daily activities sometimes No nausea/vomiting, no abdominal pain No change in bowel habits noted States that her recurrent low back pain (due to her scoliosis) have been mostly manageable and her Tramadol Rx helps when needed She had her follow up labs done last week - to discuss her results [facility] Medical History (Updated 12/25/24 @ 10:07 by Edis Blanco MD) Lumbar degenerative disc disease Acquired hypothyroidism Mixed hyperlipidemia Essential hypertension Anxiety Exertional dyspnea Left-sided thoracic back pain Non-toxic multinodular goiter Impaired fasting glucose Osteoporosis Scoliosis of thoracic spine Benign hematuria Thyroid nodule Hypothyroidism Hyperlipidemia Hypertension Surgical History History of cosmetic plastic surgery Family History Father No problems noted. Mother Diabetes Social History Housing: House Alcohol intake: current Alcohol intake frequency: a few times a month Alcohol type: wine Patient Tobacco Use Status: Former Tobacco user Tobacco use type: Cigarette e-Cigarette/Vaping Use: Currently Using Second Hand Smoke Exposure: Yes service: No Current occupational status: retired Cognitive needs: No Hearing needs: No Vision needs: No Questionnaire PHQ-9 Over the last 2 weeks, how often have you been bothered by any of the following problems? 1. Little interest or pleasure in doing things: not at all 2. Feeling down, depressed, or hopeless: not at all 3. Trouble falling or staying asleep, or sleeping too much: not at all 4. Feeling tired or having little energy: not at all 5. Poor appetite or overeating: not at all 6. Feeling bad about yourself - or that you are a failure or have let yourself or your family down: not at all 7. Trouble concentrating on things, such as reading the newspaper or watching television: not at all 8. Moving or speaking so slowly that other people could have noticed. Or the opposite - being so fidgety or restless that you have been moving around a lot more than usual: not at all 9. Thoughts that you would be better off or of hurting yourself in some way: not at all Total score: 0 Depression Screening Interpretation: Negative Depression Screening Done: Yes 69350 - PHQ-9 Billing: Yes Source: Developed by Drs. Balwinder Crane, Babita Gaston, Adalid Hawthorne and colleagues, with an educational jaylen from [employer]. Thrive Questionnaire Date Thrive assessed: 12/25/24 I am a: Patient What is your living situation today?: I have a steady place to live Within the past 12 months, did the food you bought not last and you didn't have the money to get more?: Never true Within the past 12 months, did you worry whether your food would run out before you got money to buy more?: Never true Do you have trouble paying for medicines?: No Do you have trouble getting transportation to medical appointments?: No Do you have trouble paying your heating and electricity bill?: No Do you have trouble taking care of your child, family member or friend?: No Do you have trouble with day-to-day activities such as bathing, preparing meals, shopping, managing finances, etc.?: No Are you currently unemployed and looking for a job?: No Are you interested in more education?: No Please select the resources that you would like help with: None Currently or been in a relationship where the following occur: No concerns reported THRIVE Score: 0 AUDIT C Alcohol Use Questionnaire (AUDIT-C) 1. How often do you have a drink containing alcohol?: Never 3. How often do you have six or more drinks on one occasion?: Never Total Score: 0 Score Reviewed/Action Taken: Yes POLLY-7 AMB Questionnaire POLLY-7 Date POLLY - 7 assessed: 12/25/24 Feeling nervous, anxious, or on edge: 0 = Not at all Not being able to stop or control worryin = Not at all Worrying too much about different things: 0 = Not at all Trouble relaxin = Not at all Being so restless that it is hard to sit still: 0 = Not at all Becoming easily annoyed or irritable: 0 = Not at all Feeling afraid as if something awful might happen: 0 = Not at all Total POLLY-7 score (0-4 normal; 5-9 mild; 10-14 moderate; 15-21 severe): 0 Source: Developed by Drs. Balwinder Crane, Babita Gaston, Adalid Hawthorne and colleagues, with an educational jaylen from [employer]. Review of Systems Const Denies chills, Denies fatigue, Denies fever(s) and Denies headache(s) ENT Denies dysphagia, Denies dizziness, Denies otalgia, Denies headache(s), Denies neck pain, Denies odynophagia and Denies sore throat Card Denies chest pain, Denies palpitations and Reports dyspnea on exertion (mild) Resp Denies chest congestion, Denies cough and Reports dyspnea on exertion (mild) GI Denies abdominal pain, Denies constipation, Denies dysphagia, Denies heartburn, Denies diarrhea, Denies nausea, Denies odynophagia and Denies vomiting Denies difficulty voiding, Denies nocturia and Denies urinary urgency Musc Reports back pain (increased lately, especially over the left side) and Denies neck pain Skin/Breast Denies rash Neuro Denies dizziness and Denies headache(s) Psych Reports anxiety (controlled on Rx) Endo Denies fatigue and Denies palpitations Physical exam (Primary Care) Vital Signs: Last Vital Signs Pulse 66 12/25/24 09:18 BP 130/82 12/25/24 09:18 Pulse Ox 96 12/25/24 09:18 Oxygen Delivery Method Room Air 12/25/24 09:18 BMI result Body Mass Index 26.2 Tobacco/Smoking Status: Tobacco use Status Tobacco use date assessed 12/25/24 12/25/24 09:24 Patient Tobacco Use Status Former Tobacco user 12/25/24 09:24 Tobacco use type Cigarette 12/25/24 09:24 e-Cigarette/Vaping Use Currently Using 12/25/24 09:24 PHQ-9: PHQ-9 Score PHQ-9: Total score 0 12/25/24 09:24 Depression Screening Interpretation: Negative Thrive Assessment: Date of Thrive Assessment Date Thrive assessed 12/25/24 12/25/24 09:24 Currently or been in a relationship where the following occur: No concerns reported Const General: no acute distress and alert HENMT Ears: TM's normal bilaterally and EAC's normal Throat: Yes posterior oropharynx normal and Yes tonsils normal (no TP congestion noted) Neck Neck: Yes no lymphadenopathy and Yes supple Resp Auscultation: clear to auscultation bilaterally, no rales and no wheezes Cardio Rate: regular rate Rhythm: regular rhythm Heart sounds: no murmurs GI Palpation (GI): Soft to palpation and nontender Auscultation: normal bowel sounds Back/Spine/Pelvis Thoracic/Lumbar Spine: paraspinal muscle tenderness on the left in the mid thoracic (just under the left scapula, mild) and Thoracic/lumbar scoliosis Skin Rashes: no rashes Extrem General: Yes no clubbing, cyanosis or edema Results Reviewed Results Reviewed: Laboratory Tests 02/24/24 12/18/24 12/18/24 07:04 07:25 07:27 WBC 7.1 Hgb 15.4 Hct 46.3 Plt Count 323 Sodium 141 Potassium 4.5 Creatinine 0.62 Estimated GFR > 60 Fasting Glucose 92 Calcium 9.3 AST 26 ALT 27 Triglycerides 151 H 149 Cholesterol 203 H 227 H LDL Cholesterol, Calc 122 H 146 H HDL Cholesterol 51 52 25-OH Vitamin D Total 33.6 TSH 3.98 Free T4 0.94 Ur Specific Ash 1.020 Urine Protein Negative Urine Glucose (UA) Negative Urine Blood Trace H Urine Nitrite Negative Ur Leukocyte Esterase Small (1+) H Coding Level of Care Code Est Pt Level 4 (39681) Complex EM visit Add On G2211 Diagnoses Essential hypertension I10 Mixed hyperlipidemia E78.2 Acquired hypothyroidism E03.9 Thyroid nodule E04.1 Age-related osteoporosis without current pathological fracture M81.0 Osteoporosis type: age-related Presence of current pathological fracture: without current pathological fracture Exertional dyspnea R06.00 Scoliosis of thoracic spine, unspecified scoliosis type M41.9 Scoliosis type: unspecified scoliosis Left-sided thoracic back pain, unspecified chronicity M54.6 Chronicity: unspecified Degeneration of intervertebral disc of lumbar region with discogenic back pain M51.360 Disc-related pain type: discogenic back pain only Anxiety F41.9 Additional Codes PHQ-9 - 21732 - PHQ-9 Billing: Yes ([id number]) Assessment & Plan Assessment & Plan (1) Essential hypertension: Code(s): I10 - Essential (primary) hypertension Category: Medical Plan: Reinforced low sodium diet - goal is systolic BP of at least 130 to 140 mm Continue Lisinopril-HCT 20-25 mg QD (2) Mixed hyperlipidemia: Code(s): E78.2 - Mixed hyperlipidemia Category: Medical Plan: Results of her labs done last week reviewed and discussed with patient - she is cautioned that her cholesterol levels have increased again from previous Reinforced low cholesterol diet - patient admits to eating a lot of eggs / egg yolks lately Continue on Atorvastatin 10 mg QD Will recheck her labs and fasting lipids in 4 months for follow up (3) Acquired hypothyroidism: Code(s): E03.9 - Hypothyroidism, unspecified Category: Medical Plan: Patient currently appears clinically euthyroid Continue Levothyroxine 125 mcg 1/2 tablet (62.5 mcg) QD Will recheck her TFTs in 4 months for follow up (4) Thyroid nodule: Code(s): E04.1 - Nontoxic single thyroid nodule Category: Medical Plan: Thyroid biopsy done initially by Dr. Berry in 2019 came back benign - benign follicular nodule Follow-up sonogram done in May 2022 showed stable thyroid nodules with no significant change from previous and recommend continuing surveillance Follow-up with endocrinology (Dr. Grijalva) as scheduled (5) Osteoporosis: Code(s): M81.0 - Age-related osteoporosis without current pathological fracture Category: Medical Qualifiers: Osteoporosis type: age-related Presence of current pathological fracture: without current pathological fracture Qualified Code(s): M81.0 - Age- related osteoporosis without current pathological fracture Plan: Repeat BMD done on 11/09/2022 showed (+) osteoporosis with no significant change from previous - lowest T-score value is -2.5 in the lumbar spine Patient was unable to tolerate Risedronate but tolerated Ibandronate without any problems She was on Ibandronate 150 mg once a month for about 3 years and this was stopped by Dr. Rueda last March 2023 for a drug holiday period Repeat BMD done a couple of months ago (October 2024) revealed that her BMD is mostly unchanged from previous except for her left femoral neck BMD which declined by -6.8% from previous Dr. Rueda recommended that patient continue to stay off Rx and get a repeat BMD in 2 years for follow up and if her BMD declines, can be started back on Ibandronate and / or referred back to endocrinology (6) Exertional dyspnea: Code(s): R06.00 - Dyspnea, unspecified Category: Medical Plan: Have discussed with patient that this is likely related to her scoliosis, which if significant can cause reduced lung capacity Chest x-rays done a few days ago on 12/22/2024 showed no acute findings Her thoracic spine x-rays revealed (+) incidental findings of aortic calcification Will send patient for echocardiogram for further evaluation of her persistent OLSEN, which patient states is starting to limit her daily activities (7) Scoliosis of thoracic spine: Code(s): M41.9 - Scoliosis, unspecified Category: Medical Qualifiers: Scoliosis type: unspecified scoliosis Qualified Code(s): M41.9 - Scoliosis, unspecified Plan: Patient has been mostly asymptomatic over the years with only (+) occasional low back pain although she reports experiencing increased pain over her left thoracic area recently for a while now Updated thoracic spine x-rays done a few days ago revealed (+) marked scoliosis with no acute fractures or dislocation and no significant degenerative changes (8) Left-sided thoracic back pain: Code(s): M54.6 - Pain in thoracic spine Category: Medical Qualifiers: Chronicity: unspecified Qualified Code(s): M54.6 - Pain in thoracic spine Plan: Have advised patient that this is likely muscular/myofascial pain related to her scoliosis Updated thoracic spine x-rays showed only (+) marked scoliosis with no significant degenerative changes Continue Tramadol 50 mg TID PRN for increased pain (Rx refilled) Patient states that Tizanidine has not helped much and would like to have this discontinued (9) Lumbar degenerative disc disease: Code(s): M51.369 - Other intervertebral disc degeneration, lumbar region without mention of lumbar back pain or lower extremity pain Category: Medical Qualifiers: Disc-related pain type: discogenic back pain only Qualified Code(s): M51.360 - Other intervertebral disc degeneration, lumbar region with discogenic back pain only Plan: Reinforced activity and weight-lifting restrictions Lumbar spine x-rays done a few days ago revealed (+) marked scoliosis with multilevel degenerative facet changes (10) Anxiety: Code(s): F41.9 - Anxiety disorder, unspecified Category: Medical Plan: Continue Hydroxyzine 25 mg TID PRN Plan Follow up in 4 months Orders: Orders Complete Blood Count Auto Diff 4 Months D64.9 - Anemia, unspecified Lipid Panel 4 Months E78.00 - Pure hypercholesterolemia, unspecified Thyroid Stimulating Hormone 4 Months E03.9 - Hypothyroidism, unspecified B Type Natriuretic Peptide 4 Months R06.00 - Dyspnea, unspecified UA CC w/rflx Micro + Cult 4 Months R30.0 - Dysuria CA echo transthoracic complete Today R06.09 - Other forms of dyspnea Comprehensive [place]. Panel Fast 4 Months E78.00 - Pure hypercholesterolemia, unspecified Free T4 (Free Thyroxine) 4 Months E03.9 - Hypothyroidism, unspecified Medications: Refilled tramadol 50 mg PO TID PRN 30 tabs 0RF pain Discontinued tizanidine Discontinued Reason: Patient no longer taking 4 mg PO TID 30 days PRN 90 tabs 1RF muscle spasticity M54.6 - Pain in thoracic spine
== END 2024-12-25 10:00 | disposition home or self-care (01) ==
LOC: HO.HMCH 09:14
PROVIDERS: PCP Internal Medicine; Visit Provider Internal Medicine
DX: I10 Essential (primary) hypertension (principal); E78.2 Mixed hyperlipidemia; E03.9 Hypothyroidism, unspecified; E04.1 Nontoxic single thyroid nodule; M81.0 Age-related osteoporosis without current pathological fracture; R06.00 Dyspnea, unspecified; M41.9 Scoliosis, unspecified; M51.360 Other intervertebral disc degeneration, lumbar region with discogenic back pain only; F41.9 Anxiety disorder, unspecified

== ENCOUNTER → 2024-12-25 09:14 | Outpatient (BNVA) | payer MEDICARE, OTHER, SELFPAY | PROVIDERS: PCP Internal Medicine; Visit Provider Internal Medicine | DX: I10 Essential (primary) hypertension (principal); E78.2 Mixed hyperlipidemia; E03.9 Hypothyroidism, unspecified; E04.1 Nontoxic single thyroid nodule; M81.0 Age-related osteoporosis without current pathological fracture; R06.00 Dyspnea, unspecified; M41.9 Scoliosis, unspecified; M51.360 Other intervertebral disc degeneration, lumbar region with discogenic back pain only; F41.9 Anxiety disorder, unspecified | CPT/HCPCS: 96127; 99212 ==

== ENCOUNTER → 2025-01-23 08:45 | Outpatient (REF) | payer MEDICARE, OTHER, SELFPAY ==
--- NOTE | 2025-01-23 08:47 | CA_ITS ---
Transthoracic Echocardiogram Patient (Last, First, Middle): Jami Alonzo L Gender: Female Date of : 1945 Age: 79 Procedure Date: 01/23/2025 Procedure Type: Transthoracic Echocardiogram Location: OP Height: 157.48 cm Weight: 63.5 kg BSA: 1.64 m2 Heart Rate: bpm BP: 160 / 90 mmHg [employer] Consultant: TO Referring MD: Edis Blanco MD Symptoms: R06.09 - Other forms of dyspnea Study Quality: Fair/Contrast ECG Rhythm: Sinus Conclusions: - The left ventricular systolic function is normal. The calculated ejection fraction is 55% by biplane method. - The basal inferior and basal inferolateral segments are hypokinetic. - No obvious valvular pathology seen on this study. - There is mild dilatation of the ascending aorta measuring 4.30 cm. Findings Procedure Information Contrast agent, definity, is being given per protocol without apparent complications. Left Ventricle Normal left ventricular cavity size. The left ventricular systolic function is normal. The calculated ejection fraction is 55% by biplane method. Diastolic function is normal for age. There is mild septal asymmetric hypertrophy. Wall Motion Rest Echo Findings The basal inferior and basal inferolateral segments are hypokinetic. Right Ventricle Normal right ventricular cavity size and systolic function. Atria Both atria are normal in size. Aortic Valve There is a normal trileaflet aortic valve. There is mild calcification of the aortic valve. There is no aortic valve stenosis. There is trace (trivial) aortic valve regurgitation. Mitral Valve The mitral valve appears normal. There is no mitral valve regurgitation. There is no mitral valve stenosis. Pulmonic Valve The pulmonic valve is likely normal. Tricuspid Valve There is trace tricuspid valve regurgitation. There is no evidence of pulmonary hypertension. Great Vessels There is mild dilatation of the ascending aorta measuring 4.30 cm. Venous The inferior vena cava is normal in size and collapses greater than 50% with inspiration. Pericardium/Pleural There is no evidence of pericardial effusion. Prior Study Comparison No prior study available for comparison. Recommendations, Care & Conclusions No obvious valvular pathology seen on this study. Measurements 2D Linear Measurements IVSd: 1.08 0.6-0.9/0.6-1.0 cm LVIDd: 4.34 3.9-5.3/4.2-5.9 cm LVIDd Index: 2.65 2.4-3.2/2.2-3.1 cm/m2 LVIDs: 3.42 2.0-3.6 cm LVPWd: 0.82 0.7-1.1 cm LA Diam: 3.50 2.7-3.8/3.0-4.0 cm LAIDs Index: 2.13 1.5-2.3 cm/m2 LV Mass: 167.31 67-162/88-224 g LV Mass Index: 102.02 43-95/49-115 g/m2 LVOT Diam: 2.00 3.0+(-)1.3 cm 2D Systolic Function EF 4C: 49.70 >55% EF 2C: 57.80 >55% EF BiP: 54.50 >55% Mitral Valve MV Pk E: 0.30 MV PK A: 0.57 MV Decel Time: 381.00 E/A: 0.50 E'Lateral: 5.00 E'Medial: 5.77 E/E' Med: 5.20 E/E' Lat: 6.00 PHT: 111.00 MVA PHT: 1.98 Decel [place]ahan: 0.79 Aortic Valve AoV Pk Sd: 1.25 AoV Mn Sd: 0.85 AoV VTI: 0.26 AoV Pk Grad: 6.00 Aov Mn Grad: 3.00 DELFINO Cont.VTI: 2.46 LVOT LVOT Pk Sd: 0.84 LVOT Mn Sd: 0.57 LVOT VTI: 0.21 LVOT Pk Grad: 3.00 LVOT Mn Grad: 1.00 LVOT Diam: 2.00 LVOT Area: 3.14 Diastolic Function MV Pk E: 0.30 MV Pk A: 0.57 E/A: 0.50 E'Medial: 5.77 E/E' Med: 5.20 E' Laterial: 5.00 E/E' Lat: 6.00 Right Ventricle TAPSE (mm): 20.70 TVS' Sd: 11.70 Great Vessels Aorta Sinus of Valsalva: 3.62 2.0-3.5 cm Ao Asc: 4.30 2.1-3.4 cm Updated in Other Vendor System with Status of Final Blake Warren MD electronically signed on 01/24/2025 3:27:49 PM with status of Final
== END ==
LOC: HO.CARD 08:45
PROVIDERS: PCP Internal Medicine; Visit Provider Internal Medicine
DX: R06.09 Other forms of dyspnea (principal)
CPT/HCPCS: 93306; Q9957

== ENCOUNTER → 2025-01-23 08:47 | Outpatient (BNV) | payer MEDICARE, OTHER, SELFPAY | PROVIDERS: PCP Internal Medicine; Visit Provider Internal Medicine | DX: I70.0 Atherosclerosis of aorta (principal); I35.1 Nonrheumatic aortic (valve) insufficiency | CPT/HCPCS: 93306 ==

== ENCOUNTER 2025-04-04 09:44 | Outpatient (AMB) | payer MEDICARE, OTHER, SELFPAY ==
[2025-04-04 09:46] VITALS: BP 116/72; PULSE 85; O2SAT 95; BMI 26.6
--- NOTE | 2025-04-04 09:46 | A.OFFVIS_ITS ---
Vital Signs 04/04/25 09:46 Height 5 ft 2 in Weight 145 lb 8.081 oz BMI 26.6 BP 116/72 Blood Pressure Location Rt brachial Position Sitting Pulse 85 Pulse Source Pulse Oximeter Pulse Oximetry (%) 95 Oxygen Delivery Method Room Air Intake Visit Reasons: Hypothyroidism Intake Note: Patient present today for Hypothyroidism office visit. Mathematician Required: No Accompanied by: Self / Same As Patient Allergies risedronate sodium Adverse Reaction (Intermediate, Verified 04/04/25 09:47) muscle pain and dizziness Medication List - Last Reconciled 04/04/25 by Cari Grijalva MD atorvastatin 10 mg PO DAILY 90 days blood pressure monitor As directed bupropion HCl XL 150 mg PO QAM 90 days hydroxyzine HCl 25 mg PO TID PRN 30 days levothyroxine 62.5 mcg (1/2 x 125 mcg) PO DAILY 30 days lisinopril-hydrochlorothiazide 20-25 mg 1 tab PO DAILY 90 days multivitamin 1 tab PO DAILY [RIGHT WRIST SPLINT As directed] tramadol 50 mg PO TID PRN HPI Comments Details: 79 yo female today for fup visit, for osteoporosis, hypothyroidism and multinodular goiter . HPI Multinodular goiter and hypothyroidism She has a PMH of a toxic multinodular goiter, she was initially treated with right hemithyroidectomy she does not remember the date, she did not became euthyroid after hemithyroidectomy, she was treated with [place], she become hypothyroid. She has remained on levothyroxine since then. She continues on half a tablet of 125 mcg tablet daily, essentially 62.5 mcg daily. Good adherence and administration. Last set of labs from November 2024 showed normal TSH and free T4. In terms of following her left-sided nodules. She had benign FNA of left mid nodule on 03/09/18, consistent with follicular nodule. She had fine-needle aspiration on 04/05/2019 of left mid and left lower pole nodules. Left mid pole nodule cytology was consistent with benign follicular nodule, [place] category 2. Left lower pole nodule was nondiagnostic. We new that we did not have enough follicular cells the day of the procedure. Patient was very uncomfortable despite using lidocaine for anesthesia. She did not allow Dr. Padilla to continue doing passes. Denies cold or heat intolerance, her weight is stable. She denies diarrhea, constipation, insomnia, fatigue, dry skin, denies dysphagia, dyspnea, dysphonia, tremors, palpitations, irritability, anxiety. Last ultrasound thyroid done 06/01/2022, I reviewed the images myself which showed the left mid dominant nodule stable in size measuring slightly smaller at 2.7 cm which is solid isoechoic with punctate echogenic foci, taller than wide, TR 5 category. A left lower pole 1 cm solid hypoechoic nodule with macrocalcification TR 4 category also remained stable. Osteoporosis Diagnosed 2017,? Risk factors: Age, being postmenopausal, Treatment history : Boniva 2019 to 2022, couldnt tolerate risedronate before that due to back pain No fractures no falls Dental care: all dentures vitamin D : 1000 units in centrum silver Calcium : 100 mg in centrum silver, milk in cereal in 2-3 times a week, yogurt: daily, cheese: everyday She does have issues with lower back pain, however has had both thoracic and lumbar spine x-rays in December 2024 which did not show any fractures. She does have degenerative disc disease. Last bone density scan 11/13/2024, showed osteopenia of the lumbar spine with T- score of-2.2, with a an increase of 3.7% compared to bone density in 2022. Left total hip T-score-1.6, consistent with osteopenia, with a decrease of I% compared to prior exam. Left femoral neck T-score-2.6, consistent with osteoporosis with a decrease of 6.8% compared to prior bone density. FRAX score elevated at the hip at 7.3% However from previous discussions with Dr. Rueda in the patient, it was thought that based on her bone density scan which had remained more less stable and her urine NTX remains suppressed, decision was made to keep her off treatment for now and monitor resorption markers and repeat bone density in 2 years which would be in October 2026 . Physical exam General: sitting comfortably in no acute distress HEENT: normocephalic/atraumatic, Neck: supple, palpable left-sided nodule Cardiac: normal heart sounds Pulm: normal breath sounds B/L, no added breath sounds Abd: not distended, no tenderness Extremities: no edema, no signs of myxedema Laboratory Tests 11/03/20 11/27/24 12/18/24 08:40 07:26 07:27 Creatinine 0.62 Estimated GFR > 60 Calcium 9.3 Albumin 4.1 N-Telopeptide X-linked 14 20 25-OH Vitamin D Total 33.6 TSH 3.98 Free T4 0.94 EXAMINATION: DXA BONE DENSITY AXIAL 11/13/24 HISTORY: Estrogen deficiency TECHNIQUE: [employer] Dual energy absorptiometry (DEXA) of the lumbar spine, total left hip, and femoral neck was performed. COMPARISON: Comparison is made with the prior examination dated 11/09/2022. FINDINGS: The bone mineral density of the lumbar spine is 0.919 with a T-score of -2.2, and a Z-score of -0.3. This is indicative of osteopenia. This represents a BMD change of 3.7% compared to the prior exam. This is statistically significant. The bone mineral density of the left total hip is 0.809 with a T-score of -1.6, and a Z-score of 0.4. This is indicative of osteopenia. This represents a BMD change of -1.0% compared to the prior exam. This is not statistically significant. The bone mineral density of the left femoral neck is 0.673 with a T-score of -2.6, and a Z-score of -0.5. This is indicative of osteoporosis. This represents a BMD change of -6.8% compared to the prior exam. FRACTURE RISK: The FRAX index suggests a ten year probability of major osteoporotic fracture of 20.2%, and of hip fracture 7.3%. 10/04/17 DEXA scan AP SPINE L1-L4: Current: BMD 0.794 g/cm2, Z-score -1.6, T-score -3.2, osteoporosis, 6.0% decrease from baseline (<5% change is not significant). Baseline: BMD 0.845 g/cm2. LEFT FEMUR, NECK: Current: BMD 0.647 g/cm2, Z-score -1.1, T-score -2.8, osteoporosis. Baseline: BMD 0.716 g/cm2. LEFT FEMUR, TOTAL: Current: BMD 0.793 g/cm2, Z-score -0.2, T-score -1.7, osteopenia, 0.9% decrease from baseline (<5% change is not significant). Baseline: BMD 0.800 g/cm2. US THYROID 06/01/2022 CLINICAL INFORMATION: Nontoxic multinodular goiter. COMPARISON: Ultrasound thyroid 09/29/2020 and 10/02/2019. US-guided thyroid biopsy 03/09/2018 and 04/05/2019. TECHNIQUE: Linear transducer grayscale and color Doppler examination with attention to the region of the thyroid. FINDINGS: SIZE: Measurements of the solitary left thyroid lobe and nodules are given in sagittal, anteroposterior and transverse dimensions respectively. Right Thyroid Lobe: Surgically absent. Left Thyroid Lobe: 4.7 x 2.7 x 2.4 cm, volume 15.7 mL. Previously 4.6 x 2.5 x 2.3 cm, volume 14.2 mL. Parenchyma: The gland echotexture is homogeneous. Thyroid vascularity is normal. Isthmus: Surgically absent. Estimated total number of nodules greater than or equal to 1 cm: 2. Program Eligibility Specialist nodules are described as follows: 1. Location: Left mid. Size: 2.7 x 2.3 x 1.8 cm, volume 6.1 mL. Previously: 3.0 x 2.3 x 2.3 cm, volume 8.0 mL. Nodule characteristics: Composition: Solid (2). Echogenicity: Isoechoic (1). Shape: Taller than wide (3). Margins: Smooth (0). Echogenic Foci: Punctate echogenic foci (3). ACR TI-RADS total points: 9 Previous: 7 ACR TI-RADS category: 5 Previous: 5 Category change corresponds to a newly listed calcifications. These appear unchanged from prior exams for example axial image 22,23,27 and 36 on September 2020 exam. Category change also corresponds to taller than wide shape. 2. Location: Left inferior. Size: 1.0 x 0.8 x 0.8 cm, volume 0.3 mL. Previously: 0.8 x 0.8 x 0.9 cm, volume 0.3 mL. Nodule characteristics: Composition: Solid (2). Echogenicity: Hypoechoic (2). Shape: Not taller than wide (0). Margins: Smooth (0). Echogenic Foci: Macrocalcifications (1). ACR TI-RADS total points: 5 Previous: 4 ACR TI-RADS category: 4 Previous: 4 3. The 6 mm hypoechoic inferior nodule is not appreciated. NODES: No lymphadenopathy is seen in the tissue surrounding the thyroid gland. US/US thyroid IMPRESSION: 2 left thyroid nodules. Fine-needle aspiration of the largest nodule according to TI RADS criteria recommended. 09/29/2020 US THYROID Right Thyroid Lobe: Surgically absent. Left Thyroid Lobe: 4.6 x 2.5 x 2.3 cm, volume 14.2 mL. Previously 4.7 x 2.8 x 2.3 cm, volume 15.8 mL. Parenchyma: The gland echotexture is heterogeneous. Thyroid vascularity is increased. Isthmus: Surgically absent. Estimated total number of nodules greater than or equal to 1 cm: 1. Program Eligibility Specialist nodules are described as follows: 1. Location: Left mid. Size: 3.0 x 2.3 x 2.3 cm, volume 8.0 mL. Previously: 3.2 x 2.5 x 2.4 cm, volume 10.4 mL. Nodule characteristics: Composition: Solid/almost completely solid (2). Echogenicity: Hypoechoic (2). Shape: Not taller than wide (0). Margins: Smooth (0). Echogenic Foci: Punctate echogenic foci (3). ACR TI-RADS total points: 7 ACR TI-RADS category: 5 Significant change in size (>/= 20% in 2 dimensions and minimal increase of 2 mm): 7 Change in features: None Change in ACR TI-RADS risk category: 5 2. Location: Left inferior. Size: 0.8 x 0.8 x 0.9 cm, volume 0.3 mL. Previously: 1.2 x 1.0 x 1.1 cm, volume 0.7 mL. Nodule characteristics: Composition: Cannot be determined (2). Echogenicity: Cannot be determined (1). Shape: Not taller than wide (0). Margins: Smooth (0). Echogenic Foci: Macrocalcifications (1). ACR TI-RADS total points: 4 ACR TI-RADS category: 4 Significant change in size (>/= 20% in 2 dimensions and minimal increase of 2 mm): Slightly improved in size. Change in features: None Change in ACR TI-RADS risk category: None 3. Location: Left inferior. Size: 0.6 x 0.5 x 0.7 cm, volume 0.1 mL. Previously: Not documented on the prior study. cm. Nodule characteristics: Composition: Cannot be determined (2). Echogenicity: Cannot be determined (1). Shape: Not taller than wide (0). Margins: Smooth (0). Echogenic Foci: None (0). ACR TI-RADS total points: 3 ACR TI-RADS category: 3 Significant change in size (>/= 20% in 2 dimensions and minimal increase of 2 mm): None Change in features: None. Change in ACR TI-RADS risk category: None. NODES: No lymphadenopathy is seen in the tissue surrounding the thyroid gland. [facility] Medical History Lumbar degenerative disc disease Acquired hypothyroidism Mixed hyperlipidemia Essential hypertension Anxiety Exertional dyspnea Left-sided thoracic back pain Non-toxic multinodular goiter Impaired fasting glucose Osteoporosis Scoliosis of thoracic spine Benign hematuria Thyroid nodule Hypothyroidism Hyperlipidemia Hypertension Surgical History History of cosmetic plastic surgery Family History Father No problems noted. Mother Diabetes Social History Housing: House Alcohol intake: current Alcohol intake frequency: a few times a month Alcohol type: wine Patient Tobacco Use Status: Former Tobacco user Tobacco use type: Cigarette e-Cigarette/Vaping Use: Currently Using Second Hand Smoke Exposure: Yes service: No Current occupational status: retired Cognitive needs: No Hearing needs: No Vision needs: No Physical Exam Vital Signs: Last Vital Signs Pulse 85 04/04/25 09:46 BP 116/72 04/04/25 09:46 Pulse Ox 95 04/04/25 09:46 Oxygen Delivery Method Room Air 04/04/25 09:46 BMI result Body Mass Index 26.6 Assessment & Plan Assessment & Plan (1) Non-toxic multinodular goiter: Code(s): E04.2 - Nontoxic multinodular goiter Category: Medical Plan: 79-year-old female with no family history of thyroid cancer with no personal history of head or neck radiation coming in today for follow up of left-sided thyroid nodules. She has a history of toxic nodular goiter many years ago, status post right hemithyroidectomy after which she did not become euthyroid, subsequently status post [place], resulting in hypothyroidism. Now followed for left-sided nodules. She had benign FNA of left mid nodule on 03/09/18, consistent with follicular nodule. She had fine-needle aspiration on 04/05/2019 of left mid and left lower pole nodules. Left mid pole nodule cytology was consistent with benign follicular nodule, [place] category 2. Left lower pole nodule was nondiagnos tic. We knew that we did not have enough follicular cells the day of the procedure. Patient was very uncomfortable despite using lidocaine for anesthesia. She did not allow Dr. Padilla to continue doing passes. Last ultrasound thyroid done 06/01/2022, I reviewed the images myself which showed the left mid dominant nodule stable in size measuring slightly smaller at 2.7 cm which is solid isoechoic with punctate echogenic foci, taller than wide, TR 5 category. A left lower pole 1 cm solid hypoechoic nodule with macrocalcification TR 4 category also remained stable. No compressive symptoms. at this point she has not had a thyroid ultrasound since the past 3 years, I will have her repeat an ultrasound now, however if that has remained stable, no need to further repeat ultrasounds, unless there is some clinical changes. Plan: -ordered ultrasound of the thyroid with follow up in 5-6 weeks to discuss results (2) Hypothyroidism: Code(s): E03.9 - Hypothyroidism, unspecified Category: Medical Qualifiers: Hypothyroidism type: postablative Qualified Code(s): E89.0 - Postprocedural hypothyroidism Plan: She has a history of toxic nodular goiter many years ago, status post right hemithyroidectomy after which she did not become euthyroid, subsequently status post [place], resulting in hypothyroidism. Clinically and biochemically euthyroid on 62.5 mcg of levothyroxine. Appears clinically biochemically euthyroid. Last set of labs normal from November 2024. Plan: -continue levothyroxine 62.5 mcg (half a pill of 125 mcg daily) -annual TFTs to be done by PCP (3) Osteoporosis: Code(s): M81.0 - Age-related osteoporosis without current pathological fracture Category: Medical Qualifiers: Osteoporosis type: age-related Presence of current pathological fracture: without current pathological fracture Qualified Code(s): M81.0 - Age- related osteoporosis without current pathological fracture Plan: 79-year-old female with a history of osteoporosis diagnosed sometime around 2018? Risk factors include age, being postmenopausal. She was treated with Boniva from 2019 to 2022. Secondary workup for osteoporosis was negative from 2021. Last bone density scan 11/13/2024, showed osteopenia of the lumbar spine with T- score of-2.2, with a an increase of 3.7% compared to bone density in 2022. Left total hip T-score-1.6, consistent with osteopenia, with a decrease of I% compared to prior exam. Left femoral neck T-score-2.6, consistent with osteoporosis with a decrease of 6.8% compared to prior bone density. FRAX score elevated at the hip at 7.3% However from previous discussions with Dr. Rueda in the patient, it was thought that based on her bone density scan which had remained more less stable and her urine NTX remains suppressed, decision was made to keep her off treatment for now and monitor resorption markers and repeat bone density in 2 years. Currently on a drug holiday with calcium and vitamin-D. Urine NTX is suppressed from November 2024. Plan is to continue to follow off pharmacologic therapy with repeat DEXA scan in October 2026, if there is significant decline she can be restarted back on ibandronate . We will plan to repeat a urine NTX/CTX sometime in 2025. Plan: -repeat bone density due October 2026 -continue vitamin-D 1000 units daily in centrum -continue maintaining good nutritional intake of calcium -exercise advised -we will plan to repeat bone resorption markers in 2025 Plan I spent 30 minutes in reviewing the record, seeing the patient and documenting in the medical record. Orders: Orders US thyroid Today E04.2 - Nontoxic multinodular goiter Patient Instructions: continue vitamin D intake in centrum Improve nutritional intake of calcium by adding another cup of milk a day walk 20 mins to 30 mins a day Do ultrasound of the thyroid , someone will call you to schedule this Follow up in 6 weeks to discuss results Coding Level of Care Code Est Pt Level 4 (33902) Diagnoses Non-toxic multinodular goiter E04.2 Postablative hypothyroidism E89.0 Hypothyroidism type: postablative Age-related osteoporosis without current pathological fracture M81.0 Osteoporosis type: age-related Presence of current pathological fracture: without current pathological fracture Time Spent (min) 30
== END 2025-04-04 10:32 | disposition home or self-care (01) ==
LOC: HO.ENCR 09:44
PROVIDERS: PCP Internal Medicine; Visit Provider Student in an Organized Health Care Education/Training Program
DX: E04.2 Nontoxic multinodular goiter (principal); E89.0 Postprocedural hypothyroidism; M81.0 Age-related osteoporosis without current pathological fracture
CPT/HCPCS: 99214

== ENCOUNTER → 2025-04-04 09:44 | Outpatient (BNVA) | payer MEDICARE, OTHER, SELFPAY | PROVIDERS: PCP Internal Medicine; Visit Provider Student in an Organized Health Care Education/Training Program | DX: E04.2 Nontoxic multinodular goiter (principal); E89.0 Postprocedural hypothyroidism; M81.0 Age-related osteoporosis without current pathological fracture; Z79.890 Hormone replacement therapy | CPT/HCPCS: 99212 ==

== ENCOUNTER 2025-05-02 06:57 | Outpatient (REF) | payer MEDICARE, OTHER, SELFPAY ==
[2025-05-02 07:09] LABS: MANUAL DIFF FLAG NO
[2025-05-02 07:29] LABS: Hematocrit 47.3 % (37.0-47.0); Hemoglobin 15.5 g/dl (12.0-16.0); Imm Gran Abs Auto 0.01 X10*3/uL (0.00-0.03); Imm Gran Pct Auto 0.1 % (0.0-0.4); Lymphocytes Absolute Auto 2.1 X10*3/uL (1.2-4.9); Mean Corpuscular HGB Conc 32.8 g/dl (31.0-35.0); Mean Corpuscular Hemoglobin 30.0 pg (27.0-33.0); Mean Corpuscular Volume 91.5 fL (80.0-98.0); NRBC Abs Auto 0.000 X10*3/uL (0.0-0.012); NRBC Pct Auto 0.0 /100WBC (0.0-0.2); Platelet Count 332 X10*3/uL (160-400); Red Blood Count 5.17 X10*6/uL (4.20-5.50); White Blood Count 7.8 X10*3/uL (4.8-10.8)
[2025-05-02 07:32] LABS: Appearance Urine Clear; Glucose Urine UA Negative (Negative); PH 6.5 (5.0-9.0); Specific Gravity - Urine 1.015 (1.005-1.025); UMIC TRIGGER UACC YES
[2025-05-02 07:57] LABS: UACC Culture Trigger YES
[2025-05-02 08:17] LABS: Alanine Aminotransferase 26 U/L (0-31); Albumin Level 4.4 g/dL (3.5-5.0); Alkaline Phosphatase 90 U/L (39-117); Anion Gap 15 (12-20); Aspartate Amino Transferase 26 U/L (5-31); Blood Urea Nitrogen 11 mg/dL (9-16); Calcium 9.4 mg/dL (8.4-10.2); Carbon Dioxide 33 mmol/L (22-29); Chloride 101 mmol/L (96-108); Cholesterol 221 mg/dL (<200); Estimated Glomerular Filt Rate > 60; HDL Cholesterol 46 mg/dL (>40); Potassium 4.5 mmol/L (3.3-5.1); Sodium 144 mmol/L (135-145); Total Protein 7.2 g/dL (6.5-8.0); Triglycerides 190 mg/dL (<150)
[2025-05-02 08:24] LABS: Free T4 (Free Thyroxine) 0.97 ng/dL (0.71-1.85); Thyroid Stimulating Hormone 3.19 uIU/mL (0.32-4.0)
[2025-05-02 09:11] LABS: B Type Natriuretic Peptide 13 pg/mL (<100)
== END 2025-05-02 06:58 | disposition home or self-care (01) ==
LOC: HO.LAB 06:57
PROVIDERS: PCP Internal Medicine; Visit Provider Internal Medicine
DX: E03.9 Hypothyroidism, unspecified (principal); D64.9 Anemia, unspecified; E78.00 Pure hypercholesterolemia, unspecified; R06.00 Dyspnea, unspecified; E55.9 Vitamin D deficiency, unspecified; R30.0 Dysuria
CPT/HCPCS: 36415; 80053; 80061; 81001; 82306; 83880; 84439; 84443; 85025; 87086

== ENCOUNTER 2025-05-08 08:50 | Outpatient (AMB) | payer MEDICARE, OTHER, SELFPAY ==
[2025-05-08 08:59] VITALS: BP 160/90; PULSE 66; O2SAT 96; BMI 26.7
--- NOTE | 2025-05-08 08:59 | A.OFFPC_ITS ---
Vital Signs 05/08/25 08:59 05/08/25 09:34 Height 5 ft 2 in Weight 146 lb 4 oz BMI 26.7 BP 160/90 H 150/90 H Blood Pressure Location Lt brachial Lt brachial Position Sitting Sitting Pulse 66 Pulse Source Pulse Oximeter Pulse Oximetry (%) 96 Oxygen Delivery Method Room Air Intake Visit Reasons: hyperlipidemia, hypothyroidism, osteoporosis, OLSEN Package Pick Up Required: No Accompanied by: Self / Same As Patient Allergies risedronate sodium Adverse Reaction (Intermediate, Verified 05/08/25 09:09) muscle pain and dizziness Medication List - Last Reconciled 05/08/25 by Edis Blanco MD atorvastatin 10 mg PO DAILY 90 days blood pressure monitor As directed bupropion HCl XL 150 mg PO QAM 90 days hydroxyzine HCl 25 mg PO TID PRN 30 days levothyroxine 62.5 mcg (1/2 x 125 mcg) PO DAILY 30 days lisinopril-hydrochlorothiazide 20-25 mg 1 tab PO DAILY 90 days multivitamin 1 tab PO DAILY [RIGHT WRIST SPLINT As directed] tramadol 50 mg PO TID PRN Tobacco use date assessed: 05/08/25 Fall risk assessment: No Falls in past year Last assessed Fall Risk: 05/08/25 Dental Screening Dental Screen Date: 05/08/25 Did you have a dental visit in the last 12 months?: No Did you have a dental problem in the last 6 months where you did not have access to dental care?: No Was dental information given to patient?: No HPI hyperlipidemia, hypothyroidism, osteoporosis, OLSEN HPI Details Patient comes in today for her follow up visit for her HTN, hyperli pidemia and hypothyroidism States that she feels okay She denies any headaches or dizziness Denies any chest pains but she continues to experience increased SOB with exertion, which sometimes limits her activities No nausea/vomiting, no abdominal pain No change in bowel habits noted Her recurrent low back pain (due to her scoliosis) have remained mostly manageable and her Tramadol Rx helps when needed She reports that she has been experiencing occasional cramping pain in both of her calf muscles with increased walking for the past few months and she has to stop and rest for a while to let the cramps subside - states that this does not occur consistently and may be a consequence of her somehow injuring her right calf muscles a few months ago She had her follow up labs done last week - to discuss her results She would also like to know how her echocardiogram done back in January 2025 came out COUNT INCLUDES THE [facility] Medical History Lumbar degenerative disc disease Acquired hypothyroidism Mixed hyperlipidemia Essential hypertension Anxiety Exertional dyspnea Left-sided thoracic back pain Non-toxic multinodular goiter Impaired fasting glucose Osteoporosis Scoliosis of thoracic spine Benign hematuria Thyroid nodule Hypothyroidism Hyperlipidemia Hypertension Surgical History History of cosmetic plastic surgery Family History Father No problems noted. Mother Diabetes Social History Housing: House Alcohol intake: current Alcohol intake frequency: a few times a month Alcohol type: wine Patient Tobacco Use Status: Former Tobacco user Tobacco use type: Cigarette e-Cigarette/Vaping Use: Currently Using Second Hand Smoke Exposure: Yes service: No Current occupational status: retired Cognitive needs: No Hearing needs: No Vision needs: No Questionnaire PHQ-9 Over the last 2 weeks, how often have you been bothered by any of the following problems? 1. Little interest or pleasure in doing things: nearly every day 2. Feeling down, depressed, or hopeless: not at all 3. Trouble falling or staying asleep, or sleeping too much: not at all 4. Feeling tired or having little energy: not at all 5. Poor appetite or overeating: not at all 6. Feeling bad about yourself - or that you are a failure or have let yourself or your family down: not at all 7. Trouble concentrating on things, such as reading the newspaper or watching television: not at all 8. Moving or speaking so slowly that other people could have noticed. Or the opposite - being so fidgety or restless that you have been moving around a lot more than usual: not at all 9. Thoughts that you would be better off or of hurting yourself in some way: not at all Total score: 3 Depression Screening Interpretation: Positive Depression Screening Follow-up: Follow-up Visit Requested Depression Screening Done: Yes [id number] - PHQ-9 Billing: Yes Source: Developed by Drs. Balwinder Crane, Babita Gaston, Adalid Hawthorne and colleagues, with an educational jaylen from [employer]. Thrive Questionnaire Date Thrive assessed: 05/08/25 I am a: Patient What is your living situation today?: I have a steady place to live Within the past 12 months, did the food you bought not last and you didn't have the money to get more?: Never true Within the past 12 months, did you worry whether your food would run out before you got money to buy more?: Never true Do you have trouble paying for medicines?: No Do you have trouble getting transportation to medical appointments?: No Do you have trouble paying your heating and electricity bill?: No Do you have trouble taking care of your child, family member or friend?: No Do you have trouble with day-to-day activities such as bathing, preparing meals, shopping, managing finances, etc.?: No Are you currently unemployed and looking for a job?: No Are you interested in more education?: No Please select the resources that you would like help with: None Currently or been in a relationship where the following occur: No concerns reported THRIVE Score: 0 AUDIT C Alcohol Use Questionnaire (AUDIT-C) 1. How often do you have a drink containing alcohol?: Never 3. How often do you have six or more drinks on one occasion?: Never Total Score: 0 Score Reviewed/Action Taken: Yes POLLY-7 AMB Questionnaire POLLY-7 Date POLLY - 7 assessed: 12/25/24 Source: Developed by Drs. Balwinder Crane, Babita Gaston, Adalid Hawthorne and colleagues, with an educational jaylen from [employer]. Review of Systems Const Denies chills, Denies fatigue, Denies fever(s) and Denies headache(s) ENT Denies dysphagia, Denies dizziness, Denies otalgia, Denies headache(s), Denies neck pain, Denies odynophagia and Denies sore throat Card Denies chest pain, Denies palpitations and Reports dyspnea on exertion (mild) Resp Denies chest congestion, Denies cough and Reports dyspnea on exertion (mild) GI Denies abdominal pain, Denies constipation, Denies dysphagia, Denies heartburn, Denies diarrhea, Denies nausea, Denies odynophagia and Denies vomiting Denies difficulty voiding, Denies nocturia and Denies urinary urgency Musc Reports back pain (especially over the left side) and Denies neck pain Skin/Breast Denies rash Neuro Denies dizziness and Denies headache(s) Psych Reports anxiety (controlled on Rx) Endo Denies fatigue and Denies palpitations Physical exam (Primary Care) Vital Signs: Last Vital Signs Pulse 66 05/08/25 08:59 BP 160/90 H 05/08/25 08:59 Pulse Ox 96 05/08/25 08:59 Oxygen Delivery Method Room Air 05/08/25 08:59 BMI result Body Mass Index 26.7 Tobacco/Smoking Status: Tobacco use Status Tobacco use date assessed 05/08/25 05/08/25 09:02 Patient Tobacco Use Status Former Tobacco user 05/08/25 09:02 Tobacco use type Cigarette 05/08/25 09:02 e-Cigarette/Vaping Use Currently Using 05/08/25 09:02 PHQ-9: PHQ-9 Score PHQ-9: Total score 3 05/08/25 09:13 Depression Screening Interpretation: Positive Depression Screening Follow-up: Follow-up Visit Requested Thrive Assessment: Date of Thrive Assessment Date Thrive assessed 05/08/25 05/08/25 09:02 Currently or been in a relationship where the following occur: No concerns reported Const General: no acute distress and alert HENMT Ears: TM's normal bilaterally and EAC's normal Throat: Yes posterior oropharynx normal and Yes tonsils normal (no TP congestion noted) Neck Neck: Yes no lymphadenopathy and Yes supple Resp Auscultation: clear to auscultation bilaterally, no rales and no wheezes Cardio Rate: regular rate Rhythm: regular rhythm Heart sounds: no murmurs GI Palpation (GI): Soft to palpation and nontender Auscultation: normal bowel sounds Back/Spine/Pelvis Thoracic/Lumbar Spine: paraspinal muscle tenderness on the left in the mid thoracic (just under the left scapula, mild) and Thoracic/lumbar scoliosis Skin Rashes: no rashes Extrem General: Yes no clubbing, cyanosis or edema Results Reviewed Results Reviewed: Laboratory Tests 12/18/24 05/02/25 05/02/25 07:27 07:03 07:08 WBC 7.8 Hgb 15.5 Hct 47.3 H Plt Count 332 Sodium 144 Potassium 4.5 Creatinine 0.61 Estimated GFR > 60 Fasting Glucose 102 H AST 26 ALT 26 B-Natriuretic Peptide 13 Triglycerides 149 190 H Cholesterol 227 H 221 H LDL Cholesterol, Calc 146 H 137 H HDL Cholesterol 52 46 25-OH Vitamin D Total 52.1 TSH 3.19 Free T4 0.97 Ur Specific [place] 1.015 Urine Protein Negative Urine Glucose (UA) Negative Urine Blood Small (1+) H Urine Nitrite Negative Ur Leukocyte Esterase Large (3+) H Laboratory Tests 05/02/25 07:08 Calcium 9.4 Coding Level of Care Code Est Pt Level 4 (94973) Diagnoses Essential hypertension I10 Mixed hyperlipidemia E78.2 Acquired hypothyroidism E03.9 Thyroid nodule E04.1 Age-related osteoporosis without current pathological fracture M81.0 Osteoporosis type: age-related Presence of current pathological fracture: without current pathological fracture Exertional dyspnea R06.00 Scoliosis of thoracic spine, unspecified scoliosis type M41.9 Scoliosis type: unspecified scoliosis Left-sided thoracic back pain, unspecified chronicity M54.6 Chronicity: unspecified Degeneration of intervertebral disc of lumbar region with discogenic back pain M51.360 Disc-related pain type: discogenic back pain only Anxiety F41.9 Additional Codes PHQ-9 - 04007 - PHQ-9 Billing: Yes ([id number]) Assessment & Plan Assessment & Plan (1) Essential hypertension: Code(s): I10 - Essential (primary) hypertension Category: Medical Plan: Reinforced low sodium diet - goal is systolic BP of at least 130 to 140 mm She has been on Lisinopril-HCT 20-25 mg QD for years now but in light of her recent echocardiogram findings of a dilated (4.30 cm) ascending aorta Will switch her over to Lisinopril 30 mg QD + HCTZ 25 mg QD and have her follow back up with one of our nurse navigators for blood pressure check in a month or so (2) Mixed hyperlipidemia: Code(s): E78.2 - Mixed hyperlipidemia Category: Medical Plan: Results of her labs done last week reviewed and discussed with patient - her cholesterol levels have improved slightly from previous but they are still elevated Reinforced low cholesterol diet Continue on Atorvastatin 10 mg QD for now and advised patient that we will have to address this better at some point but I would like to try to get her blood pressure controlled better first at this time Will recheck her labs and fasting lipids in 4 months for follow up (3) Acquired hypothyroidism: Code(s): E03.9 - Hypothyroidism, unspecified Category: Medical Plan: Patient currently appears clinically euthyroid Continue Levothyroxine 125 mcg 1/2 tablet (62.5 mcg) QD Will recheck her TFTs in 4 months for follow up (4) Thyroid nodule: Code(s): E04.1 - Nontoxic single thyroid nodule Category: Medical Plan: Thyroid biopsy done initially by Dr. Berry in 2019 came back benign - benign follicular nodule Follow-up sonogram done in May 2022 showed stable thyroid nodules with no significant change from previous and recommend continuing surveillance Follow-up with endocrinology (Dr. Grijalva) as scheduled She is currently scheduled for repeat thyroid US next week (5) Osteoporosis: Code(s): M81.0 - Age-related osteoporosis without current pathological fracture Category: Medical Qualifiers: Osteoporosis type: age-related Presence of current pathological fracture: without current pathological fracture Qualified Code(s): M81.0 - Age- related osteoporosis without current pathological fracture Plan: Repeat BMD done on 11/09/2022 showed (+) osteoporosis with no significant change from previous - lowest T-score value is -2.5 in the lumbar spine Patient was unable to tolerate Risedronate but tolerated Ibandronate without any problems She was on Ibandronate 150 mg once a month for about 3 years and this was stopped by Dr. Rueda last March 2023 for a drug holiday period Repeat BMD done a couple of months ago (October 2024) revealed that her BMD is mostly unchanged from previous except for her left femoral neck BMD which declined by -6.8% from previous Dr. Rueda recommended that patient continue to stay off Rx and get a repeat BMD in 2 years for follow up and if her BMD declines, can be started back on Ibandronate and / or referred back to endocrinology (6) Exertional dyspnea: Code(s): R06.00 - Dyspnea, unspecified Category: Medical Plan: Have discussed with patient that this is likely related to her scoliosis, which if significant can cause reduced lung capacity Chest x-rays done a few days ago on 12/22/2024 showed no acute findings Her thoracic spine x-rays revealed (+) incidental findings of aortic calcification Echocardiogram done in January 2025 revealed (+) normal left ventricular systolic function, with the calculated ejection fraction at 55% The basal inferior and basal inferolateral segments are hypokinetic and there are no obvious valvular pathology seen on this study There is mild dilatation of the ascending aorta measuring 4.30 cm (7) Scoliosis of thoracic spine: Code(s): M41.9 - Scoliosis, unspecified Category: Medical Qualifiers: Scoliosis type: unspecified scoliosis Qualified Code(s): M41.9 - Scoliosis, unspecified Plan: Patient has been mostly asymptomatic over the years with only (+) occasional low back pain although she reports experiencing increased pain over her left thoracic area recently for a while now Updated thoracic spine x-rays done a few days ago revealed (+) marked scoliosis with no acute fractures or dislocation and no significant degenerative changes (8) Left-sided thoracic back pain: Code(s): M54.6 - Pain in thoracic spine Category: Medical Qualifiers: Chronicity: unspecified Qualified Code(s): M54.6 - Pain in thoracic spine Plan: Have advised patient that this is likely muscular/myofascial pain related to her scoliosis Updated thoracic spine x-rays showed only (+) marked scoliosis with no significant degenerative changes Continue Tramadol 50 mg TID PRN for increased pain (Rx refilled) Patient states that Tizanidine has not helped much and would like to have this discontinued (9) Lumbar degenerative disc disease: Code(s): M51.369 - Other intervertebral disc degeneration, lumbar region without mention of lumbar back pain or lower extremity pain Category: Medical Qualifiers: Disc-related pain type: discogenic back pain only Qualified Code(s): M51.360 - Other intervertebral disc degeneration, lumbar region with discogenic back pain only Plan: Reinforced activity and weight-lifting restrictions Lumbar spine x-rays done a few months ago revealed (+) marked scoliosis with multilevel degenerative facet changes (10) Anxiety: Code(s): F41.9 - Anxiety disorder, unspecified Category: Medical Plan: Continue Hydroxyzine 25 mg TID PRN Plan Follow up in 4 months Orders: Orders Comprehensive Hemphill. Panel Fast 4 Months E78.00 - Pure hypercholesterolemia, unspecified Vitamin D 25-OH Total 4 Months E55.9 - Vitamin D deficiency, unspecified Complete Blood Count Auto Diff 4 Months D64.9 - Anemia, unspecified Lipid Panel 4 Months E78.00 - Pure hypercholesterolemia, unspecified Thyroid Stimulating Hormone 4 Months E03.9 - Hypothyroidism, unspecified Free T4 (Free Thyroxine) 4 Months E03.9 - Hypothyroidism, unspecified UA CC w/rflx Micro + Cult 4 Months R30.0 - Dysuria Medications: New lisinopril 30 mg PO DAILY 90 tabs 1RF 90 days hydrochlorothiazide 25 mg PO QAM 90 tabs 1RF 90 days Discontinued lisinopril-hydrochlorothiazide 20-25 mg Discontinued Reason: Doctor's Order 1 tab PO DAILY 90 days 90 tabs 3RF I10 - Essential (primary) hypertension
[2025-05-08 09:34] VITALS: BP 150/90
== END 2025-05-08 09:57 | disposition home or self-care (01) ==
LOC: HO.HMCH 08:51
PROVIDERS: PCP Internal Medicine; Visit Provider Internal Medicine
DX: I10 Essential (primary) hypertension (principal); E78.2 Mixed hyperlipidemia; E03.9 Hypothyroidism, unspecified; E04.1 Nontoxic single thyroid nodule; M81.0 Age-related osteoporosis without current pathological fracture; R06.00 Dyspnea, unspecified; M41.9 Scoliosis, unspecified; M54.6 Pain in thoracic spine; M51.360 Other intervertebral disc degeneration, lumbar region with discogenic back pain only; F41.9 Anxiety disorder, unspecified

== ENCOUNTER → 2025-05-08 08:50 | Outpatient (BNVA) | payer MEDICARE, OTHER, SELFPAY | PROVIDERS: PCP Internal Medicine; Visit Provider Internal Medicine | DX: I10 Essential (primary) hypertension (principal); E03.9 Hypothyroidism, unspecified; E78.2 Mixed hyperlipidemia; E04.1 Nontoxic single thyroid nodule; M81.0 Age-related osteoporosis without current pathological fracture; R06.00 Dyspnea, unspecified; M41.9 Scoliosis, unspecified; M51.360 Other intervertebral disc degeneration, lumbar region with discogenic back pain only; F41.9 Anxiety disorder, unspecified | CPT/HCPCS: 96127; 99212 ==

== ENCOUNTER 2025-05-15 12:04 | Outpatient (REF) | payer MEDICARE, OTHER, SELFPAY ==
--- NOTE | ~2025-05-15 | US_ITS ---
EXAMINATION: US THYROID CLINICAL INFORMATION: Right thyroidectomy. Nontoxic Multinodular goiter. History of prior benign biopsy left thyroid nodule 04/05/2019. COMPARISON: 06/01/2022. TECHNIQUE: Linear transducer grayscale and color Doppler examination with attention to the region of the thyroid. FINDINGS: SIZE: Measurements of the thyroid lobes and nodules are given in sagittal, anteroposterior and transverse dimensions respectively. Right Thyroid Lobe: Surgically absent. Left Thyroid Lobe: 5.1 x 2.7 x 2.5 cm, volume 17.9 mL. Parenchyma: The gland echotexture is mildly heterogeneous. Thyroid vascularity is normal. Isthmus: Surgically absent. Estimated total number of nodules greater than or equal to 1 cm: 2. Pharmaceutical Detailer nodules are described as follows: 1. Location: Left mid pole. Size: 2.9 x 2.2 x 2.0 cm, volume 6.5 mL. (Previously 6.1 mL) Nodule characteristics: Composition: Solid (2). Echogenicity: Cannot be determined (1). Shape: Taller than wide (3). Margins: Smooth (0). Echogenic Foci: Punctate echogenic foci (3). ACR TI-RADS total points: 9 ACR TI-RADS category: 5 2. Location: Left lower pole. Size: 0.7 x 1.1 x 0.8 cm, volume 0.3 mL. (Previously 0.3 mL) Nodule characteristics: Composition: Solid (2). Echogenicity: Hyperechoic (1). Shape: Taller than wide (3). Margins: Ill-defined (0). Echogenic Foci: Macrocalcifications (1). ACR TI-RADS total points: 7 ACR TI-RADS category: 5 (previously characterized as TR category 4). NODES: No lymphadenopathy is seen in the tissue surrounding the thyroid gland. US/US thyroid IMPRESSION: 1. There has been a right thyroidectomy including the isthmus. 2. There is a TR category 5 nodule measuring 2.9 cm in the left midpole (previously 2.7 cm). By history this has been previously biopsied with benign result. 3. There is a TR category 5 nodule measuring 1.1 cm in the left lower pole, stable from the prior examination. 4. Surrounding right thyroid parenchyma is mildly heterogeneous. ACR TI-RADS RECOMMENDATION REFERENCE: Ultrasound-guided fine-needle aspiration, followup ultrasound, no further follow up. * TR1 (0 point) and TR2 (2 points): No FNA or follow up. * TR3 (3 points): FNA if more than or equal to 2.5 cm in maximum dimension, followup ultrasound in 1, 3 and 5 years if 1.5 to 2.4 cm in maximum dimension. * TR4 (4-6 points): FNA if more than or equal to 1.5 cm in maximum dimension, followup ultrasound in 1, 2, 3 and 5 years if 1 to 1.4 cm in maximum dimension. * TR5 (more than or equal to 7 points): FNA if more than or equal to 1 cm in maximum dimension, followup ultrasound every year for 5 years if 0.5 to 0.9 cm in maximum dimension. * TR3, TR4 or TR5 nodules that are below the size threshold for followup receive no follow up. Electronically signed by: Edward Cabezas MD 05/15/2025 01:22 PM EDT
== END 2025-05-15 12:05 | disposition home or self-care (01) ==
LOC: HO.US 12:04
PROVIDERS: PCP Internal Medicine; Visit Provider Student in an Organized Health Care Education/Training Program
DX: E04.2 Nontoxic multinodular goiter (principal)
CPT/HCPCS: 76536

== ENCOUNTER → 2025-05-15 12:13 | Outpatient (BNV) | payer MEDICARE, OTHER, SELFPAY | PROVIDERS: PCP Internal Medicine; Visit Provider Radiology Diagnostic Radiology | DX: E04.2 Nontoxic multinodular goiter (principal) | CPT/HCPCS: 76536 ==

== ENCOUNTER 2025-05-31 08:31 | Outpatient (AMB) | payer MEDICARE, OTHER, SELFPAY ==
[2025-05-31 08:41] VITALS: BP 178/94; PULSE 89; O2SAT 99; BMI 26.9
--- NOTE | 2025-05-31 08:41 | A.OFFVIS_ITS ---
Vital Signs 05/31/25 08:41 Height 5 ft 2 in Weight 146 lb 13.246 oz BMI 26.9 BP 178/94 H Blood Pressure Location Lt brachial Position Sitting Pulse 89 Pulse Source Pulse Oximeter Pulse Oximetry (%) 99 Oxygen Delivery Method Room Air Intake Visit Reasons: Hypothyroidism Intake Note: Patient present today for Hypothyroidism office visit. [employer] Testing Required: No Accompanied by: Self / Same As Patient Allergies risedronate sodium Adverse Reaction (Intermediate, Verified 05/31/25 08:46) muscle pain and dizziness Medication List - Last Reconciled 05/31/25 by Cari Grijalva MD atorvastatin 10 mg PO DAILY 90 days blood pressure monitor As directed bupropion HCl XL 150 mg PO QAM 90 days hydrochlorothiazide 25 mg PO QAM 90 days hydroxyzine HCl 25 mg PO TID PRN 30 days levothyroxine 62.5 mcg (1/2 x 125 mcg) PO DAILY 30 days lisinopril 30 mg PO DAILY 90 days multivitamin 1 tab PO DAILY [RIGHT WRIST SPLINT As directed] tramadol 50 mg PO TID PRN HPI Comments Details: 79 yo female today for fup visit, for osteoporosis, hypothyroidism and multinodular goiter . HPI Multinodular goiter and hypothyroidism She has a PMH of a toxic multinodular goiter, she was initially treated with right hemithyroidectomy she does not remember the date, she did not became euthyroid after hemithyroidectomy, she was treated with [place], she become hypothyroid. She has remained on levothyroxine since then. She continues on half a tablet of 125 mcg tablet daily, essentially 62.5 mcg daily. Good adherence and administration. Last set of labs from November 2024 showed normal TSH and free T4. In terms of following her left-sided nodules. She had benign FNA of left mid nodule on 03/09/18, consistent with follicular nodule. She had fine-needle aspiration on 04/05/2019 of left mid and left lower pole nodules. Left mid pole nodule cytology was consistent with benign follicular nodule, [place] category 2. Left lower pole nodule was nondiagnostic. We new that we did not have enough follicular cells the day of the procedure. Patient was very uncomfortable despite using lidocaine for anesthesia. She did not allow Dr. Padilla to continue doing passes. Denies cold or heat intolerance, her weight is stable. She denies d iarrhea, constipation, insomnia, fatigue, dry skin, denies dysphagia, dyspnea, dysphonia, tremors, palpitations, irritability, anxiety. Last ultrasound thyroid done 06/01/2022, I reviewed the images myself which showed the left mid dominant nodule stable in size measuring slightly smaller at 2.7 cm which is solid isoechoic with punctate echogenic foci, taller than wide, TR 5 category. A left lower pole 1 cm solid hypoechoic nodule with macrocalcification TR 4 category also remained stable. Interval history 05/15/2025: Ultrasound thyroid, I reviewed the images myself shows stable size of both the left-sided nodules. No need to repeat further ultrasounds of the thyroid unless any clinical changes. PCP to monitor TFTs annually. Osteoporosis Diagnosed 2017,? Risk factors: Age, being postmenopausal, Treatment history : Boniva 2019 to 2022, couldnt tolerate risedronate before that due to back pain No fractures no falls Dental care: all dentures vitamin D : 1000 units in centrum silver Calcium : 100 mg in centrum silver, milk in cereal in 2-3 times a week, yogurt: daily, cheese: everyday She does have issues with lower back pain, however has had both thoracic and lumbar spine x-rays in December 2024 which did not show any fractures. She does have degenerative disc disease. Last bone density scan 11/13/2024, showed osteopenia of the lumbar spine with T- score of-2.2, with a an increase of 3.7% compared to bone density in 2022. Left total hip T-score-1.6, consistent with osteopenia, with a decrease of I% compared to prior exam. Left femoral neck T-score-2.6, consistent with osteoporosis with a decrease of 6.8% compared to prior bone density. FRAX score elevated at the hip at 7.3% However from previous discussions with Dr. Rueda in the patient, it was thought that based on her bone density scan which had remained more less stable and her urine NTX remains suppressed, decision was made to keep her off treatment for now and monitor resorption markers and repeat bone density in 2 years which would be in October 2026 . Physical exam General: sitting comfortably in no acute distress HEENT: normocephalic/atraumatic, Neck: supple, palpable left-sided nodule Cardiac: normal heart sounds Pulm: normal breath sounds B/L, no added breath sounds Abd: not distended, no tenderness Extremities: no edema, no signs of myxedema Laboratory Tests 11/03/20 11/27/24 12/18/24 08:40 07:26 07:27 Creatinine 0.62 Estimated GFR > 60 Calcium 9.3 Albumin 4.1 N-Telopeptide X-linked 14 20 25-OH Vitamin D Total 33.6 TSH 3.98 Free T4 0.94 EXAMINATION: DXA BONE DENSITY AXIAL 11/13/24 HISTORY: Estrogen deficiency TECHNIQUE: Geodruid Dual energy absorptiometry (DEXA) of the lumbar spine, total left hip, and femoral neck was performed. COMPARISON: Comparison is made with the prior examination dated 11/09/2022. FINDINGS: The bone mineral density of the lumbar spine is 0.919 with a T-score of -2.2, and a Z-score of -0.3. This is indicative of osteopenia. This represents a BMD change of 3.7% compared to the prior exam. This is statistically significant. The bone mineral density of the left total hip is 0.809 with a T-score of -1.6, and a Z-score of 0.4. This is indicative of osteopenia. This represents a BMD change of -1.0% compared to the prior exam. This is not statistically significant. The bone mineral density of the left femoral neck is 0.673 with a T-score of -2.6, and a Z-score of -0.5. This is indicative of osteoporosis. This represents a BMD change of -6.8% compared to the prior exam. FRACTURE RISK: The FRAX index suggests a ten year probability of major osteoporotic fracture of 20.2%, and of hip fracture 7.3%. 10/04/17 DEXA scan AP SPINE L1-L4: Current: BMD 0.794 g/cm2, Z-score -1.6, T-score -3.2, osteoporosis, 6.0% decrease from baseline (<5% change is not significant). Baseline: BMD 0.845 g/cm2. LEFT FEMUR, NECK: Current: BMD 0.647 g/cm2, Z-score -1.1, T-score -2.8, osteoporosis. Baseline: BMD 0.716 g/cm2. LEFT FEMUR, TOTAL: Current: BMD 0.793 g/cm2, Z-score -0.2, T-score -1.7, osteopenia, 0.9% decrease from baseline (<5% change is not significant). Baseline: BMD 0.800 g/cm2. US THYROID 05/15/25 CLINICAL INFORMATION: Right thyroidectomy. Nontoxic Multinodular goiter. History of prior benign biopsy left thyroid nodule 04/05/2019. COMPARISON: 06/01/2022. TECHNIQUE: Linear transducer grayscale and color Doppler examination with attention to the region of the thyroid. FINDINGS: SIZE: Measurements of the thyroid lobes and nodules are given in sagittal, anteroposterior and transverse dimensions respectively. Right Thyroid Lobe: Surgically absent. Left Thyroid Lobe: 5.1 x 2.7 x 2.5 cm, volume 17.9 mL. Parenchyma: The gland echotexture is mildly heterogeneous. Thyroid vascularity is normal. Isthmus: Surgically absent. Estimated total number of nodules greater than or equal to 1 cm: 2. Elevator Erector Helper nodules are described as follows: 1. Location: Left mid pole. Size: 2.9 x 2.2 x 2.0 cm, volume 6.5 mL. (Previously 6.1 mL) Nodule characteristics: Composition: Solid (2). Echogenicity: Cannot be determined (1). Shape: Taller than wide (3). Margins: Smooth (0). Echogenic Foci: Punctate echogenic foci (3). ACR TI-RADS total points: 9 ACR TI-RADS category: 5 2. Location: Left lower pole. Size: 0.7 x 1.1 x 0.8 cm, volume 0.3 mL. (Previously 0.3 mL) Nodule characteristics: Composition: Solid (2). Echogenicity: Hyperechoic (1). Shape: Taller than wide (3). Margins: Ill-defined (0). Echogenic Foci: Macrocalcifications (1). ACR TI-RADS total points: 7 ACR TI-RADS category: 5 (previously characterized as TR category 4). NODES: No lymphadenopathy is seen in the tissue surrounding the thyroid gland. US/US thyroid IMPRESSION: 1. There has been a right thyroidectomy including the isthmus. 2. There is a TR category 5 nodule measuring 2.9 cm in the left midpole (previously 2.7 cm). By history this has been previously biopsied with benign result. 3. There is a TR category 5 nodule measuring 1.1 cm in the left lower pole, stable from the prior examination. 4. Surrounding right thyroid parenchyma is mildly heterogeneous. US THYROID 06/01/2022 CLINICAL INFORMATION: Nontoxic multinodular goiter. COMPARISON: Ultrasound thyroid 09/29/2020 and 10/02/2019. US-guided thyroid biopsy 03/09/2018 and 04/05/2019. TECHNIQUE: Linear transducer grayscale and color Doppler examination with attention to the region of the thyroid. FINDINGS: SIZE: Measurements of the solitary left thyroid lobe and nodules are given in sagittal, anteroposterior and transverse dimensions respectively. Right Thyroid Lobe: Surgically absent. Left Thyroid Lobe: 4.7 x 2.7 x 2.4 cm, volume 15.7 mL. Previously 4.6 x 2.5 x 2.3 cm, volume 14.2 mL. Parenchyma: The gland echotexture is homogeneous. Thyroid vascularity is normal. Isthmus: Surgically absent. Estimated total number of nodules greater than or equal to 1 cm: 2. Elevator Erector Helper nodules are described as follows: 1. Location: Left mid. Size: 2.7 x 2.3 x 1.8 cm, volume 6.1 mL. Previously: 3.0 x 2.3 x 2.3 cm, volume 8.0 mL. Nodule characteristics: Composition: Solid (2). Echogenicity: Isoechoic (1). Shape: Taller than wide (3). Margins: Smooth (0). Echogenic Foci: Punctate echogenic foci (3). ACR TI-RADS total points: 9 Previous: 7 ACR TI-RADS category: 5 Previous: 5 Category change corresponds to a newly listed calcifications. These appear unchanged from prior exams for example axial image 22,23,27 and 36 on September 2020 exam. Category change also corresponds to taller than wide shape. 2. Location: Left inferior. Size: 1.0 x 0.8 x 0.8 cm, volume 0.3 mL. Previously: 0.8 x 0.8 x 0.9 cm, volume 0.3 mL. Nodule characteristics: Composition: Solid (2). Echogenicity: Hypoechoic (2). Shape: Not taller than wide (0). Margins: Smooth (0). Echogenic Foci: Macrocalcifications (1). ACR TI-RADS total points: 5 Previous: 4 ACR TI-RADS category: 4 Previous: 4 3. The 6 mm hypoechoic inferior nodule is not appreciated. NODES: No lymphadenopathy is seen in the tissue surrounding the thyroid gland. US/US thyroid IMPRESSION: 2 left thyroid nodules. Fine-needle aspiration of the largest nodule according to TI RADS criteria recommended. 09/29/2020 US THYROID Right Thyroid Lobe: Surgically absent. Left Thyroid Lobe: 4.6 x 2.5 x 2.3 cm, volume 14.2 mL. Previously 4.7 x 2.8 x 2.3 cm, volume 15.8 mL. Parenchyma: The gland echotexture is heterogeneous. Thyroid vascularity is increased. Isthmus: Surgically absent. Estimated total number of nodules greater than or equal to 1 cm: 1. Elevator Erector Helper nodules are described as follows: 1. Location: Left mid. Size: 3.0 x 2.3 x 2.3 cm, volume 8.0 mL. Previously: 3.2 x 2.5 x 2.4 cm, volume 10.4 mL. Nodule characteristics: Composition: Solid/almost completely solid (2). Echogenicity: Hypoechoic (2). Shape: Not taller than wide (0). Margins: Smooth (0). Echogenic Foci: Punctate echogenic foci (3). ACR TI-RADS total points: 7 ACR TI-RADS category: 5 Significant change in size (>/= 20% in 2 dimensions and minimal increase of 2 mm): 7 Change in features: None Change in ACR TI-RADS risk category: 5 2. Location: Left inferior. Size: 0.8 x 0.8 x 0.9 cm, volume 0.3 mL. Previously: 1.2 x 1.0 x 1.1 cm, volume 0.7 mL. Nodule characteristics: Composition: Cannot be determined (2). Echogenicity: Cannot be determined (1). Shape: Not taller than wide (0). Margins: Smooth (0). Echogenic Foci: Macrocalcifications (1). ACR TI-RADS total points: 4 ACR TI-RADS category: 4 Significant change in size (>/= 20% in 2 dimensions and minimal increase of 2 mm): Slightly improved in size. Change in features: None Change in ACR TI-RADS risk category: None 3. Location: Left inferior. Size: 0.6 x 0.5 x 0.7 cm, volume 0.1 mL. Previously: Not documented on the prior study. cm. Nodule characteristics: Composition: Cannot be determined (2). Echogenicity: Cannot be determined (1). Shape: Not taller than wide (0). Margins: Smooth (0). Echogenic Foci: None (0). ACR TI-RADS total points: 3 ACR TI-RADS category: 3 Significant change in size (>/= 20% in 2 dimensions and minimal increase of 2 mm): None Change in features: None. Change in ACR TI-RADS risk category: None. NODES: No lymphadenopathy is seen in the tissue surrounding the thyroid gland. [facility] Medical History Lumbar degenerative disc disease Acquired hypothyroidism Mixed hyperlipidemia Essential hypertension Anxiety Exertional dyspnea Left-sided thoracic back pain Non-toxic multinodular goiter Impaired fasting glucose Osteoporosis Scoliosis of thoracic spine Benign hematuria Thyroid nodule Hypothyroidism Hyperlipidemia Hypertension Surgical History History of cosmetic plastic surgery Family History Father No problems noted. Mother Diabetes Social History Housing: House Alcohol intake: current Alcohol intake frequency: a few times a month Alcohol type: wine Patient Tobacco Use Status: Former Tobacco user Tobacco use type: Cigarette e-Cigarette/Vaping Use: Currently Using Second Hand Smoke Exposure: Yes service: No Current occupational status: retired Cognitive needs: No Hearing needs: No Vision needs: No Physical Exam Vital Signs: Last Vital Signs Pulse 89 05/31/25 08:41 BP 178/94 H 05/31/25 08:41 Pulse Ox 99 05/31/25 08:41 Oxygen Delivery Method Room Air 05/31/25 08:41 BMI result Body Mass Index 26.9 Assessment & Plan Assessment & Plan (1) Non-toxic multinodular goiter: Code(s): E04.2 - Nontoxic multinodular goiter Category: Medical Plan: 79-year-old female with no family history of thyroid cancer with no personal history of head or neck radiation coming in today for follow up of left-sided thyroid nodules. She has a history of toxic nodular goiter many years ago, status post right hemithyroidectomy after which she did not become euthyroid, subsequently status post [place], resulting in hypothyroidism. Now followed for left-sided nodules. She had benign FNA of left mid nodule on 03/09/18, consistent with follicular nodule. She had fine-needle aspiration on 04/05/2019 of left mid and left lower pole nodules. Left mid pole nodule cytology was consistent with benign follicular nodule, [place] category 2. Left lower pole nodule was nondiagnosti c. We knew that we did not have enough follicular cells the day of the procedure. Patient was very uncomfortable despite using lidocaine for anesthesia. She did not allow Dr. Padilla to continue doing passes. Last ultrasound thyroid done 06/01/2022, I reviewed the images myself which showed the left mid dominant nodule stable in size measuring slightly smaller at 2.7 cm which is solid isoechoic with punctate echogenic foci, taller than wide, TR 5 category. A left lower pole 1 cm solid hypoechoic nodule with macrocalcification TR 4 category also remained stable. No compressive symptoms. 05/15/2025: Ultrasound thyroid, I reviewed the images myself shows stable size of both the left-sided nodules. At this point these nodules have been stable in size over the past 5-6 years. The left mid lobe dominant nodule has been biopsied before X 2 and was benign. Plan: No need to repeat further ultrasounds of the thyroid unless any clinical changes. PCP to monitor TFTs annually. (2) Hypothyroidism: Code(s): E03.9 - Hypothyroidism, unspecified Category: Medical Qualifiers: Hypothyroidism type: postablative Qualified Code(s): E89.0 - Postprocedural hypothyroidism Plan: She has a history of toxic nodular goiter many years ago, status post right hemithyroidectomy after which she did not become euthyroid, subsequently status post [place], resulting in hypothyroidism. Clinically and biochemically euthyroid on 62.5 mcg of levothyroxine. Appears clinically biochemically euthyroid. Last set of labs normal from November 2024. Plan: -continue levothyroxine 62.5 mcg (half a pill of 125 mcg daily) -annual TFTs to be done by PCP (3) Osteoporosis: Code(s): M81.0 - Age-related osteoporosis without current pathological fracture Category: Medical Qualifiers: Osteoporosis type: age-related Presence of current pathological fracture: without current pathological fracture Qualified Code(s): M81.0 - Age- related osteoporosis without current pathological fracture Plan: 79-year-old female with a history of osteoporosis diagnosed sometime around 2018? Risk factors include age, being postmenopausal. She was treated with Boniva from 2019 to 2022. Secondary workup for osteoporosis was negative from 2021. Last bone density scan 11/13/2024, showed osteopenia of the lumbar spine with T- score of-2.2, with a an increase of 3.7% compared to bone density in 2022. Left total hip T-score-1.6, consistent with osteopenia, with a decrease of I% c ompared to prior exam. Left femoral neck T-score-2.6, consistent with osteoporosis with a decrease of 6.8% compared to prior bone density. FRAX score elevated at the hip at 7.3% However from previous discussions with Dr. Rueda in the patient, it was thought that based on her bone density scan which had remained more less stable and her urine NTX remains suppressed, decision was made to keep her off treatment for now and monitor resorption markers and repeat bone density in 2 years. Currently on a drug holiday with calcium and vitamin-D. Urine NTX is suppressed from November 2024. Plan is to continue to follow off pharmacologic therapy with repeat DEXA scan in October 2026, if there is significant decline she can be restarted back on ibandronate . We will plan to repeat a urine NTX/CTX prior to her next follow up in 1 year in 2025 Plan: -repeat bone density due October 2026 -continue vitamin-D 1000 units daily in centrum -continue maintaining good nutritional intake of calcium -exercise advised -ordered calcium, albumin, vitamin-D, phosphorus, urine NTX, CTX, bone specific alkaline phosphatase, creatinine to be done prior to next follow up in 1 year Plan I spent 30 minutes in reviewing the record, seeing the patient and documenting in the medical record. Orders: Orders Calcium 05/05/26 M81.0 - Age-related osteoporosis without current pathological fracture Phosphorus 05/05/26 M81.0 - Age-related osteoporosis without current pathological fracture Vitamin D 25-OH Total 05/05/26 M81.0 - Age-related osteoporosis without current pathological fracture Collagen Crosslinks NTX 05/05/26 M81.0 - Age-related osteoporosis without current pathological fracture Albumin Level 05/05/26 M81.0 - Age-related osteoporosis without current pathological fracture Collagen Type I C-Telopeptide 05/05/26 M81.0 - Age-related osteoporosis without current pathological fracture Alkaline Phosphatase Bone 05/05/26 M81.0 - Age-related osteoporosis without current pathological fracture Creatinine 05/05/26 M81.0 - Age-related osteoporosis without current pathological fracture Patient Instructions: -continue vitamin-D 1000 units daily in centrum -continue maintaining good nutritional intake of calcium -exercise advised -do fasting 08:00 blood work and 2nd urine of the day fasting 2-3 weeks prior to your next follow up with me in 1 year Coding Level of Care Code Est Pt Level 4 (96322) Diagnoses Non-toxic multinodular goiter E04.2 Postablative hypothyroidism E89.0 Hypothyroidism type: postablative Age-related osteoporosis without current pathological fracture M81.0 Osteoporosis type: age-related Presence of current pathological fracture: without current pathological fracture Time Spent (min) 30
== END 2025-05-31 09:17 | disposition home or self-care (01) ==
LOC: HO.ENCR 08:32
PROVIDERS: PCP Internal Medicine; Visit Provider Student in an Organized Health Care Education/Training Program
DX: E04.2 Nontoxic multinodular goiter (principal); E89.0 Postprocedural hypothyroidism; M81.0 Age-related osteoporosis without current pathological fracture
CPT/HCPCS: 99214

== ENCOUNTER → 2025-05-31 08:31 | Outpatient (BNVA) | payer MEDICARE, OTHER, SELFPAY | PROVIDERS: PCP Internal Medicine; Visit Provider Student in an Organized Health Care Education/Training Program | DX: E89.0 Postprocedural hypothyroidism (principal); E04.2 Nontoxic multinodular goiter; M81.0 Age-related osteoporosis without current pathological fracture; Z85.850 Personal history of malignant neoplasm of thyroid; Z79.890 Hormone replacement therapy; Z87.891 Personal history of nicotine dependence | CPT/HCPCS: 99212 ==

== ENCOUNTER → 2025-06-10 09:12 | Outpatient (BNVA) | payer MEDICARE, OTHER, SELFPAY | PROVIDERS: PCP Internal Medicine | DX: Z01.30 Encounter for examination of blood pressure without abnormal findings (principal) | CPT/HCPCS: 99211 ==

== ENCOUNTER → 2025-06-28 08:53 | Outpatient (BNVA) | payer MEDICARE, OTHER, SELFPAY | PROVIDERS: PCP Internal Medicine | DX: Z01.30 Encounter for examination of blood pressure without abnormal findings (principal) | CPT/HCPCS: 99211 ==